=== PATIENT | female | born 1960 | race Caucasian/White ===

== ENCOUNTER 2016-09-15 16:33 | Inpatient (IN) ==
[2016-09-15 17:13] LABS: Basophils % 0.3 %; Eosinophils # 0.2 K/mcL (0.0-0.6); Eosinophils % 1.6 %; Hematocrit 42.5 % (35.3-44.9); Hemoglobin 13.4 g/dL (11.5-15.4); Immature Granulocytes % 0.4 % (0-4); Lymphocytes # 2.9 K/mcL (0.6-4.6); Lymphocytes % 26.5 %; Mean Corpuscular HGB Conc 31.5 g/dL (31.6-35.5); Mean Corpuscular Hemoglobin 27.3 pg (28.0-33.3); Mean Corpuscular Volume 86.7 fL (83.0-100.0); Mean Platelet Volume 11.7 fL (9.4-12.4); Neutrophils # 6.9 K/mcL (1.6-8.9); Platelet Count 423 K/mcL (140-400); Segmented Neutrophils % 62.2 %
[2016-09-15 17:16] LABS: INR 1.1; Prothrombin Time 12.1 Seconds (9.4-12.1)
[2016-09-15 17:18] LABS: Bilirubin,Urine Negative (Negative); Blood,Urine Negative (Negative); Clarity,Urine Cloudy (Clear); Color,Urine Yellow (Yellow); Glucose,Urine (UA) Normal (Normal); Ketones,Urine Negative (Negative); Leukocyte Esterase,Urine Negative (Negative); Nitrite,Urine Negative (Negative); Protein,Urine Negative (Neg-Trace); Specific Gravity,Urine 1.005 (1.010-1.025); Urobilinogen,Urine Normal (Normal)
[2016-09-15 17:25] LABS: VBG HCO3 28.1 mEq/L (21-27); VBG PH 7.34 pH Units (7.32-7.42)
[2016-09-15 17:28] LABS: Amphetamine Screen,Urine Negative ng/mL (Cutoff=1000); Barbiturate Screen,Urine Negative ng/mL (Cutoff=200); Benzodiazepines Screen,Urine Positive ng/mL (Cutoff=200); Cannabinoid Screen,Urine Positive ng/mL (Cutoff = 50); Cocaine Screen,Urine Negative ng/mL (Cutoff= 300); Opiate Screen,Urine Negative ng/mL (Cutoff=300); Phencyclidine Screen,Urine Negative ng/mL (Cutoff=25)
[2016-09-15 17:29] LABS: Squamous Epithelial Cell,Urine Many per lpf (None-Few)
[2016-09-15] MEDS ORDERED: 0.9 % Sodium Chloride 1,000 ML IVC ONE (17:30)
[2016-09-15 17:31] LABS: Bacteria,Urine Moderate per hpf (None-Few); RBC,Urine 0-3 per hpf (0-3)
[2016-09-15 17:31] LABS: Alanine Aminotransferase 7 Units/L (0-55); Albumin 2.9 g/dL (3.5-5.0); Albumin/Globulin Ratio 0.7 (1.1-2.2); Alkaline Phosphatase 162 Units/L (38-126); Aspartate Amino Transferase 16 Units/L (5-34); BUN/Creatinine Ratio 4 (6-26); Bilirubin,Total 0.3 mg/dL (0.2-1.2); Calcium 9.4 mg/dL (8.6-10.8); Carbon Dioxide 25 mEq/L (19-29); Chloride 105 mEq/L (98-109); Globulin 3.9 g/dL (2.4-3.5); Glucose 103 mg/dL (70-99); Osmolality,Calculated 289 (280-300); Potassium 3.1 mEq/L (3.5-4.5); Sodium 141 mEq/L (136-145); Total Protein 6.8 g/dL (6.0-8.3); eGFR For African Americans > 60 (> 60); eGFR For Non-African Americans > 60 (> 60)
[2016-09-15 17:34] LABS: Acetaminophen < 1.0 mcg/mL (10-30); Blood Urea Nitrogen 4 mg/dL (7-20); Ethanol < 10 mg/dL (0-10)
[2016-09-15 17:35] LABS: Salicylate < 5.0 mg/dL (15-30)
[2016-09-15 17:51] LABS: Thyroid Stimulating Hormone 1.623 mcIU/mL (0.350-4.840)
[2016-09-15] MEDS ORDERED: Aspirin 81 MG TAB.CHEW PO STA (18:00)
--- NOTE | 2016-09-15 18:44 | Emergency Department Note ---
Disposition Clinical Impression: CVA (cerebral vascular accident) Qualifiers: CVA mechanism: other Qualified Code(s): I63.8 - Other cerebral infarction Disposition: Admitted As Inpatient Condition: Undetermined General Adult HPI - General Chief complaint: ED Neuro Symptoms/Deficit Stated complaint: neuro symptoms x's 2 days Source: EMS Limitations: physical limitation Nursing Notes Reviewed: Yes Vital Signs Reviewed: Yes - History of Present Illness HPI Narrative: This is a 56-year-old female who presents with concern for confusion. She does not a history of psychiatric-related diseases and is questionably residing in a psychiatric facility. Apparently they noticed that she has been more confused over the past 2 days. She complained of some difficulty finding words as well as some dysarthria. She had no weakness. Ultimately they sent her to the emergency room for evaluation of her she became lost on her way here and was found actually at the outpatient lab. She was walking around and acting confused. The onset of her symptoms was 2 days ago. She has no history of past stroke. She has no chest pain. She has no nausea. She has no vomiting. She has no diarrhea. . Pain Scale: 0 - Related Data Home Medications Medication Instructions Recorded Confirmed Benztropine [Cogentin] 1 mg PO HS 02/17/15 09/15/16 Cholecalciferol (Vitamin D3) 1,000 mg PO DAILY 02/17/15 09/15/16 [Vitamin D] Diazepam [Valium] 5 mg PO BID 02/17/15 09/15/16 Omeprazole [Prilosec] 40 mg PO DAILY 02/17/15 09/15/16 Pravastatin Sodium [Pravachol] 40 mg PO HS 02/17/15 09/15/16 Pregabalin [Lyrica] 100 mg PO TID 02/17/15 09/15/16 Albuterol Sulfate [Proair Hfa] 2 puff IH QID PRN 07/20/16 09/15/16 Budesonide/Formoterol 160/4.5 2 puff IH BIDR 07/20/16 09/15/16 [Symbicort 160/4.5] Doxepin HCl 10 mg PO TID 07/20/16 09/15/16 diazePAM [Valium] 2 mg PO BID 07/20/16 09/15/16 lamoTRIgine [Lamotrigine] 200 mg PO QAM 07/20/16 09/15/16 Albuterol Neb [Proventil Neb] 2.5 mg IH TID PRN 09/15/16 09/15/16 Lurasidone HCl [Latuda] 120 mg PO DAILY 09/15/16 09/15/16 Oxycodone HCl 10 mg PO Q6H PRN 09/15/16 09/15/16 Trazodone HCl 200 mg PO HS 09/15/16 09/15/16 rOPINIRole [Requip] 1 mg PO HS 09/15/16 09/15/16 Allergies Allergy/AdvReac Type Severity Reaction Status Date / Time Erythromycin Base Allergy Swelling Verified 09/15/16 16:35 of Lip/Tongue/Throat hydroxyzine [From Vistaril] Allergy See Verified 09/15/16 16:35 Comments Penicillins Allergy Swelling Verified 09/15/16 16:35 of Lip/Tongue/Throat All systems ED: reviewed and negative except as stated. 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 history - Social History Smoking Status: Current every day smoker Smokeless Tobacco Status: No Alcohol use: Reports: none Drug use: Reports: marijuana Physical Exam - General Limitations: physical limitation General appearance: alert, in no apparent distress - Head Head exam: atraumatic - Eye Eye exam: Present: normal appearance - ENT ENT exam: normal exam - Neck Neck exam: Present: normal inspection - Chest Chest inspection: Present: normal inspection - Respiratory Respiratory exam: Present: normal lung sounds bilaterally - Cardiovascular Cardiovascular exam: Present: regular rate, normal rhythm - Abdominal Exam Abdominal exam: Present: soft, Non-Tender - Extremities Exam Extremities exam: Present: normal inspection - Expanded Lower Extremity Exam Neurovascular/Tendon exam: Present: normal capillary refill Gait: observed and normal - Back Exam Back exam: Present: normal inspection - Neurological Exam Neurological exam: Present: alert, normal gait, reflexes normal. Absent: oriented X3, motor sensory deficit - Psychiatric Psychiatric exam: Present: depressed, flat affect - Skin Skin exam: Present: warm, dry - Other Other exam information: Mild dysarthia, no focal weakness, No sensory abnormality. Course Vital Signs Temperature 98.0 F 09/15/16 16:35 Pulse Rate 94 09/15/16 16:35 Respiratory Rate 15 09/15/16 16:35 Blood Pressure 139/94 09/15/16 16:35 O2 Sat by Pulse Oximetry 94 09/15/16 16:35 Temperature 98.0 F 09/15/16 16:35 Pulse Rate 87 09/15/16 18:32 Respiratory Rate 16 09/15/16 18:32 Blood Pressure 125/84 09/15/16 18:32 O2 Sat by Pulse Oximetry 98 09/15/16 18:10 Oxygen Delivery Oxygen Delivery Nasal Cannula Medical Decision Making - MDM Narrative Medical decision making narrative: I suspect acute stroke. As such I did order a CTA of the head and neck. This does show that she had a subacute stroke which per the timing of her symptoms correlates accurately. I would implement strategies for permissive hypertension at this point. Bedside swallowing evaluation. 325 mg aspirin given. Monitor neuro status. NIH score of 1 at time of admission. Stroke alert not called as she is 2 days into her disease process. We will need to admit for stroke workup. She was ultimately found to have lactic acidosis. IV hydration was provided. Repeat lactate was obtained. I do not suspect infection at this time. She is afebrile. She has no leukocytosis. She does have urine drug screen positive for benzodiazepines as well as cannabinoids - Medical Records Medical records reviewed: Yes I reviewed the patient's medical records. - Lab Data Lab results reviewed: Yes I reviewed the patient's lab results. Result diagrams: 09/15/16 16:58 09/15/16 16:58 Lab Results 09/15/16 09/15/16 09/15/16 Range/Units 16:45 16:45 16:58 WBC 11.1 (4.3-11.1) K/mcL RBC 4.90 (3.82-4.97) M/mcL Hgb 13.4 (11.5-15.4) g/dL Hct 42.5 (35.3-44.9) % MCV 86.7 (83.0-100.0) fL MCH 27.3 L (28.0-33.3) pg MCHC 31.5 L (31.6-35.5) g/dL RDW 16.0 H (11.5-14.5) % Plt Count 423 H (140-400) K/mcL MPV 11.7 (9.4-12.4) fL Immature Gran % 0.4 (0-4) % Seg Neutrophils % 62.2 % Lymphocytes % 26.5 % Monocytes % 9.0 % Eosinophils % 1.6 % Basophils % 0.3 % Neutrophils # 6.9 (1.6-8.9) K/mcL Lymphocytes # 2.9 (0.6-4.6) K/mcL Monocytes # 1.0 (0.0-1.3) K/mcL Eosinophils # 0.2 (0.0-0.6) K/mcL Basophils # 0.0 (0.0-0.2) K/mcL PT (9.4-12.1) Seconds INR VBG pH (7.32-7.42) pH Units VBG pCO2 (41-51) mmHg VBG pO2 (25-40) mmHg VBG HCO3 (21-27) mEq/L Sodium (136-145) mEq/L Potassium (3.5-4.5) mEq/L Chloride (98-109) mEq/L Carbon Dioxide (19-29) mEq/L BUN (7-20) mg/dL Creatinine (0.57-1.11) mg/dL Est GFR ( Amer) (> 60) Est GFR (Non-Af Amer) (> 60) BUN/Creatinine Ratio (6-26) Glucose (70-99) mg/dL Calculated Osmolality (280-300) Lactic Acid (0.5-2.2) mmol/L Calcium (8.6-10.8) mg/dL Total Bilirubin (0.2-1.2) mg/dL AST (5-34) Units/L ALT (0-55) Units/L Alkaline Phosphatase (38-126) Units/L Ammonia (18-72) mcmol/L Troponin I (0-0.03) ng/mL B-Natriuretic Peptide (0-100) pg/mL Serum Total Protein (6.0-8.3) g/dL Albumin (3.5-5.0) g/dL Globulin (2.4-3.5) g/dL Albumin/Globulin Ratio (1.1-2.2) TSH (0.350-4.840) mcIU/mL Urine Color Yellow (Yellow) Urine Clarity Cloudy A (Clear) Urine pH 6.0 (5.0-8.0) pH Units Ur Specific [place] 1.005 L (1.010-1.025) Urine Protein Negative (Neg-Trace) mg/dL Urine Glucose (UA) Normal (Normal) mg/dL Urine Ketones Negative (Negative) mg/dL Urine Blood Negative (Negative) Urine Nitrite Negative (Negative) Urine Bilirubin Negative (Negative) Urine Urobilinogen Normal (Normal) mg/dL Ur Leukocyte Esterase Negative (Negative) Urine Microscopic RBC 0-3 (0-3) per hpf Urine Microscopic WBC 5-15 H (0-3) per hpf Ur Squamous Epith Cells Many H (None-Few) per lpf Urine Bacteria Moderate H (None-Few) per hpf Hyaline Casts Test Not Performed Ur Culture Indicated? YES A (NO) Salicylates (15-30) mg/dL Urine Opiates Screen Negative (Hhfgzf=040) ng/mL Acetaminophen (10-30) mcg/mL Ur Barbiturates Screen Negative (Rptwwy=627) ng/mL Ur Phencyclidine Scrn Negative (Cutoff=25) ng/mL Ur Amphetamines Screen Negative (Biblwi=7743) ng/mL U Benzodiazepines Scrn Positive H (Qcasrr=561) ng/mL Urine Cocaine Screen Negative (Cutoff= 300) ng/mL U Marijuana (THC) Screen Positive H (Cutoff = 50) ng/mL Ethyl Alcohol (0-10) mg/dL 09/15/16 09/15/16 09/15/16 Range/Units 16:58 16:58 16:58 WBC (4.3-11.1) K/mcL RBC (3.82-4.97) M/mcL Hgb (11.5-15.4) g/dL Hct (35.3-44.9) % MCV (83.0-100.0) fL MCH (28.0-33.3) pg MCHC (31.6-35.5) g/dL RDW (11.5-14.5) % Plt Count (140-400) K/mcL MPV (9.4-12.4) fL Immature Gran % (0-4) % Seg Neutrophils % % Lymphocytes % % Monocytes % % Eosinophils % % Basophils % % Neutrophils # (1.6-8.9) K/mcL Lymphocytes # (0.6-4.6) K/mcL Monocytes # (0.0-1.3) K/mcL Eosinophils # (0.0-0.6) K/mcL Basophils # (0.0-0.2) K/mcL PT 12.1 (9.4-12.1) Seconds INR 1.1 VBG pH (7.32-7.42) pH Units VBG pCO2 (41-51) mmHg VBG pO2 (25-40) mmHg VBG HCO3 (21-27) mEq/L Sodium 141 (136-145) mEq/L Potassium 3.1 L (3.5-4.5) mEq/L Chloride 105 (98-109) mEq/L Carbon Dioxide 25 (19-29) mEq/L BUN 4 L (7-20) mg/dL Creatinine 0.90 (0.57-1.11) mg/dL Est GFR ( Amer) > 60 (> 60) Est GFR (Non-Af Amer) > 60 (> 60) BUN/Creatinine Ratio 4 L (6-26) Glucose 103 H (70-99) mg/dL Calculated Osmolality 289 (280-300) Lactic Acid 2.6 H (0.5-2.2) mmol/L Calcium 9.4 (8.6-10.8) mg/dL Total Bilirubin 0.3 (0.2-1.2) mg/dL AST 16 (5-34) Units/L ALT 7 (0-55) Units/L Alkaline Phosphatase 162 H (38-126) Units/L Ammonia (18-72) mcmol/L Troponin I (0-0.03) ng/mL B-Natriuretic Peptide (0-100) pg/mL Serum Total Protein 6.8 (6.0-8.3) g/dL Albumin 2.9 L (3.5-5.0) g/dL Globulin 3.9 H (2.4-3.5) g/dL Albumin/Globulin Ratio 0.7 L (1.1-2.2) TSH 1.623 (0.350-4.840) mcIU/mL Urine Color (Yellow) Urine Clarity (Clear) Urine pH (5.0-8.0) pH Units Ur Specific [place] (1.010-1.025) Urine Protein (Neg-Trace) mg/dL Urine Glucose (UA) (Normal) mg/dL Urine Ketones (Negative) mg/dL Urine Blood (Negative) Urine Nitrite (Negative) Urine Bilirubin (Negative) Urine Urobilinogen (Normal) mg/dL Ur Leukocyte Esterase (Negative) Urine Microscopic RBC (0-3) per hpf Urine Microscopic WBC (0-3) per hpf Ur Squamous Epith Cells (None-Few) per lpf Urine Bacteria (None-Few) per hpf Hyaline Casts Ur Culture Indicated? (NO) Salicylates < 5.0 L (15-30) mg/dL Urine Opiates Screen (Ojivmr=764) ng/mL Acetaminophen < 1.0 L (10-30) mcg/mL Ur Barbiturates Screen (Vfexhw=500) ng/mL Ur Phencyclidine Scrn (Cutoff=25) ng/mL Ur Amphetamines Screen (Pihatu=6149) ng/mL U Benzodiazepines Scrn (Fklvvm=822) ng/mL Urine Cocaine Screen (Cutoff= 300) ng/mL U Marijuana (THC) Screen (Cutoff = 50) ng/mL Ethyl Alcohol < 10 (0-10) mg/dL 09/15/16 09/15/16 09/15/16 Range/Units 16:58 16:58 16:58 WBC (4.3-11.1) K/mcL RBC (3.82-4.97) M/mcL Hgb (11.5-15.4) g/dL Hct (35.3-44.9) % MCV (83.0-100.0) fL MCH (28.0-33.3) pg MCHC (31.6-35.5) g/dL RDW (11.5-14.5) % Plt Count (140-400) K/mcL MPV (9.4-12.4) fL Immature Gran % (0-4) % Seg Neutrophils % % Lymphocytes % % Monocytes % % Eosinophils % % Basophils % % Neutrophils # (1.6-8.9) K/mcL Lymphocytes # (0.6-4.6) K/mcL Monocytes # (0.0-1.3) K/mcL Eosinophils # (0.0-0.6) K/mcL Basophils # (0.0-0.2) K/mcL PT (9.4-12.1) Seconds INR VBG pH (7.32-7.42) pH Units VBG pCO2 (41-51) mmHg VBG pO2 (25-40) mmHg VBG HCO3 (21-27) mEq/L Sodium (136-145) mEq/L Potassium (3.5-4.5) mEq/L Chloride (98-109) mEq/L Carbon Dioxide (19-29) mEq/L BUN (7-20) mg/dL Creatinine (0.57-1.11) mg/dL Est GFR ( Amer) (> 60) Est GFR (Non-Af Amer) (> 60) BUN/Creatinine Ratio (6-26) Glucose (70-99) mg/dL Calculated Osmolality (280-300) Lactic Acid (0.5-2.2) mmol/L Calcium (8.6-10.8) mg/dL Total Bilirubin (0.2-1.2) mg/dL AST (5-34) Units/L ALT (0-55) Units/L Alkaline Phosphatase (38-126) Units/L Ammonia 20 (18-72) mcmol/L Troponin I 0.01 (0-0.03) ng/mL B-Natriuretic Peptide 11 (0-100) pg/mL Serum Total Protein (6.0-8.3) g/dL Albumin (3.5-5.0) g/dL Globulin (2.4-3.5) g/dL Albumin/Globulin Ratio (1.1-2.2) TSH (0.350-4.840) mcIU/mL Urine Color (Yellow) Urine Clarity (Clear) Urine pH (5.0-8.0) pH Units Ur Specific [place] (1.010-1.025) Urine Protein (Neg-Trace) mg/dL Urine Glucose (UA) (Normal) mg/dL Urine Ketones (Negative) mg/dL Urine Blood (Negative) Urine Nitrite (Negative) Urine Bilirubin (Negative) Urine Urobilinogen (Normal) mg/dL Ur Leukocyte Esterase (Negative) Urine Microscopic RBC (0-3) per hpf Urine Microscopic WBC (0-3) per hpf Ur Squamous Epith Cells (None-Few) per lpf Urine Bacteria (None-Few) per hpf Hyaline Casts Ur Culture Indicated? (NO) Salicylates (15-30) mg/dL Urine Opiates Screen (Psweeu=692) ng/mL Acetaminophen (10-30) mcg/mL Ur Barbiturates Screen (Xalwgt=198) ng/mL Ur Phencyclidine Scrn (Cutoff=25) ng/mL Ur Amphetamines Screen (Smqwqd=7981) ng/mL U Benzodiazepines Scrn (Ncdsfj=500) ng/mL Urine Cocaine Screen (Cutoff= 300) ng/mL U Marijuana (THC) Screen (Cutoff = 50) ng/mL Ethyl Alcohol (0-10) mg/dL 09/15/16 Range/Units 16:58 WBC (4.3-11.1) K/mcL RBC (3.82-4.97) M/mcL Hgb (11.5-15.4) g/dL Hct (35.3-44.9) % MCV (83.0-100.0) fL MCH (28.0-33.3) pg MCHC (31.6-35.5) g/dL RDW (11.5-14.5) % Plt Count (140-400) K/mcL MPV (9.4-12.4) fL Immature Gran % (0-4) % Seg Neutrophils % % Lymphocytes % % Monocytes % % Eosinophils % % Basophils % % Neutrophils # (1.6-8.9) K/mcL Lymphocytes # (0.6-4.6) K/mcL Monocytes # (0.0-1.3) K/mcL Eosinophils # (0.0-0.6) K/mcL Basophils # (0.0-0.2) K/mcL PT (9.4-12.1) Seconds INR VBG pH 7.34 (7.32-7.42) pH Units VBG pCO2 52 H (41-51) mmHg VBG pO2 21 L (25-40) mmHg VBG HCO3 28.1 H (21-27) mEq/L Sodium (136-145) mEq/L Potassium (3.5-4.5) mEq/L Chloride (98-109) mEq/L Carbon Dioxide (19-29) mEq/L BUN (7-20) mg/dL Creatinine (0.57-1.11) mg/dL Est GFR ( Amer) (> 60) Est GFR (Non-Af Amer) (> 60) BUN/Creatinine Ratio (6-26) Glucose (70-99) mg/dL Calculated Osmolality (280-300) Lactic Acid (0.5-2.2) mmol/L Calcium (8.6-10.8) mg/dL Total Bilirubin (0.2-1.2) mg/dL AST (5-34) Units/L ALT (0-55) Units/L Alkaline Phosphatase (38-126) Units/L Ammonia (18-72) mcmol/L Troponin I (0-0.03) ng/mL B-Natriuretic Peptide (0-100) pg/mL Serum Total Protein (6.0-8.3) g/dL Albumin (3.5-5.0) g/dL Globulin (2.4-3.5) g/dL Albumin/Globulin Ratio (1.1-2.2) TSH (0.350-4.840) mcIU/mL Urine Color (Yellow) Urine Clarity (Clear) Urine pH (5.0-8.0) pH Units Ur Specific [place] (1.010-1.025) Urine Protein (Neg-Trace) mg/dL Urine Glucose (UA) (Normal) mg/dL Urine Ketones (Negative) mg/dL Urine Blood (Negative) Urine Nitrite (Negative) Urine Bilirubin (Negative) Urine Urobilinogen (Normal) mg/dL Ur Leukocyte Esterase (Negative) Urine Microscopic RBC (0-3) per hpf Urine Microscopic WBC (0-3) per hpf Ur Squamous Epith Cells (None-Few) per lpf Urine Bacteria (None-Few) per hpf Hyaline Casts Ur Culture Indicated? (NO) Salicylates (15-30) mg/dL Urine Opiates Screen (Zogtfr=478) ng/mL Acetaminophen (10-30) mcg/mL Ur Barbiturates Screen (Bixajh=007) ng/mL Ur Phencyclidine Scrn (Cutoff=25) ng/mL Ur Amphetamines Screen (Ryniqc=1385) ng/mL U Benzodiazepines Scrn (Kbzugy=679) ng/mL Urine Cocaine Screen (Cutoff= 300) ng/mL U Marijuana (THC) Screen (Cutoff = 50) ng/mL Ethyl Alcohol (0-10) mg/dL Critical Care Time Total Critical Care Time: 31 Attestation: 31 minutes of critical care time was provided For This Patient Suffering from Acute Cerebrovascular Accident. Critical Care Time Was Excluding Billable Procedures. The Patient Remains in Critical Condition with High Potential for Life-Threatening Deterioration.
[2016-09-15] MEDS ORDERED: *HR* OxyCODONE Immed Rel 5 MG TABLET PO PRN ×2 (20:23→20:26)
[2016-09-15] MEDS ORDERED: Acetaminophen 325 MG TABLET PO PRN (20:23)
[2016-09-15] MEDS ORDERED: Naloxone 0.4 MG/ML INJ IVP PRN (20:23)
[2016-09-15] MEDS ORDERED: Albuterol 2.5 MG/3 ML NEBULIZER IH PRN (20:26)
--- NOTE | 2016-09-15 20:34 | Internal Med History&Physical ---
Date of Encounter: 09/15/16 Time of Encounter: 20:29 Assessment and Plan (1) CVA (cerebral vascular accident) Current visit: Yes Status: Acute Patient presented with slurred speech and confusion. Per the patient his symptoms started 3 days ago she is outside the window for TPA. CT of the head showed subacute infarct in the left posterior MCA territory. No evidence of hemorrhage. CTA of the neck showed no significant stenosis of bilateral carotids. EKG was unremarkable. Will obtain echo, check lipid panel and A1c in the morning. We will consult neurology, PT, OT, speech therapy. Patient had no difficulty swallowing or concerns for aspiration at bedside eval so we will allow the patient to eat. Patient been placed on aspirin and statin. Qualifiers: CVA mechanism: unspecified Qualified Code(s): I63.9 - Cerebral infarction, unspecified (2) Hyperlipidemia Current visit: Yes Status: Acute Continue statin. Check lipid panel in the morning. Qualifiers: Hyperlipidemia type: unspecified Qualified Code(s): E78.5 - Hyperlipidemia , unspecified (3) Bipolar disorder Current visit: Yes Status: Acute Patient appears psychiatrically stable this time. We will continue her home medications. Qualifiers: Active/Remission status: remission status unspecified Qualified Code(s): F31.9 - Bipolar disorder, unspecified (4) COPD (chronic obstructive pulmonary disease) Current visit: Yes Status: Acute No evidence of acute exacerbation. Continue Symbicort and when necessary albuterol. Qualifiers: COPD type: unspecified COPD Qualified Code(s): J44.9 - Chronic obstructive pulmonary disease, unspecified (5) GERD (gastroesophageal reflux disease) Current visit: Yes Status: Acute Continue PPI. Qualifiers: Esophagitis presence: esophagitis presence not specified Qualified Code(s) : K21.9 - Gastro-esophageal reflux disease without esophagitis (6) Anxiety Current visit: Yes Status: Acute Continue Valium. Patient does not appear acutely anxious at this time. (7) DVT prophylaxis Current visit: Yes Status: Acute EPCDs. We will hold off on pharmacologic DVT prophylaxis given acute CVA. Internal Medicine - H&P: HPI Chief complaint: Slurred Speech History of present illness: Ms. Spence is a 56 year old female with history of COPD and bipolar disorder presents with slurred speech and confusion. Patient states the symptoms started 3 days ago and have been gradually getting worse. She states she has never felt anything like this before. She has also had difficulty finding her words. Patient states she has never had anything like this before. Patient also reports bilateral lower extremity weakness but denies weakness or any symptoms on one side of her body. She denies fall, numbness, tingling. Patient does state that she has had a headache but that has been present for about 2 weeks. She denies any fever, chills, chest pain, shortness of breath, abdominal pain, nausea, vomiting, diarrhea, dysuria. Past Med Surg Social Fam HX - Past Medical History Medical history: COPD, GERD, hyperlipidemia, myocardial infarction, seizures, thyroid disease Psychiatric history: anxiety, bipolar, depression - Past Surgical History Surgical History: , cholecystectomy, hysterectomy, other - Social History Smoking Status: Current every day smoker Smokeless Tobacco Status: No Alcohol use: none Drug use: marijuana - Additional Family History Additional family history: Patient denies any pertinent family history. Internal Medicine - H&P: Meds Benztropine [Cogentin] 1 mg PO HS 02/17/15 [History] Cholecalciferol (Vitamin D3) [Vitamin D] 1,000 mg PO DAILY 02/17/15 [History] Diazepam [Valium] 5 mg PO BID 02/17/15 [History] Omeprazole [Prilosec] 40 mg PO DAILY 02/17/15 [History] Pravastatin Sodium [Pravachol] 40 mg PO HS 02/17/15 [History] Pregabalin [Lyrica] 100 mg PO TID 02/17/15 [History] Albuterol Sulfate [Proair Hfa] 2 puff IH QID PRN 07/20/16 [History] Budesonide/Formoterol 160/4.5 [Symbicort 160/4.5] 2 puff IH BIDR 07/20/16 [ History] Doxepin HCl 10 mg PO TID 07/20/16 [History] diazePAM [Valium] 2 mg PO BID 07/20/16 [History] lamoTRIgine [Lamotrigine] 200 mg PO QAM 07/20/16 [History] Albuterol Neb [Proventil Neb] 2.5 mg IH TID PRN 09/15/16 [History] Lurasidone HCl [Latuda] 120 mg PO DAILY 09/15/16 [History] Oxycodone HCl 10 mg PO Q6H PRN 09/15/16 [History] Trazodone HCl 200 mg PO HS 09/15/16 [History] rOPINIRole [Requip] 1 mg PO HS 09/15/16 [History] Allergies Erythromycin Base Allergy (Verified 09/15/16 16:35) Swelling of Lip/Tongue/Throat hydroxyzine [From Vistaril] Allergy (Verified 09/15/16 16:35) See Comments MUSCLE SPASMS "MESSED ME ALL UP" Penicillins Allergy (Verified 09/15/16 16:35) Swelling of Lip/Tongue/Throat All Systems PM: A 10-system review of systems was performed and is negative for pertinent findings except as documented above in the HPI. - Constitutional Constitutional: no chills, no fever(s) - EENT Eyes: no blurry vision, no change in vision Nose, mouth and throat: no bleeding gums, no sinus pain, no sinus pressure, no sore throat - Cardiovascular Cardiovascular ROS IM: no chest pain, no dyspnea, no edema, no lightheadedness, no palpitations, no syncope - Respiratory Respiratory: no cough, no dyspnea, no chest congestion, no excessive phlegm production, no change in phlegm color - Gastrointestinal Gastrointestinal: no abdominal pain, no diarrhea, no nausea, no vomiting - Genitourinary Genitourinary: no dysuria, no hematuria - Musculoskeletal Musculoskeletal ROS IM: no neck pain, no numbness, no tingling - Integumentary Integumentary IM: no new lesions - Neurological Neurological ROS: abnormal speech, confusion, disequilibrium, headache(s), no dizziness, no focal weakness, no numbness, no tingling - Psychiatric Psychiatric: anxiety, no behavioral changes, no panic attacks - Hematologic/Lymphatic Hematologic/Lymphatic: no easy bleeding, no easy bruising - Constitutional Vitals: Temp Pulse Resp BP Pulse Ox 98.3 F 98 17 130/56 95 09/15/16 19:16 09/15/16 19:16 09/15/16 19:16 09/15/16 19:16 09/15/16 19:16 General appearance: Present: A&O X 3, pleasant, no acute distress - Head Head exam: Present: atraumatic, normal inspection, normocephalic - Eye Eye exam: Present: EOMI, normal appearance, PERRL - ENT ENT exam: Present: mucous membranes moist, normal oropharynx - Neck Neck exam general surgery: Present: full ROM, supple. Absent: tenderness - Respiratory Respiratory exam: Present: CTAB. Absent: rales, rhonchi, wheezes - Cardiovascular Cardiovascular exam: Present: RRR. Absent: gallop, rubs, systolic murmur, tachycardia - GI/Abdominal GI/Abdominal exam: Present: normal bowel sounds, soft. Absent: distended, tenderness - Extremities Exam Extremities exam: Present: warm. Absent: pedal edema, tenderness - Neurological Exam Neurological exam: Present: alert, CN II-XII intact, oriented X3, reflexes normal, strengths equal and symetr throughout, speech deficit. Absent: motor sensory deficit, facial droop Additional comments: Lower extremities are weak bilaterally. - Psychiatric Psychiatric exam: Present: depressed, flat affect - Skin Skin exam: Present: dry, intact, warm Internal Med - H&P Results - Labs CBC & Chem 7: 09/15/16 16:58 09/15/16 16:58
[2016-09-15] MEDS ORDERED: Furosemide 20 MG/2 ML VIAL IVP ONE (21:05)
--- NOTE | 2016-09-15 21:11 | Event Note ---
Date of Encounter: 09/15/16 Time of Encounter: 21:09 Patient seen and examined with medical residents. Acute left CVA. She has some risk factors including age lifelong smoking and dyslipidemia. Will check electrocardiogram and continuous telemetry monitoring to look for atrial fibrillation. Echocardiogram will be checked. CT scan of the neck showed no evidence of "significant carotid disease. Stroke workup. NIH stroke scale Q4 hours. Patient is full code.
[2016-09-15] MEDS: Budesonide/Formoterol 160/4.5 MDI IH SCH (21:12)
[2016-09-15] MEDS: Pregabalin 50 MG CAPSULE PO SCH (22:13)
[2016-09-15] MEDS: rOPINIRole 1 MG TABLET PO SCH (22:13)
[2016-09-15] MEDS: diazePAM 5 MG TABLET PO SCH (22:13)
[2016-09-15] MEDS: traZODone 50 MG TABLET PO SCH (22:14)
[2016-09-15] MEDS: Nicotine 21 MG PATCH.TD24 TD SCH (22:14)
[2016-09-15] MEDS: (Doxepin Hcl [Doxepin Hcl] 10 MG) PO SCH (22:44)
[2016-09-16 06:00] LABS: Basophils % 0.3 %; Eosinophils # 0.2 K/mcL (0.0-0.6); Hematocrit 37.3 % (35.3-44.9); Hemoglobin 12.1 g/dL (11.5-15.4); Immature Granulocytes % 0.3 % (0-4); Lymphocytes # 2.6 K/mcL (0.6-4.6); Lymphocytes % 36.4 %; Mean Corpuscular HGB Conc 32.4 g/dL (31.6-35.5); Mean Corpuscular Hemoglobin 28.3 pg (28.0-33.3); Mean Corpuscular Volume 87.4 fL (83.0-100.0); Mean Platelet Volume 12.3 fL (9.4-12.4); Monocytes # 0.7 K/mcL (0.0-1.3); Monocytes % 10.1 %; Neutrophils # 3.6 K/mcL (1.6-8.9); Platelet Count 373 K/mcL (140-400); Red Blood Count 4.27 M/mcL (3.82-4.97); Red Cell Distribution Width 16.2 % (11.5-14.5); Segmented Neutrophils % 49.9 %
[2016-09-16 06:11] LABS: BUN/Creatinine Ratio 4 (6-26); Calcium 8.5 mg/dL (8.6-10.8); Carbon Dioxide 26 mEq/L (19-29); Chloride 110 mEq/L (98-109); Chol/HDL Ratio 2.6 (0-4.9); Cholesterol 103 mg/dL (< 200); Glucose 84 mg/dL (70-99); HDL Cholesterol 39 mg/dL (40-59); Hemoglobin A1C 5.1 %; LDL Cholesterol,Calculated 48 mg/dL (0-99); Osmolality,Calculated 296 (280-300); Potassium 3.5 mEq/L (3.5-4.5); Sodium 145 mEq/L (136-145); Triglycerides 81 mg/dL (< 150); eGFR For African Americans > 60 (> 60); eGFR For Non-African Americans > 60 (> 60)
[2016-09-16 06:13] LABS: Blood Urea Nitrogen 4 mg/dL (7-20)
[2016-09-16] MEDS: Budesonide/Formoterol 160/4.5 MDI IH SCH ×2 (07:46→21:57)
--- NOTE | 2016-09-16 08:17 | Neurology - Consult Note ---
<Toni Perez - Last Filed: 09/16/16 09:00> Date of Encounter: 09/16/16 Time of Encounter: 08:00 Assessment and Plan (1) CVA (cerebral vascular accident) Current Visit: Yes Status: Acute No previous history of stroke or atrial fibrillation. Currently on a monitor. CTA: infarct in posterior middle cerebral artery territory involving superior left parietal lobe. No major branch occlusion, significant stenosis, or cerebral aneurysm. CT Neck: mild narrowing at the origin of innominate artery. No significant stenosis of right tor left internal carotid arteries. No dissection present. Echocardiogram, PT, OT, speech therapy, lipids, and A1c ordered per hospitalist team. Will follow with results. Pending results the patient will be cleared for discharge from a neurology perspective after she has been seen by Dr. Don. She will need outpatient followup with neurology. Symptoms have improved since onset. Continue ASA 81mg and statin. Qualifiers: CVA mechanism: unspecified Qualified Code(s): I63.9 - Cerebral infarction, unspecified History of Present Illness Chief complaint: Slurred speech HPI: Ms. Spence is a 56 year old female with PMH significant for COPD, previous [place], HLD, thyroid disease, anxiety, bipolar disorder, and depression who presented to [facility] by the recommendation of her roommate for slow and slurred speech. She states that her symptoms started 3 days ago while she was at home in her apartment. She was having difficulty with word finding and was having some confusion and her speech had become slurred. She denies loss of bowel or bladder function. She denies focal weakness or numbness. She denies changes in vision and hearing. She denies chest pain. She states she does feel short of breath, but this is chronic for her. She continues to smoke at home. She states she feels as if her symptoms have resolved and this time and she is wanting to go home. She had a CTA of the head, which demonstrated an infarct in the posterior middle cerebral artery territory involving the superior left parietal lobe. there was no major branch occlusion, significant stenosis or cerebral aneurysm. She is able to state she is in a hospital in [place]. She knows her name, but she is not oriented to time. She was unaware what day of the week it was, and she thought the year was 2001. She did have one episode of confusion during ROS in which she stated she had problems with her bladder, but usually he doesn't have anything going on. When I asked her what she meant she stated she didn't know what she was talking about. Past Med Surg Social Fam HX - Past Medical History Medical history: COPD, GERD, hyperlipidemia, myocardial infarction, seizures, thyroid disease Psychiatric history: anxiety, bipolar, depression - Past Surgical History Surgical History: , cholecystectomy, hysterectomy, other - Social History Smoking Status: Current every day smoker Smokeless Tobacco Status: No Alcohol use: none Drug use: marijuana Medications and Allergies Benztropine [Cogentin] 1 mg PO HS 02/17/15 [History] Cholecalciferol (Vitamin D3) [Vitamin D] 1,000 mg PO DAILY 02/17/15 [History] Diazepam [Valium] 5 mg PO BID 02/17/15 [History] Omeprazole [Prilosec] 40 mg PO DAILY 02/17/15 [History] Pravastatin Sodium [Pravachol] 40 mg PO HS 02/17/15 [History] Pregabalin [Lyrica] 100 mg PO TID 02/17/15 [History] Albuterol Sulfate [Proair Hfa] 2 puff IH QID PRN 07/20/16 [History] Budesonide/Formoterol 160/4.5 [Symbicort 160/4.5] 2 puff IH BIDR 07/20/16 [ History] Doxepin HCl 10 mg PO TID 07/20/16 [History] diazePAM [Valium] 2 mg PO BID 07/20/16 [History] lamoTRIgine [Lamotrigine] 200 mg PO QAM 07/20/16 [History] Albuterol Neb [Proventil Neb] 2.5 mg IH TID PRN 09/15/16 [History] Lurasidone HCl [Latuda] 120 mg PO DAILY 09/15/16 [History] Oxycodone HCl 10 mg PO Q6H PRN 09/15/16 [History] Trazodone HCl 200 mg PO HS 09/15/16 [History] rOPINIRole [Requip] 1 mg PO HS 09/15/16 [History] Allergies Erythromycin Base Allergy (Verified 09/15/16 16:35) Swelling of Lip/Tongue/Throat hydroxyzine [From Vistaril] Allergy (Verified 09/15/16 16:35) See Comments MUSCLE SPASMS "MESSED ME ALL UP" Penicillins Allergy (Verified 09/15/16 16:35) Swelling of Lip/Tongue/Throat All Systems: A 10-system review of systems was performed and is negative for pertinent findings except as documented above in the HPI. Review of Systems: Negative except as stated in the HPI Physical Examination - Vital Signs Vital Signs: Initial Vital Signs Temp Pulse Resp BP Pulse Ox 98.0 F 94 15 139/94 94 09/15/16 16:35 09/15/16 16:35 09/15/16 16:35 09/15/16 16:35 09/15/16 16:35 - Constitutional General appearance: comfortable - Neurologic Sensorimotor examination: intact Detailed motor examination: grossly full strength in all extremities, full strength in all major muscle groups Motor examination - right side: 5/5: deltoids, biceps, triceps, wrist flexion, wrist extension, cable braider, hip flexors, tibialis Anterior, quadriceps, toe extension (EHL), plantarflexion Motor examination - left side: 5/5: deltoids, biceps, triceps, wrist flexion, wrist extension, hip flexors, cable braider, quadriceps, tibialis Anterior, toe extension (EHL), plantarflexion Detailed sensory examination: intact Reflexes: Biceps: 2+, Triceps: 2+, Brachioradialis: 2+, Patella: 2+, Achilles: 1 + Mental Status Examination: awake, alert, oriented to person, oriented to place, follows commands appropriately, answers questions appropriately, no agnosia, no aphasia, no aproxia, makes eye contact Cranial nerve examination: PERRL, EOMI, visual thompson intact, sensory to face intact, mastication intact, no facial asymmetry is present, no dysarthria, hearing is intact symmetrically, soft palate elevates bilaterally upon phonation , flexes SCM and trapezius muscles symmetrically with full power, tongue protrudes midline, no atrophy or facial fasiculations present Cerebellar examination: no dysmetria, no difficulty with rapid alternating movements Results - Laboratory Findings CBC and BMP: 09/16/16 04:59 09/16/16 04:59 Abnormal lab findings: Abnormal lab results RDW 16.2 % (11.5-14.5) H 09/16/16 04:59 VBG pCO2 52 mmHg (41-51) H 09/15/16 16:58 VBG pO2 21 mmHg (25-40) L 09/15/16 16:58 VBG HCO3 28.1 mEq/L (21-27) H 09/15/16 16:58 Chloride 110 mEq/L (98-109) H 09/16/16 04:59 BUN 4 mg/dL (7-20) L 09/16/16 04:59 BUN/Creatinine Ratio 4 (6-26) L 09/16/16 04:59 Lactic Acid 2.6 mmol/L (0.5-2.2) H 09/15/16 16:58 Calcium 8.5 mg/dL (8.6-10.8) L 09/16/16 04:59 Magnesium 1.3 mg/dL (1.6-2.6) L 09/16/16 04:59 Alkaline Phosphatase 162 Units/L (38-126) H 09/15/16 16:58 Albumin 2.9 g/dL (3.5-5.0) L 09/15/16 16:58 Globulin 3.9 g/dL (2.4-3.5) H 09/15/16 16:58 Albumin/Globulin Ratio 0.7 (1.1-2.2) L 09/15/16 16:58 HDL Cholesterol 39 mg/dL (40-59) L 09/16/16 04:59 Urine Clarity Cloudy (Clear) A 09/15/16 16:45 Ur Specific [place] 1.005 (1.010-1.025) L 09/15/16 16:45 Urine Microscopic WBC 5-15 per hpf (0-3) H 09/15/16 16:45 Ur Squamous Epith Cells Many per lpf (None-Few) H 09/15/16 16:45 Urine Bacteria Moderate per hpf (None-Few) H 09/15/16 16:45 Ur Culture Indicated? YES (NO) A 09/15/16 16:45 Salicylates < 5.0 mg/dL (15-30) L 09/15/16 16:58 Acetaminophen < 1.0 mcg/mL (10-30) L 09/15/16 16:58 U Benzodiazepines Scrn Positive ng/mL (Mzinjd=143) H 09/15/16 16:45 U Marijuana (THC) Screen Positive ng/mL (Cutoff = 50) H 09/15/16 16:45 Consult Discharge Plan - Plan Referrals: Ceasar Arce MD [Primary Care Provider] - <Yousif Mcdonnell - Last Filed: 09/16/16 09:05> Date of Encounter: 09/16/16 Assessment and Plan (1) CVA (cerebral vascular accident) Current Visit: Yes Status: Acute Qualifiers: CVA mechanism: embolism Precerebral and cerebral artery: middle cerebral artery Laterality of affected vessel: left Qualified Code(s): I63.412 - Cerebral infarction due to embolism of left middle cerebral artery History of Present Illness HPI: Ms. Spence is a 56 year old female All Systems: A 10-system review of systems was performed and is negative for pertinent findings except as documented above in the HPI. Physical Examination - Vital Signs Vital Signs: Initial Vital Signs Temp Pulse Resp BP Pulse Ox 98.0 F 94 15 139/94 94 09/15/16 16:35 09/15/16 16:35 09/15/16 16:35 09/15/16 16:35 09/15/16 16:35 Results - Laboratory Findings CBC and BMP: 09/16/16 04:59 09/16/16 04:59 Abnormal lab findings: Abnormal lab results RDW 16.2 % (11.5-14.5) H 09/16/16 04:59 VBG pCO2 52 mmHg (41-51) H 09/15/16 16:58 VBG pO2 21 mmHg (25-40) L 09/15/16 16:58 VBG HCO3 28.1 mEq/L (21-27) H 09/15/16 16:58 Chloride 110 mEq/L (98-109) H 09/16/16 04:59 BUN 4 mg/dL (7-20) L 09/16/16 04:59 BUN/Creatinine Ratio 4 (6-26) L 09/16/16 04:59 Lactic Acid 2.6 mmol/L (0.5-2.2) H 09/15/16 16:58 Calcium 8.5 mg/dL (8.6-10.8) L 09/16/16 04:59 Magnesium 1.3 mg/dL (1.6-2.6) L 09/16/16 04:59 Alkaline Phosphatase 162 Units/L (38-126) H 09/15/16 16:58 Albumin 2.9 g/dL (3.5-5.0) L 09/15/16 16:58 Globulin 3.9 g/dL (2.4-3.5) H 09/15/16 16:58 Albumin/Globulin Ratio 0.7 (1.1-2.2) L 09/15/16 16:58 HDL Cholesterol 39 mg/dL (40-59) L 09/16/16 04:59 Urine Clarity Cloudy (Clear) A 09/15/16 16:45 Ur Specific [place] 1.005 (1.010-1.025) L 09/15/16 16:45 Urine Microscopic WBC 5-15 per hpf (0-3) H 09/15/16 16:45 Ur Squamous Epith Cells Many per lpf (None-Few) H 09/15/16 16:45 Urine Bacteria Moderate per hpf (None-Few) H 09/15/16 16:45 Ur Culture Indicated? YES (NO) A 09/15/16 16:45 Salicylates < 5.0 mg/dL (15-30) L 09/15/16 16:58 Acetaminophen < 1.0 mcg/mL (10-30) L 09/15/16 16:58 U Benzodiazepines Scrn Positive ng/mL (Vrvgdf=040) H 09/15/16 16:45 U Marijuana (THC) Screen Positive ng/mL (Cutoff = 50) H 09/15/16 16:45
--- NOTE | 2016-09-16 09:17 | ECHO - Doppler Report ---
Echo with Saline Contrast Name: Candi Spence Date of Study: 09/15/2016 Date: 1960 Ht: 64.0 in Medical Record#: [id number] Age: 56 Wt: 170.0 lb Gender: Female BSA: 1.83 Order #: [id number] Location: [facility] Room #: [id number] Reading Physician: Zulma Ortega DO Pecan Mallow Dipper: Ravi Mcdonnell Ordering Physician: Hira Lee DO Primary Physician: Ceasar Arce MD Indications: Cerebrovascular Accident Impressions: LVEF 65%. Normal left ventricular size and systolic function. There is evidence of mild diastolic dysfunction of the left ventricle. Normal right ventricular size and function. No significant valvular dysfunction. No pulmonary hypertension. No PFO with saline contrast. Left Ventricular Wall Motion: Rest Echo Findings The mid inferior lateral and basal inferior lateral mckoy were not visualized. All other wall segments showed normal motion. Findings: Study Quality * Technically adequate exam. ECG Findings * Normal sinus rhythm. Aortic Valve * No aortic regurgitation. * Aortic valve not well visualized. * No aortic stenosis. Mitral Valve * No mitral regurgitation. * Normal mitral valve structure. * No mitral stenosis. Tricuspid Valve * Tricuspid valve not well visualized. * No tricuspid regurgitation. Pulmonic Valve * Pulmonic valve is not well visualized. * No pulmonic stenosis. * Trace pulmonic regurgitation. Pulmonary Artery * Pulmonary artery not well visualized. Right Ventricle * Normal right ventricular structure and function. Left Ventricle * Normal LV chamber size, wall thickness and function. * Mild left ventricular diastolic dysfunction. * LVEF 65%. Left Atrium * Normal left atrial size. Right Atrium * Normal right atrial size. Pericardium * There is no pericardial effusion present. Interatrial Septum * No evidence of PFO by color Doppler. * No evidence of PFO with agitated saline contrast. Aorta * Not well visualized. History Hypertension Hypercholesteremia History of Smoking Years 45 Packs 5 02/18/2014 a Previous Echo was performed. Contrast: Agitated saline 20 ml. Measurements: BP: 130/ 56 2D Normal Values RVIDd: 2.12 cm <2.7 cm IVSd: .82 cm 0.6 - 1.0 cm LVIDd: 5.00 cm 3.7 - 5.6 cm LVPWd: .79 cm 0.6 - 1.1 cm LVIDs: 4.05 cm 1.5 - 3.6 cm AO: 2.00 cm < 4.0 cm LA: 3.00 cm 2.0 - 4.0cm %FS: 19.00 cm >25 % LA volume: 59.7 Mitral Valve Peak E:.74 m/sec Peak A:1.14 m/sec E/A Ratio:0.7 Peak E' Lat Kings:9.25 cm/s Peak E' Med Kings:6.42 cm/s E/E' Lat Ratio:8.1 E/E' Med Ratio:11.6 Tricuspid Valve TV Regurg Peak Grad: 16.00mmHg TV Regurg Peak Kings: 2.01m/sec Updated by Zulma Ortega on 09/16/2016 9:12:07 AM electronically signed on 09/16/2016 9:12:51 AM with status of Final Wall Motion [place]: 1=Normal, 2=Hypokinesis, 3=Akinesis, 4=Dyskinesis, 5=Aneurysmal, 6=Hyperkinetic, X=Not Visualized (Blank)=Missing
[2016-09-16] MEDS ORDERED: 0.9 % Sodium Chloride 500 ML IVC ONE ×2 (10:29→11:07)
[2016-09-16] MEDS ORDERED: 0.9 % Sodium Chloride 1,000 ML IVC SCH (10:30)
[2016-09-16] MEDS ORDERED: Tetracaine/Benzocaine/Butamben 200MG/SPRAY (100SPY/BOT) MM ONE (11:07)
[2016-09-16] MEDS: *HR* Midazolam HCl 5 MG/5 ML VIAL IVP PRN ×3 (11:35→11:45)
[2016-09-16] MEDS: *HR* FentaNYL (PF) 100 MCG/2 ML VIAL IVP PRN ×2 (11:35→11:45)
[2016-09-16] MEDS: Nicotine 21 MG PATCH.TD24 TD SCH (13:58)
[2016-09-16] MEDS: Cholecalciferol (D-3) 1,000 UNIT TABLET PO SCH (13:59)
[2016-09-16] MEDS: Aspirin 81 MG TAB.CHEW PO SCH (13:59)
[2016-09-16] MEDS: lamoTRIgine 100 MG TABLET PO SCH (13:59)
[2016-09-16] MEDS: Pregabalin 50 MG CAPSULE PO SCH ×3 (13:59→20:20)
[2016-09-16] MEDS: diazePAM 5 MG TABLET PO SCH ×2 (13:59→20:21)
[2016-09-16] MEDS: *HR* Heparin 5,000 UNIT/ML VIAL SQ SCH ×2 (14:00→20:19)
[2016-09-16] MEDS: (Doxepin Hcl [Doxepin Hcl] 10 MG) PO SCH ×3 (14:00→20:21)
[2016-09-16] MEDS: Magnesium Oxide 400 MG TABLET PO SCH ×2 (14:06→20:21)
--- NOTE | 2016-09-16 14:56 | Discharge Summary ---
<Ryan Maddox - Last Filed: 09/16/16 17:57> Date of Encounter: 09/16/16 - Discharge Diagnosis (1) CVA (cerebral vascular accident) Status: Acute Qualifiers: CVA mechanism: embolism Precerebral and cerebral artery: middle cerebral artery Laterality of affected vessel: left Qualified Code(s): I63.412 - Cerebral infarction due to embolism of left middle cerebral artery (2) Hyperlipidemia Status: Chronic Qualifiers: Hyperlipidemia type: mixed hyperlipidemia Qualified Code(s): E78.2 - Mixed hyperlipidemia (3) COPD (chronic obstructive pulmonary disease) Status: Chronic Qualifiers: COPD type: unspecified COPD Qualified Code(s): J44.9 - Chronic obstructive pulmonary disease, unspecified (4) GERD (gastroesophageal reflux disease) Status: Chronic Qualifiers: Esophagitis presence: esophagitis presence not specified Qualified Code(s) : K21.9 - Gastro-esophageal reflux disease without esophagitis (5) Bipolar disorder Status: Chronic Qualifiers: Active/Remission status: remission status unspecified Qualified Code(s): F31.9 - Bipolar disorder, unspecified (6) Tobacco abuse Status: Chronic - Discharge Medications Prescriptions: Aspirin 81 mg PO DAILY #30 tab.chew Magnesium Oxide [Mag-Ox] 400 mg PO BID #60 tablet Home Medications: Benztropine [Cogentin] 1 mg PO HS 02/17/15 [History] Cholecalciferol (Vitamin D3) [Vitamin D] 1,000 mg PO DAILY 02/17/15 [History] Diazepam [Valium] 5 mg PO BID 02/17/15 [History] Omeprazole [PriLOSEC] 40 mg PO DAILY 02/17/15 [History] Pravastatin Sodium [Pravachol] 40 mg PO HS 02/17/15 [History] Pregabalin [Lyrica] 100 mg PO TID 02/17/15 [History] Albuterol Sulfate [Proair Hfa] 2 puff IH QID PRN 07/20/16 [History] Budesonide/Formoterol 160/4.5 [Symbicort 160/4.5] 2 puff IH BIDR 07/20/16 [ History] Doxepin HCl 10 mg PO TID 07/20/16 [History] diazePAM [Valium] 2 mg PO BID 07/20/16 [History] lamoTRIgine [Lamotrigine] 200 mg PO QAM 07/20/16 [History] Albuterol Neb [Proventil Neb] 2.5 mg IH TID PRN 09/15/16 [History] Lurasidone HCl [Latuda] 120 mg PO DAILY 09/15/16 [History] Oxycodone HCl 10 mg PO Q6H PRN 09/15/16 [History] Trazodone HCl 200 mg PO HS 09/15/16 [History] rOPINIRole [Requip] 1 mg PO HS 09/15/16 [History] Aspirin 81 mg PO DAILY #30 tab.chew 09/16/16 [Rx] Magnesium Oxide [Mag-Ox] 400 mg PO BID #60 tablet 09/16/16 [Rx] Allergies/Adverse Reactions: Allergies Erythromycin Base Allergy (Verified 09/15/16 16:35) Swelling of Lip/Tongue/Throat hydroxyzine [From Vistaril] Allergy (Verified 09/15/16 16:35) See Comments MUSCLE SPASMS "MESSED ME ALL UP" Penicillins Allergy (Verified 09/15/16 16:35) Swelling of Lip/Tongue/Throat Procedures/tests Complete & Pending: Procedures Performed prior 72 hours Category Date Time Status ECG 12 lead ECG [ECG] Routine Y 09/15/16 21:18 Completed Date of admission: 09/16/16 11:05 Primary care physician: Ceasar Arce MD - Patient Status Disposition: Home Health Service Condition: Good Functional capacity at discharge: independent ambulation Overall status at discharge: patient is progressing back to baseline - Discharge Instructions Instructions: Aspirin (By mouth), Magnesium Oxide (By mouth), Chronic Obstructive Pulmonary Disease (DC), Ischemic Stroke (DC), Ischemic Stroke (GEN) Follow Up With: Ceasar Arce MD [Primary Care Provider] - Daniel Tobias MD [Partnered Physician] - (patient is 56y/o female who presented to hospital for stroke. She had a hypercoaguable work up with results pending. ) Yousif Mcdonnell MD [Partnered Physician] - (hospital stroke follow up) Zulma Ortega DO [Partnered Physician] - (Patient had stroke. JOYCE negative for thrombus, valvular abnormalaties. Patient will need event recorder. ) Forms: ED Satisfaction Letter Additional Instructions: If you have recurrent slurred speech, facial droop, numbness on one side, weakness these are signs of stroke please come to ER immediately Take aspirin and pravastatin every day. Follow up with cardiology, hematology, and neurology appointments. Hospital course: Ms. Spence is a 56 year old female - Time Spent with Patient Total time spent providing and/or coordinating discharge services: 40min - Constitutional Vitals: Temp Pulse Resp BP Pulse Ox 98.2 F 84 16 82/58 93 09/16/16 16:00 09/16/16 16:00 09/16/16 16:00 09/16/16 16:00 09/16/16 16:00 - Stroke Contraindication Not Initiating IV-Tpa: Medical contraindication (Pt presented outside of treatment window.) Symptom Onset Unknown: Yes Has Patient Been Evaluated by Rehab for Stroke: Yes - Attending Attestation I examined this patient and my medical decision-making was reviewed with the Resident Physician on 09/16/16. I agree with the documented findings, disposition and treatment plan as described except to the extent set forth below. Ms. Spence is doing well at this time. She had MRI which shows L side CVA - no other acute. She is afebrile and vitals stable. Exam Alert. Comfortable Heart reg Lungs clear Plan D/C when can get ride Follow with PCP and neuro. <Yunior Vivas - Last Filed: 09/17/16 08:06> Date of Encounter: 09/16/16 Time of Encounter: 14:53 - Discharge Diagnosis (1) CVA (cerebral vascular accident) Priority: Primary Status: Acute Qualifiers: CVA mechanism: embolism Precerebral and cerebral artery: middle cerebral artery Laterality of affected vessel: left Qualified Code(s): I63.412 - Cerebral infarction due to embolism of left middle cerebral artery (2) Hyperlipidemia Priority: Secondary Status: Chronic Qualifiers: Hyperlipidemia type: mixed hyperlipidemia Qualified Code(s): E78.2 - Mixed hyperlipidemia (3) Bipolar disorder Priority: Secondary Status: Chronic Qualifiers: Active/Remission status: remission status unspecified Qualified Code(s): F31.9 - Bipolar disorder, unspecified (4) COPD (chronic obstructive pulmonary disease) Priority: Secondary Status: Chronic Qualifiers: COPD type: unspecified COPD Qualified Code(s): J44.9 - Chronic obstructive pulmonary disease, unspecified (5) GERD (gastroesophageal reflux disease) Priority: Secondary Status: Chronic Qualifiers: Esophagitis presence: esophagitis presence not specified Qualified Code(s) : K21.9 - Gastro-esophageal reflux disease without esophagitis (6) Anxiety Priority: Secondary Status: Acute (7) DVT prophylaxis Priority: Secondary Status: Acute (8) Magnesium deficiency Priority: Secondary Status: Acute Procedures/tests Complete & Pending: Procedures Performed prior 72 hours Category Date Time Status ECG 12 lead ECG [ECG] Routine Y 09/15/16 21:18 Completed Date of admission: 09/16/16 11:05 Primary care physician: Ceasar Arce MD Consults: Neurology Discharging clinician: Yunior Vivas Anticipated date of discharge: 09/16/16 - Patient Status Functional capacity at discharge: independent ambulation Overall status at discharge: patient is progressing back to baseline - Diet and Activity Activity: as per physical therapy Diet: low fat, low cholesterol, low salt diet Hospital course: Ms. Spence is a 56 year old female presented with chief complaint of slurred speech. 3 days ago patient had confusion, slurred speech, difficulty with finding words. She denied any loss of bowel or bladder function, weakness, numbness, vision changes, hearing changes. At the time of presentation patient says her symptoms were improving however she still had word finding difficulties. EKG shows sinus rhythm Patient was alert oriented to self, place , situation but not to time as morning. CT showed infarct in the posterior middle cerebral artery territory involving superior left parietal lobe. CTA head was negative for any major branch occlusion, stenosis or cerebral aneurysm. CT neck showed mild narrowing at the origin of innominate artery otherwise normal. X-ray showed mild pulmonary vascular congestion. TTE showed LVEF of 65% with mild diastolic dysfunction, no significant valvular dysfunction , no wall motion abnormalities, no PFO. Patient was started on aspirin and statin. Neurology was consulted. Recommended TTE as patient is young and stroke appeared to be embolic or thrombotic. JOYCE was negative for thrombus, valvular abnormalities, left ventricular dysfunction and showed stable Grade I and II atheroma. Patient was developed by speech therapy and passed swallow eval. Occupational therapy recommended discharge to home. Physical therapy recommended home health PT. Patient had hypercoagulable panel ordered and results are pending. MRI shows acute ischemic infarct in the posterior left middle cerebral artery territory without herniation or midline shift. There are no other acute ischemic infarcts seen. Patient has a good appetite, is able to ambulate independently, is progressing back to baseline. She is very for discharge. Patient is adamant she does not want to quit smoking. Patients magnesium was 1.3mg and she was started on mag ox 400mg BID which she will continue. Plan: Follow up neurology. Follow-up with hematology for hypercoaguable workup and cardiology for event monitor. Continue aspirn and statin. - Time Spent with Patient Total time spent providing and/or coordinating discharge services: - Constitutional Vitals: Temp Pulse Resp BP Pulse Ox 97.6 F 82 20 112/81 91 09/16/16 11:08 09/16/16 11:08 09/16/16 11:08 09/16/16 11:08 09/16/16 11:08 General appearance: Present: A&O X 3, pleasant, no acute distress - Head Head exam: Present: atraumatic, normocephalic - Eye Eye exam: Present: PERRL, conjuntiva pink, sclera anicteric Pupils: Present: PERRL - Neck Neck exam general surgery: Present: supple, trachea midline. Absent: lymphadenopathy - Respiratory Respiratory exam: Present: CTAB. Absent: accessory muscle use, rales, rhonchi, wheezes - Cardiovascular Cardiovascular exam: Present: RRR, +S1, +S2. Absent: diastolic murmur, gallop, rubs, systolic murmur - GI/Abdominal GI/Abdominal exam: Present: normal bowel sounds, soft, no peritoneal signs. Absent: distended, tenderness - Extremities Exam Extremities exam: Present: warm, radial pulses palpable and symetrical. Absent : calf tenderness, cyanotic, pedal edema - Neurological Exam Neurological exam: Present: alert, CN II-XII intact, oriented X3, reflexes normal, no focal deficits, strengths equal and symetr throughout. Absent: motor sensory deficit, pronater drift, facial droop, speech deficit - Psychiatric Psychiatric exam: Present: normal affect, normal mood - Skin Skin exam: Present: dry, intact
--- NOTE | 2016-09-16 15:23 | Physician Discharge Referral ---
<Yunior Vivas - Last Filed: 09/16/16 15:21> Home Health/Hosp Referral Info Transfer to: Home Health Attending Provider: Dr. Maddox Provider in Charge Post Discharge: PCP - Diagnosis (1) CVA (cerebral vascular accident) Priority: Primary Status: Acute (2) Hyperlipidemia Priority: Secondary Status: Acute (3) Bipolar disorder Priority: Secondary Status: Acute (4) COPD (chronic obstructive pulmonary disease) Priority: Secondary Status: Acute (5) GERD (gastroesophageal reflux disease) Priority: Secondary Status: Acute (6) Anxiety Priority: Secondary Status: Acute (7) DVT prophylaxis Priority: Secondary Status: Acute - Respiratory Orders Smoking Cessation: Smoking cessation has been advised. For more information, call the [place] Tobacco Quit Line at 7-070-YGOX-NOW. - Diet/Nutrition Diet/Nutrition Orders: Cardiac - Activity Activity Orders: Up ad donna - Services Needed Following services are medically necessary services: Home Health Aide (Patient has followup appointment with cardiology, hematology, and neurology.), Physical Therapy - Transfer Medications Prescriptions: Aspirin 81 mg PO DAILY #30 tab.chew Magnesium Oxide [Mag-Ox] 400 mg PO BID #60 tablet Home Medications: Benztropine [Cogentin] 1 mg PO HS 02/17/15 [History] Cholecalciferol (Vitamin D3) [Vitamin D] 1,000 mg PO DAILY 02/17/15 [History] Diazepam [Valium] 5 mg PO BID 02/17/15 [History] Omeprazole [PriLOSEC] 40 mg PO DAILY 02/17/15 [History] Pravastatin Sodium [Pravachol] 40 mg PO HS 02/17/15 [History] Pregabalin [Lyrica] 100 mg PO TID 02/17/15 [History] Albuterol Sulfate [Proair Hfa] 2 puff IH QID PRN 07/20/16 [History] Budesonide/Formoterol 160/4.5 [Symbicort 160/4.5] 2 puff IH BIDR 07/20/16 [ History] Doxepin HCl 10 mg PO TID 07/20/16 [History] diazePAM [Valium] 2 mg PO BID 07/20/16 [History] lamoTRIgine [Lamotrigine] 200 mg PO QAM 07/20/16 [History] Albuterol Neb [Proventil Neb] 2.5 mg IH TID PRN 09/15/16 [History] Lurasidone HCl [Latuda] 120 mg PO DAILY 09/15/16 [History] Oxycodone HCl 10 mg PO Q6H PRN 09/15/16 [History] Trazodone HCl 200 mg PO HS 09/15/16 [History] rOPINIRole [Requip] 1 mg PO HS 09/15/16 [History] Aspirin 81 mg PO DAILY #30 tab.chew 09/16/16 [Rx] Magnesium Oxide [Mag-Ox] 400 mg PO BID #60 tablet 09/16/16 [Rx] Allergies/Adverse Reactions: Allergies Erythromycin Base Allergy (Verified 09/15/16 16:35) Swelling of Lip/Tongue/Throat hydroxyzine [From Vistaril] Allergy (Verified 09/15/16 16:35) See Comments MUSCLE SPASMS "MESSED ME ALL UP" Penicillins Allergy (Verified 09/15/16 16:35) Swelling of Lip/Tongue/Throat Certification: Further, I certify that my clinical findings support that this patient is homebound (i.e. absences from home require considerable and taxing effort and are for medical reasons or muslim services or infrequently or short duration when for other reasons) because: Homebound Reason: Patient requires assistance of a person or device to safely leave home Attestation: My signature below is to certify that this patient is under my care and that I, or nurse practitioner, or a physician's obstetric assistant working with me, has a face-to -face encounter with this patient. <Ryan Maddox - Last Filed: 09/16/16 17:47> - Diagnosis (1) CVA (cerebral vascular accident) Status: Acute (2) Hyperlipidemia Status: Chronic (3) COPD (chronic obstructive pulmonary disease) Status: Chronic (4) GERD (gastroesophageal reflux disease) Status: Chronic (5) Bipolar disorder Status: Chronic (6) Tobacco abuse Status: Chronic - Respiratory Orders Smoking Cessation: Smoking cessation has been advised. For more information, call the [place] Tobacco Quit Line at 2-661-XDRX-NOW. Certification: Further, I certify that my clinical findings support that this patient is homebound (i.e. absences from home require considerable and taxing effort and are for medical reasons or muslim services or infrequently or short duration when for other reasons) because: Attestation: My signature below is to certify that this patient is under my care and that I, or nurse practitioner, or a physician's obstetric assistant working with me, has a face-to -face encounter with this patient.
--- NOTE | 2016-09-16 15:24 | ECHO - Doppler Report ---
Transesophageal Echocardiogram Name: Candi Spence Date of Study: 09/16/2016 Date: 1960 Ht: 64.0in Medical Record#: [id number] Age: 56 Wt: 168.0lb Gender: Female BSA: 1.82 Order #: [id number] Location: [facility] Room #: 2NE29 Reading Physician: Zulma Ortega DO Trouble Operator: Sae Rondon RDCS Ordering Physician: Yunior Vivas DO Primary Physician: Ceasar Arce MD Indications: Transient Ischemic Attack Impressions: No intracardiac evidence for thrombus. Grade I to II atheroma of the aorta. Medication Given: Time Medication Dose Units Route 11:35 Versed 2 mg IV 11:35 Fentanyl 25 mcg IV 11:40 Versed 2 mg IV 11:45 Versed 1 mg IV 11:45 Fentanyl 25 mcg IV Contrast Type Amount Agitated saline 10 Findings: Study Quality * Technically adequate exam. ECG Findings * Normal sinus rhythm Left Ventricle * Normal size and function. Right Ventricle * The right ventricle was normal in size and systolic function. Left Atrium * Within normal limits. * LA appendage is normal in appearance. * The LA appendage flow velocity is normal. Right Atrium * Within normal limits. Interatrial Septum * No evidence of patent foramen ovale. * No evidence of inter-atrial shunting noted with saline contrast. * The thickening of interatrial septum suggested lipomatous hypertrophy. Aortic Valve * Normal structure and function. * No evidence of an intracardiac vegetation. Mitral Valve * Normal structure and function * There is no mitral valve vegetation. * Trace/trivial mitral regurgitation. Tricuspid Valve * Normal structure and function. * No tricuspid regurgitation. Pulmonic Valve * Not well visualized. * No pulmonic regurgitation. Pulmonary Veins * Normal pulmonary veins. * Normal flow patterns. Pulmonary Artery * Not visualized. Aorta * The aortic root is not dilated. * There is nonmobile Grade I to II atheroma of the descending thoracic aorta. Procedure Summary: After explaining the risks, benefits, and alternatives of the procedure to the patient in detail and answering all questions to satisfaction, an informed consent was obtained in writing. The patient was NPO for the six hours prior to the procedure. The patient denied dysphagia, odynophagia, and loose teeth (dentures removed). The patient was monitored with periodic automated blood pressures and continuous pulse oximetry and telemetry. Continuous oxygen was administered by [place]. The patient was placed in the full upright position and the posterior oropharynx was anesthetized. IV sedation was administered. Sedation was administered. Then, a well-lubricated anteflexed multipoint intraesophageal echocardiographic probe was inserted into the midline posterior oropharynx. Gentle pressure was applied as the patient swallowed and the esophagus was intubated without difficulty. The scope was advanced to the mid esophagus without encountering resistance. Images were obtained from the mid and upper esophagus. Images from the gastric globe were not obtained. The intra-atrial septum was assessed by color-flow Doppler and agitated saline. The scope was then rotated approximately 180 degrees and withdrawn, visualizing the length of the aorta. The scope was then slowly withdrawn as the patient was continually suctioned. The patient tolerated the procedure well. Complications: None History: Hypertension Hypercholesteremia History of Smoking Years 45 Packs 1 Previous Echo09/15/2016 BP 112 / 81 Updated by Zulma Ortega on 09/16/2016 3:15:30 PM electronically signed on 09/16/2016 3:18:45 PM with status of [employer] [place]: 1=Normal, 2=Hypokinesis, 3=Akinesis, 4=Dyskinesis, 5=Aneurysmal, 6=Hyperkinetic, X=Not Visualized (Blank)=Missing
[2016-09-16 15:59] LABS: Prothrombin Time 11.2 Seconds (9.4-12.1)
[2016-09-16 16:01] LABS: Activated Partial Thrombo Time 32.2 Seconds (26.0-36.0)
--- NOTE | 2016-09-16 17:35 | Electrocardiograph Report ---
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
--- NOTE | 2016-09-16 17:42 | Electrocardiograph Report ---
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
[2016-09-16] MEDS: traZODone 50 MG TABLET PO SCH (20:20)
[2016-09-16] MEDS: rOPINIRole 1 MG TABLET PO SCH (20:21)
[2016-09-16 20:27] LABS: Plt Function ADP Closure TIME 58 Seconds (65-109); Plt Function Epi Closure Time 94 Seconds (87-175)
[2016-09-17] MEDS: *HR* Heparin 5,000 UNIT/ML VIAL SQ SCH (05:07)
[2016-09-17 07:32] VITALS: BP 126/86
--- NOTE | 2016-09-17 08:06 | Internal Med Progress Note ---
<Yunior Vivas - Last Filed: 09/17/16 13:50> Date of Encounter: 09/16/16 Time of Encounter: 13:50 - Assessment and plan (1) CVA (cerebral vascular accident) Status: Acute Qualifiers: CVA mechanism: embolism Precerebral and cerebral artery: middle cerebral artery Laterality of affected vessel: left Qualified Code(s): I63.412 - Cerebral infarction due to embolism of left middle cerebral artery (2) Hyperlipidemia Status: Chronic Qualifiers: Hyperlipidemia type: mixed hyperlipidemia Qualified Code(s): E78.2 - Mixed hyperlipidemia (3) Bipolar disorder Status: Chronic Qualifiers: Active/Remission status: remission status unspecified Qualified Code(s): F31.9 - Bipolar disorder, unspecified (4) COPD (chronic obstructive pulmonary disease) Status: Chronic Qualifiers: COPD type: unspecified COPD Qualified Code(s): J44.9 - Chronic obstructive pulmonary disease, unspecified (5) GERD (gastroesophageal reflux disease) Status: Chronic Qualifiers: Esophagitis presence: esophagitis presence not specified Qualified Code(s) : K21.9 - Gastro-esophageal reflux disease without esophagitis (6) Anxiety Status: Acute (7) DVT prophylaxis Status: Acute (8) Magnesium deficiency Status: Acute - Constitutional Vitals: Temp Pulse Resp BP Pulse Ox 98.2 F 78 16 126/86 98 09/17/16 07:28 09/17/16 07:28 09/17/16 07:28 09/17/16 07:28 09/17/16 07:28 General appearance: Present: A&O X 3, pleasant, no acute distress Internal Medicine: Result - Labs CBC & Chem 7: 09/16/16 04:59 09/16/16 04:59 - ABG Interpretation ABG results: PT/INR, D-dimer PT 11.2 Seconds (9.4-12.1) 09/16/16 15:28 D-Dimer 664 ng/mLFEU (0-500) H 09/16/16 15:28 - Stroke Contraindication Not Initiating IV-Tpa: Medical contraindication (Pt presented outside of treatment window.) Consult Discharge Plan - Plan Instructions: Aspirin (By mouth), Magnesium Oxide (By mouth), Chronic Obstructive Pulmonary Disease (DC), Ischemic Stroke (DC), Ischemic Stroke (GEN) Additional Instructions: If you have recurrent slurred speech, facial droop, numbness on one side, weakness these are signs of stroke please come to ER immediately Take aspirin and pravastatin every day. Follow up with cardiology, hematology, and neurology appointments. Referrals: Ceasar Arce MD [Primary Care Provider] - Daniel Tobias MD [Partnered Physician] - (patient is 56y/o female who presented to hospital for stroke. She had a hypercoaguable work up with results pending. ) Yousif Mcdonnell MD [Partnered Physician] - (hospital stroke follow up) Zulma Ortega DO [Partnered Physician] - (Patient had stroke. JOYCE negative for thrombus, valvular abnormalaties. Patient will need event recorder. ) Prescriptions: Aspirin 81 mg PO DAILY #30 tab.chew Magnesium Oxide [Mag-Ox] 400 mg PO BID #60 tablet <Ryan Maddox - Last Filed: 09/17/16 17:57> Date of Encounter: 09/17/16 - Assessment and plan (1) CVA (cerebral vascular accident) Status: Acute Qualifiers: CVA mechanism: embolism Precerebral and cerebral artery: middle cerebral artery Laterality of affected vessel: left Qualified Code(s): I63.412 - Cerebral infarction due to embolism of left middle cerebral artery (2) Hyperlipidemia Status: Chronic Qualifiers: Hyperlipidemia type: mixed hyperlipidemia Qualified Code(s): E78.2 - Mixed hyperlipidemia (3) COPD (chronic obstructive pulmonary disease) Status: Chronic Qualifiers: COPD type: unspecified COPD Qualified Code(s): J44.9 - Chronic obstructive pulmonary disease, unspecified (4) GERD (gastroesophageal reflux disease) Status: Chronic Qualifiers: Esophagitis presence: esophagitis presence not specified Qualified Code(s) : K21.9 - Gastro-esophageal reflux disease without esophagitis (5) Bipolar disorder Status: Chronic Qualifiers: Active/Remission status: remission status unspecified Qualified Code(s): F31.9 - Bipolar disorder, unspecified (6) Tobacco abuse Status: Chronic - Constitutional Vitals: Temp Pulse Resp BP Pulse Ox 98.2 F 78 18 126/86 98 09/17/16 08:00 09/17/16 08:00 09/17/16 08:14 09/17/16 08:00 09/17/16 09:25 Internal Medicine: Result - Labs CBC & Chem 7: 09/16/16 04:59 09/16/16 04:59 - ABG Interpretation ABG results: PT/INR, D-dimer PT 11.2 Seconds (9.4-12.1) 09/16/16 15:28 D-Dimer 664 ng/mLFEU (0-500) H 09/16/16 15:28 - Attending Attestation I examined this patient and my medical decision-making was reviewed with the Resident Physician on 09/17/16. I agree with the documented findings, disposition and treatment plan as described except to the extent set forth below. Ms. Spenec has been admitted for acute CVA and is moderate risk due to potential for worsening neurologic status. Ms. Spence was unable to get home last night. She feels about the same overall. No fever. Vitals stable Exam alert. Comfortable Heart reg No wheeze Plan D/C today Follow up with neuro and PCP.
[2016-09-17] MEDS: Budesonide/Formoterol 160/4.5 MDI IH SCH (08:14)
[2016-09-17] MEDS: Nicotine 21 MG PATCH.TD24 TD SCH (08:15)
[2016-09-17] MEDS: lamoTRIgine 100 MG TABLET PO SCH (08:15)
[2016-09-17] MEDS: Aspirin 81 MG TAB.CHEW PO SCH (08:15)
[2016-09-17] MEDS: Magnesium Oxide 400 MG TABLET PO SCH (08:16)
[2016-09-17] MEDS: diazePAM 5 MG TABLET PO SCH (08:16)
[2016-09-17] MEDS: Cholecalciferol (D-3) 1,000 UNIT TABLET PO SCH (08:16)
[2016-09-17] MEDS: Pregabalin 50 MG CAPSULE PO SCH (08:16)
[2016-09-18 18:23] LABS: APTT (LE Anticoag) 47 sec (32-48); Diluted Russell Viper Venom 38 sec (33-44); PT (LE-Anticoag) 13.1 sec (12.0-15.5)
[2016-09-19 07:54] LABS: Homocysteine 12 umol/L (<=10); Protein C, Functional 130 % (83-168); Protein S Antigen, Total 122 % (63-126); Protein S, Functional 78 % (57-131)
[2016-09-19 08:04] LABS: Factor V Leiden Normal (Normal); Prothrombin G20210A Mutation Normal (Normal)
[2016-09-20 10:50] LABS: Antithrombin III, Activity 63 % (76-128)
== END 2016-09-17 11:55 | disposition home health service (06) | DRG 45 ==
LOC: 2NENU 16:33 → EMEROO 16:33 → 2NENU 18:59
PROVIDERS: ADMIT Hospitalist; ATTEND Internal Medicine

== ENCOUNTER 2016-10-08 14:10 | Inpatient (IN) ==
[2016-10-08 15:03] LABS: Basophils % 0.1 %; Eosinophils # 0.2 K/mcL (0.0-0.6); Eosinophils % 1.5 %; Hematocrit 34.5 % (35.3-44.9); Hemoglobin 11.2 g/dL (11.5-15.4); Immature Granulocytes % 0.7 % (0-4); Lymphocytes # 2.7 K/mcL (0.6-4.6); Mean Corpuscular HGB Conc 32.5 g/dL (31.6-35.5); Mean Corpuscular Hemoglobin 27.8 pg (28.0-33.3); Mean Corpuscular Volume 85.6 fL (83.0-100.0); Mean Platelet Volume 10.6 fL (9.4-12.4); Monocytes # 1.1 K/mcL (0.0-1.3); Neutrophils # 11.9 K/mcL (1.6-8.9); Platelet Count 451 K/mcL (140-400); Red Blood Count 4.03 M/mcL (3.82-4.97); Red Cell Distribution Width 15.9 % (11.5-14.5); Segmented Neutrophils % 73.7 %
[2016-10-08 15:08] LABS: INR 1.1; Prothrombin Time 12.3 Seconds (9.4-12.1)
[2016-10-08 15:11] LABS: Activated Partial Thrombo Time 31.5 Seconds (26.0-36.0)
[2016-10-08 15:18] LABS: Alanine Aminotransferase 9 Units/L (0-55); Albumin 2.6 g/dL (3.5-5.0); Alkaline Phosphatase 119 Units/L (38-126); Aspartate Amino Transferase 15 Units/L (5-34); BUN/Creatinine Ratio 8 (6-26); Bilirubin,Direct 0.2 mg/dL (0.0-0.5); Bilirubin,Indirect 0.1 mg/dL (0.0-1.2); Bilirubin,Total 0.3 mg/dL (0.2-1.2); Blood Urea Nitrogen 7 mg/dL (7-20); Calcium 8.2 mg/dL (8.6-10.8); Carbon Dioxide 26 mEq/L (19-29); Chloride 110 mEq/L (98-109); Ethanol < 10 mg/dL (0-10); Globulin 2.6 g/dL (2.4-3.5); Glucose 93 mg/dL (70-99); Osmolality,Calculated 294 (280-300); Potassium 3.3 mEq/L (3.5-4.5); Sodium 143 mEq/L (136-145); Total Protein 5.2 g/dL (6.0-8.3); eGFR For African Americans > 60 (> 60); eGFR For Non-African Americans > 60 (> 60)
--- NOTE | 2016-10-08 15:52 | Emergency Department Note ---
Disposition Clinical Impression: Altered mental status Qualifiers: Altered mental status type: unspecified Qualified Code(s): R41.82 - Altered mental status, unspecified Pneumonia Qualifiers: Pneumonia type: due to unspecified organism Laterality: left Lung location: lower lobe of lung Qualified Code(s): J18.1 - Lobar pneumonia, unspecified organism Disposition: Admitted As Inpatient Condition: Fair Time of Disposition: 17:02 General Adult HPI - General Chief complaint: ED Altered Mental Status Stated complaint: Confusion Time Seen by Provider: 10/08/16 14:12 Source: patient, EMS Mode of arrival: EMS Limitations: no limitations Nursing Notes Reviewed: Yes Vital Signs Reviewed: Yes - History of Present Illness HPI Narrative: 56 year old female with PMHx of CVA, HLD, Bipolar disorder, COPD, GERD, anxiety. patient was recently in ED last night for accidental drug overdose. she had accidentally taken all her evening meds twice. she was monitored in the ED, and then discharged home with instructions to follow up with PCP. Patient was brought back to the ED today by squad. she was brought from home. Patient is an extremely poor historian and cannot give accurate history. She seems to be confused about what is being asked of her, and her story changes multiple times when asked the same question. Furthermore, there are no family members in the room to help with the patient's history. Patient states she has had multiple falls at home due to dizziness. She denies chest pain, denies nausea, vomiting. she reports about 4 episodes of diarrhea today. she denies fever and chills. she denies any back pain. Pain Scale: 0 - Related Data Home Medications Medication Instructions Recorded Confirmed Benztropine [Cogentin] 1 mg PO HS 02/17/15 10/08/16 Cholecalciferol (Vitamin D3) 1,000 mg PO DAILY 02/17/15 10/08/16 [Vitamin D] Diazepam [Valium] 7 mg PO BID 02/17/15 10/08/16 Omeprazole [PriLOSEC] 40 mg PO DAILY 02/17/15 10/08/16 Pravastatin Sodium [Pravachol] 40 mg PO HS 02/17/15 10/08/16 Pregabalin [Lyrica] 100 mg PO TID 02/17/15 10/08/16 Albuterol Sulfate [Proair Hfa] 2 puff IH QID PRN 03/22/17 06/10/17 Budesonide/Formoterol 160/4.5 2 puff IH BIDR 07/20/16 10/08/16 [Symbicort 160/4.5] Doxepin HCl 10 mg PO TID 07/20/16 10/08/16 lamoTRIgine [Lamotrigine] 200 mg PO QAM 07/20/16 10/08/16 Albuterol Neb [Proventil Neb] 2.5 mg IH TID PRN 09/15/16 10/08/16 Lurasidone HCl [Latuda] 120 mg PO DAILY 09/15/16 10/08/16 Oxycodone HCl 10 mg PO Q6H PRN 09/15/16 10/08/16 Trazodone HCl 200 mg PO HS 09/15/16 10/08/16 rOPINIRole [Requip] 1 mg PO DAILY 09/15/16 10/08/16 Allergies Allergy/AdvReac Type Severity Reaction Status Date / Time Erythromycin Base Allergy Swelling Verified 10/08/16 14:14 of Lip/Tongue/Throat hydroxyzine [From Vistaril] Allergy See Verified 10/08/16 14:14 Comments Penicillins Allergy Swelling Verified 10/08/16 14:14 of Lip/Tongue/Throat All systems ED: reviewed and negative except as stated. Past Medical History - Past Medical History Medical history: Reports: COPD, GERD, hyperlipidemia, myocardial infarction, seizures, thyroid disease Surgical history: Reports: , cholecystectomy, hysterectomy, other Psychiatric history: Reports: anxiety, bipolar, depression NIGHT SUPERVISOR history: Reports: no NIGHT SUPERVISOR history - Social History Smoking Status: Current every day smoker Smokeless Tobacco Status: No Alcohol use: Reports: none Drug use: Reports: marijuana Physical Exam - General Limitations: language barrier, altered mental status General appearance: in no apparent distress - Head Head exam: other (some bruising noted along right jawline. ) - Eye Eye exam: Present: normal appearance - Neck Neck exam: Present: normal inspection, trachea midline - Chest Chest inspection: Present: normal inspection - Respiratory Respiratory exam: Present: other (rales present bilaterally. ) - Cardiovascular Cardiovascular exam: Present: regular rate, +S1, +S2 - Abdominal Exam Abdominal exam: Present: soft, Non-Tender, normal bowel sounds - Extremities Exam Extremities exam: Present: other (multiple bruises and cuts all over body from falls. has significant bruising on both knees bilaterally. ) - Expanded Lower Extremity Exam Knee exam: Present: swelling, laceration, erythema - Back Exam Back exam: Present: normal inspection - Neurological Exam Neurological exam: Present: other (alert and oriented x2. ) - Psychiatric Psychiatric exam: Present: depressed Course Vital Signs Temperature 98.4 F 10/08/16 14:23 Pulse Rate 102 10/08/16 14:23 Respiratory Rate 22 10/08/16 14:23 Blood Pressure 122/97 10/08/16 14:23 O2 Sat by Pulse Oximetry 87 10/08/16 14:23 Temperature 98.4 F 10/08/16 14:23 Pulse Rate 91 10/08/16 17:30 Respiratory Rate 20 10/08/16 18:25 Blood Pressure 119/90 10/08/16 18:25 O2 Sat by Pulse Oximetry 99 10/08/16 17:30 Oxygen Delivery Oxygen Delivery Nasal Cannula Medical Decision Making - MDM Narrative Medical decision making narrative: labs showed Hg 11.2, baseline about 12, WBC 16.2, platelet count elevated, elevated neutrophil count of 11.9. coags unremarkable. CT head is pending. BMP showed potassium of 3.3 (replaced), troponin was elevated at 0.09. CXR showed left lower lobe consolidation, concern for pneumonia. patient received one dose of vancomycin, aztreonam, and levaquin. urinalysis showed many squamous epithelial cells with positive leukocyte esterase and few bacteria, urine culture pending. EKG showed no significant findings. UDS positive for benzodiazepines and marijuana. Patient is requiring 4L oxygen, and at baseline she wears 3L oxygen at home. Because of her altered mental status, lack of ability to give good history, elevated WBC, wheezing, patient will require admission for further workup. She was accepted for admission by Dr. Amin, hospitalist. - Medical Records Medical records reviewed: Yes I reviewed the patient's medical records. - Lab Data Lab results reviewed: Yes I reviewed the patient's lab results. Result diagrams: 10/08/16 14:56 10/08/16 14:56 Lab Results 10/08/16 10/08/16 10/08/16 Range/Units 14:15 14:56 14:56 WBC 16.1 H (4.3-11.1) K/mcL RBC 4.03 (3.82-4.97) M/mcL Hgb 11.2 L (11.5-15.4) g/dL Hct 34.5 L (35.3-44.9) % MCV 85.6 (83.0-100.0) fL MCH 27.8 L (28.0-33.3) pg MCHC 32.5 (31.6-35.5) g/dL RDW 15.9 H (11.5-14.5) % Plt Count 451 H (140-400) K/mcL MPV 10.6 (9.4-12.4) fL Immature Gran % 0.7 (0-4) % Seg Neutrophils % 73.7 % Lymphocytes % 17.0 % Monocytes % 7.0 % Eosinophils % 1.5 % Basophils % 0.1 % Neutrophils # 11.9 H (1.6-8.9) K/mcL Lymphocytes # 2.7 (0.6-4.6) K/mcL Monocytes # 1.1 (0.0-1.3) K/mcL Eosinophils # 0.2 (0.0-0.6) K/mcL Basophils # 0.0 (0.0-0.2) K/mcL PT 12.3 H (9.4-12.1) Seconds INR 1.1 APTT 31.5 (26.0-36.0) Seconds Sodium (136-145) mEq/L Potassium (3.5-4.5) mEq/L Chloride (98-109) mEq/L Carbon Dioxide (19-29) mEq/L BUN (7-20) mg/dL Creatinine (0.57-1.11) mg/dL Est GFR ( Amer) (> 60) Est GFR (Non-Af Amer) (> 60) BUN/Creatinine Ratio (6-26) Glucose (70-99) mg/dL POC Glucose 103 H (58-89) Calculated Osmolality (280-300) Calcium (8.6-10.8) mg/dL Total Bilirubin (0.2-1.2) mg/dL Direct Bilirubin (0.0-0.5) mg/dL Indirect Bilirubin (0.0-1.2) mg/dL AST (5-34) Units/L ALT (0-55) Units/L Alkaline Phosphatase (38-126) Units/L Troponin I (0-0.03) ng/mL Serum Total Protein (6.0-8.3) g/dL Albumin (3.5-5.0) g/dL Globulin (2.4-3.5) g/dL Albumin/Globulin Ratio (1.1-2.2) Urine Color (Yellow) Urine Clarity (Clear) Urine pH (5.0-8.0) pH Units Ur Specific [place] (1.010-1.025) Urine Protein (Neg-Trace) mg/dL Urine Glucose (UA) (Normal) mg/dL Urine Ketones (Negative) mg/dL Urine Blood (Negative) Urine Nitrite (Negative) Urine Bilirubin (Negative) Urine Urobilinogen (Normal) mg/dL Ur Leukocyte Esterase (Negative) Urine Microscopic RBC (0-3) per hpf Urine Microscopic WBC (0-3) per hpf Ur Squamous Epith Cells (None-Few) per lpf Urine Bacteria (None-Few) per hpf Hyaline Casts (None-Few) per lpf Ur Culture Indicated? (NO) Urine Opiates Screen (Mjonsi=863) ng/mL Ur Barbiturates Screen (Zfpssq=748) ng/mL Ur Phencyclidine Scrn (Cutoff=25) ng/mL Ur Amphetamines Screen (Fvczbx=0169) ng/mL U Benzodiazepines Scrn (Tutulp=600) ng/mL Urine Cocaine Screen (Cutoff= 300) ng/mL U Marijuana (THC) Screen (Cutoff = 50) ng/mL Ethyl Alcohol (0-10) mg/dL 10/08/16 10/08/16 10/08/16 Range/Units 14:56 14:56 15:30 WBC (4.3-11.1) K/mcL RBC (3.82-4.97) M/mcL Hgb (11.5-15.4) g/dL Hct (35.3-44.9) % MCV (83.0-100.0) fL MCH (28.0-33.3) pg MCHC (31.6-35.5) g/dL RDW (11.5-14.5) % Plt Count (140-400) K/mcL MPV (9.4-12.4) fL Immature Gran % (0-4) % Seg Neutrophils % % Lymphocytes % % Monocytes % % Eosinophils % % Basophils % % Neutrophils # (1.6-8.9) K/mcL Lymphocytes # (0.6-4.6) K/mcL Monocytes # (0.0-1.3) K/mcL Eosinophils # (0.0-0.6) K/mcL Basophils # (0.0-0.2) K/mcL PT (9.4-12.1) Seconds INR APTT (26.0-36.0) Seconds Sodium 143 (136-145) mEq/L Potassium 3.3 L (3.5-4.5) mEq/L Chloride 110 H (98-109) mEq/L Carbon Dioxide 26 (19-29) mEq/L BUN 7 (7-20) mg/dL Creatinine 0.84 (0.57-1.11) mg/dL Est GFR ( Amer) > 60 (> 60) Est GFR (Non-Af Amer) > 60 (> 60) BUN/Creatinine Ratio 8 (6-26) Glucose 93 (70-99) mg/dL POC Glucose (58-89) Calculated Osmolality 294 (280-300) Calcium 8.2 L (8.6-10.8) mg/dL Total Bilirubin 0.3 (0.2-1.2) mg/dL Direct Bilirubin 0.2 (0.0-0.5) mg/dL Indirect Bilirubin 0.1 (0.0-1.2) mg/dL AST 15 (5-34) Units/L ALT 9 (0-55) Units/L Alkaline Phosphatase 119 (38-126) Units/L Troponin I 0.09 H* (0-0.03) ng/mL Serum Total Protein 5.2 L (6.0-8.3) g/dL Albumin 2.6 L (3.5-5.0) g/dL Globulin 2.6 (2.4-3.5) g/dL Albumin/Globulin Ratio 1.0 L (1.1-2.2) Urine Color Yellow (Yellow) Urine Clarity Cloudy A (Clear) Urine pH 6.0 (5.0-8.0) pH Units Ur Specific [place] 1.009 L (1.010-1.025) Urine Protein Negative (Neg-Trace) mg/dL Urine Glucose (UA) Normal (Normal) mg/dL Urine Ketones Negative (Negative) mg/dL Urine Blood Negative (Negative) Urine Nitrite Negative (Negative) Urine Bilirubin Negative (Negative) Urine Urobilinogen Normal (Normal) mg/dL Ur Leukocyte Esterase Trace H (Negative) Urine Microscopic RBC 0-3 (0-3) per hpf Urine Microscopic WBC 3-5 H (0-3) per hpf Ur Squamous Epith Cells Many H (None-Few) per lpf Urine Bacteria Few (None-Few) per hpf Hyaline Casts None Seen (None-Few) per lpf Ur Culture Indicated? YES A (NO) Urine Opiates Screen (Zprszf=159) ng/mL Ur Barbiturates Screen (Epvmfc=622) ng/mL Ur Phencyclidine Scrn (Cutoff=25) ng/mL Ur Amphetamines Screen (Ktgrcj=7744) ng/mL U Benzodiazepines Scrn (Fckspk=230) ng/mL Urine Cocaine Screen (Cutoff= 300) ng/mL U Marijuana (THC) Screen (Cutoff = 50) ng/mL Ethyl Alcohol < 10 (0-10) mg/dL 10/08/16 Range/Units 16:12 WBC (4.3-11.1) K/mcL RBC (3.82-4.97) M/mcL Hgb (11.5-15.4) g/dL Hct (35.3-44.9) % MCV (83.0-100.0) fL MCH (28.0-33.3) pg MCHC (31.6-35.5) g/dL RDW (11.5-14.5) % Plt Count (140-400) K/mcL MPV (9.4-12.4) fL Immature Gran % (0-4) % Seg Neutrophils % % Lymphocytes % % Monocytes % % Eosinophils % % Basophils % % Neutrophils # (1.6-8.9) K/mcL Lymphocytes # (0.6-4.6) K/mcL Monocytes # (0.0-1.3) K/mcL Eosinophils # (0.0-0.6) K/mcL Basophils # (0.0-0.2) K/mcL PT (9.4-12.1) Seconds INR APTT (26.0-36.0) Seconds Sodium (136-145) mEq/L Potassium (3.5-4.5) mEq/L Chloride (98-109) mEq/L Carbon Dioxide (19-29) mEq/L BUN (7-20) mg/dL Creatinine (0.57-1.11) mg/dL Est GFR ( Amer) (> 60) Est GFR (Non-Af Amer) (> 60) BUN/Creatinine Ratio (6-26) Glucose (70-99) mg/dL POC Glucose (58-89) Calculated Osmolality (280-300) Calcium (8.6-10.8) mg/dL Total Bilirubin (0.2-1.2) mg/dL Direct Bilirubin (0.0-0.5) mg/dL Indirect Bilirubin (0.0-1.2) mg/dL AST (5-34) Units/L ALT (0-55) Units/L Alkaline Phosphatase (38-126) Units/L Troponin I (0-0.03) ng/mL Serum Total Protein (6.0-8.3) g/dL Albumin (3.5-5.0) g/dL Globulin (2.4-3.5) g/dL Albumin/Globulin Ratio (1.1-2.2) Urine Color (Yellow) Urine Clarity (Clear) Urine pH (5.0-8.0) pH Units Ur Specific [place] (1.010-1.025) Urine Protein (Neg-Trace) mg/dL Urine Glucose (UA) (Normal) mg/dL Urine Ketones (Negative) mg/dL Urine Blood (Negative) Urine Nitrite (Negative) Urine Bilirubin (Negative) Urine Urobilinogen (Normal) mg/dL Ur Leukocyte Esterase (Negative) Urine Microscopic RBC (0-3) per hpf Urine Microscopic WBC (0-3) per hpf Ur Squamous Epith Cells (None-Few) per lpf Urine Bacteria (None-Few) per hpf Hyaline Casts (None-Few) per lpf Ur Culture Indicated? (NO) Urine Opiates Screen Negative (Nfglnb=849) ng/mL Ur Barbiturates Screen Negative (Snugcs=512) ng/mL Ur Phencyclidine Scrn Negative (Cutoff=25) ng/mL Ur Amphetamines Screen Negative (Aqvptj=0779) ng/mL U Benzodiazepines Scrn Positive H (Yzmrem=083) ng/mL Urine Cocaine Screen Negative (Cutoff= 300) ng/mL U Marijuana (THC) Screen Positive H (Cutoff = 50) ng/mL Ethyl Alcohol (0-10) mg/dL - Radiology Data Radiology results reviewed: Yes I reviewed the patient's radiology results. - EKG Data EKG #1 EKG results narrative: sinus tachycardia rate 106, NJ interval 145 QRS duration 75 Qt/Qtc 322/384, P-R- T axis 1 8 50. normal axis. No acute ST changes noted. EKG shows normal: sinus rhythm Attestation Statement - Attestation Attestation: I, Bahman Kelly, examined this patient and my medical decision-making was reviewed with the WATER TENDER/PA/Advanced Practice Nurse/Resident Physician. I agree with the documented findings, disposition and treatment plan as described except to the extent set forth below. 56-year-old female brought in by EMS for altered mental status. Upon EMS arrival the patient was not wearing oxygen and was hypoxic. Patient was seen last night for an accidental overdose of her "nighttime medication" patient was observed for multiple hours, he was hemodynamically stable and was discharged. Today the patient is hypoxic, tachycardic and altered. Patient has a chest x- ray which shows a possible left basilar infiltrate concerning for pneumonia. Laboratory evaluation revealed elevated troponin, EKG showed sinus tachycardia with a rate of 106 without evidence of STEMI. Patient was admitted multiple times in the past few months and will be treated with healthcare associated pneumonia antibiotics and admitted to the hospital for further care and evaluation.
[2016-10-08] MEDS ORDERED: Potassium Chloride Elixir 20 MEQ/15 ML UDC PO ONE (16:05)
[2016-10-08] MEDS ORDERED: Vancomycin 1,000 MG in D5% in Water 250 ML IVPB ONE (16:13)
[2016-10-08] MEDS ORDERED: Levofloxacin 750 MG/150 ML 750 MG/150 ML BAG IVPB ONE (16:13)
[2016-10-08] MEDS ORDERED: Aztreonam 2,000 MG in D5% in Water (Mini-Bag+) 100 ML IVPB ONE (16:15)
[2016-10-08 16:18] LABS: Bilirubin,Urine Negative (Negative); Blood,Urine Negative (Negative); Clarity,Urine Cloudy (Clear); Color,Urine Yellow (Yellow); Glucose,Urine (UA) Normal (Normal); Ketones,Urine Negative (Negative); Leukocyte Esterase,Urine Trace (Negative); Nitrite,Urine Negative (Negative); Protein,Urine Negative (Neg-Trace); Specific Gravity,Urine 1.009 (1.010-1.025); Urobilinogen,Urine Normal (Normal)
[2016-10-08 16:19] LABS: Bacteria,Urine Few per hpf (None-Few); Hyaline Casts,Urine None Seen per lpf (None-Few); RBC,Urine 0-3 per hpf (0-3); Squamous Epithelial Cell,Urine Many per lpf (None-Few)
[2016-10-08] MEDS ORDERED: Aspirin Enteric Coated 81 MG Tablet PO ONE (16:24)
[2016-10-08 16:26] LABS: Amphetamine Screen,Urine Negative ng/mL (Cutoff=1000); Barbiturate Screen,Urine Negative ng/mL (Cutoff=200); Benzodiazepines Screen,Urine Positive ng/mL (Cutoff=200); Cannabinoid Screen,Urine Positive ng/mL (Cutoff = 50); Cocaine Screen,Urine Negative ng/mL (Cutoff= 300); Opiate Screen,Urine Negative ng/mL (Cutoff=300); Phencyclidine Screen,Urine Negative ng/mL (Cutoff=25)
[2016-10-08] MEDS ORDERED: Ondansetron 4 MG/2 ML VIAL IVP PRN (17:19)
[2016-10-08] MEDS ORDERED: Acetaminophen 325 MG TABLET PO PRN (17:19)
[2016-10-08] MEDS ORDERED: *HR* HYDROcodone/Acet 5/325 mg TABLET PO PRN (17:19)
[2016-10-08] MEDS ORDERED: Naloxone 0.4 MG/ML INJ IVP PRN (17:19)
--- NOTE | 2016-10-08 17:30 | Internal Med History&Physical ---
Date of Encounter: 10/08/16 Time of Encounter: 17:00 Assessment and Plan (1) Acute metabolic encephalopathy Current visit: Yes Status: Acute multifactorial due to medication overdose, marihuana use and infection. treat underlying etiology. (2) Pneumonia Current visit: Yes Status: Acute Likely aspiration from medication overdose and changes in mental status. CXR left basilar opacity. IV levofloxacin. Qualifiers: Pneumonia type: due to unspecified organism Laterality: left Lung location: lower lobe of lung Qualified Code(s): J18.1 - Lobar pneumonia, unspecified organism (3) COPD (chronic obstructive pulmonary disease) Current visit: Yes Status: Chronic nebs q4hr. symbicort. not in acute exacerbation. Qualifiers: COPD type: unspecified COPD Qualified Code(s): J44.9 - Chronic obstructive pulmonary disease, unspecified (4) Chronic respiratory failure Current visit: Yes Status: Chronic Oxygen at 3L NC at home. Qualifiers: Respiratory failure complication: hypoxia Qualified Code(s): J96.11 - Chronic respiratory failure with hypoxia (5) Polysubstance abuse Current visit: Yes Status: Chronic (6) CVA (cerebral vascular accident) Current visit: Yes Status: Chronic recent CVA in August 2016. continue aspirin. Qualifiers: CVA mechanism: embolism Precerebral and cerebral artery: middle cerebral artery Laterality of affected vessel: left Qualified Code(s): I63.412 - Cerebral infarction due to embolism of left middle cerebral artery (7) Bipolar disorder Current visit: No Status: Chronic resume home meds. Qualifiers: Active/Remission status: remission status unspecified Qualified Code(s): F31.9 - Bipolar disorder, unspecified (8) Tobacco abuse Current visit: No Status: Chronic Internal Medicine - H&P: HPI Chief complaint: changes in mental status this morning Admitted From: Home History of present illness: Ms. Spence is a 56 year old female with past medical history of COPD oxygen dependant at 3L NC, recent CVA in August, bipolar disorder and tobacco user who presented to our ED yesterday evening after being treated for medication overdose. Patient took twice her medications including valium, cogentin, lyrica and doxepin. Patient is a poor historian but she reports that she was very confused at home and kept falling so her roommate called EMS. In our ED, she was hypoxic SaO2 87% on 4L NC. She received vancomycin, levofloxacin, aztreonam and aspirin. Patient is positive for marihuana and BZD in urine drug screen, she states that she smoked marihuana with friends this weekend. positive chronic productive cough. She denies any chest pain, shortness of breath, hemoptysis, headache, fever. she has multiple bruises on her knees and elbows with breaks on her skin after falling multiple times at home. She is 96% at 3L NC. Past Med Surg Social Fam HX - Past Medical History Medical history: COPD, GERD, hyperlipidemia, myocardial infarction, seizures, thyroid disease Psychiatric history: anxiety, bipolar, depression - Past Surgical History Surgical History: , cholecystectomy, hysterectomy, other - Social History Smoking Status: Current every day smoker Smokeless Tobacco Status: No Alcohol use: none Drug use: marijuana - Family History Mother Hx Family Cardiac Disorders: Yes Internal Medicine - H&P: Meds Benztropine [Cogentin] 1 mg PO HS 02/17/15 [History] Cholecalciferol (Vitamin D3) [Vitamin D] 1,000 mg PO DAILY 02/17/15 [History] Diazepam [Valium] 7 mg PO BID 02/17/15 [History] Omeprazole [PriLOSEC] 40 mg PO DAILY 02/17/15 [History] Pravastatin Sodium [Pravachol] 40 mg PO HS 02/17/15 [History] Pregabalin [Lyrica] 100 mg PO TID 02/17/15 [History] Albuterol Sulfate [Proair Hfa] 2 puff IH QID PRN 07/20/16 [History] Budesonide/Formoterol 160/4.5 [Symbicort 160/4.5] 2 puff IH BIDR 07/20/16 [ History] Doxepin HCl 10 mg PO TID 07/20/16 [History] lamoTRIgine [Lamotrigine] 200 mg PO QAM 07/20/16 [History] Albuterol Neb [Proventil Neb] 2.5 mg IH TID PRN 09/15/16 [History] Lurasidone HCl [Latuda] 120 mg PO DAILY 09/15/16 [History] Oxycodone HCl 10 mg PO Q6H PRN 09/15/16 [History] Trazodone HCl 200 mg PO HS 09/15/16 [History] rOPINIRole [Requip] 1 mg PO DAILY 09/15/16 [History] Allergies Erythromycin Base Allergy (Verified 10/08/16 14:14) Swelling of Lip/Tongue/Throat hydroxyzine [From Vistaril] Allergy (Verified 10/08/16 14:14) See Comments MUSCLE SPASMS "MESSED ME ALL UP" Penicillins Allergy (Verified 10/08/16 14:14) Swelling of Lip/Tongue/Throat All Systems PM: A 10-system review of systems was performed and is negative for pertinent findings except as documented above in the HPI. - Constitutional Vitals: Temp Pulse Resp BP Pulse Ox 98.4 F 99 18 122/97 87 10/08/16 14:23 10/08/16 14:27 10/08/16 14:27 10/08/16 14:27 10/08/16 14:29 General appearance: Present: cooperative, A&O X 3, pleasant, no acute distress, answers questions appropriately - Neck Neck exam general surgery: Present: supple, trachea midline. Absent: lymphadenopathy - Respiratory Respiratory exam: Present: decreased breath sounds, rhonchi. Absent: wheezes - Cardiovascular Cardiovascular exam: Present: RRR - GI/Abdominal GI/Abdominal exam: Present: normal bowel sounds, soft. Absent: distended, tenderness - Extremities Exam Extremities exam: Absent: pedal edema - Neurological Exam Neurological exam: Present: CN II-XII intact, strengths equal and symetr throughout. Absent: pronater drift, facial droop, speech deficit Additional comments: patient is alert, oriented to person and place. she answers 2006 to the year and [employer] as the president. She does not give straight answers and laughs upon questioning her. - Skin Skin exam: Absent: rash Internal Med - H&P Results - Labs CBC & Chem 7: 10/08/16 14:56 10/08/16 14:56 Labs: Short CBC 10/08/16 Range/Units 14:56 WBC 16.1 H (4.3-11.1) K/mcL Hgb 11.2 L (11.5-15.4) g/dL Hct 34.5 L (35.3-44.9) % Plt Count 451 H (140-400) K/mcL Neutrophils # 11.9 H (1.6-8.9) K/mcL BMP 10/08/16 14:56 Sodium 143 Potassium 3.3 L Chloride 110 H Carbon Dioxide 26 BUN 7 Creatinine 0.84 Glucose 93 Calcium 8.2 L Cardiac Enzymes 10/08/16 Range/Units 14:56 Troponin I 0.09 H* (0-0.03) ng/mL Liver Function 10/08/16 Range/Units 14:56 Total Bilirubin 0.3 (0.2-1.2) mg/dL Direct Bilirubin 0.2 (0.0-0.5) mg/dL AST 15 (5-34) Units/L ALT 9 (0-55) Units/L Alkaline Phosphatase 119 (38-126) Units/L Albumin 2.6 L (3.5-5.0) g/dL Urine 10/08/16 Range/Units 15:30 Urine Color Yellow (Yellow) Urine Clarity Cloudy A (Clear) Urine pH 6.0 (5.0-8.0) pH Units Ur Specific [place] 1.009 L (1.010-1.025) Urine Protein Negative (Neg-Trace) mg/dL Urine Glucose (UA) Normal (Normal) mg/dL - Impressions ITS Impressions Chest X-Ray 10/08/16 14:16 IMPRESSION: Persistent left basilar opacity may reflect pneumonia. Radiographic follow-up in 4-6 weeks is suggested to ensure resolution. CT imaging would be suggested if failure to resolve. Mild right basilar atelectasis. D/ / 10/08/2016 15:17:14 Dimitry Dutton MD / Maria Alejandra Renteria Interpreting Provider: Dimitry Dutton MD
[2016-10-08] MEDS: Ringers Solution, Lactated 1,000 ML IVC SCH (18:36)
[2016-10-08] MEDS: Pantoprazole 40 MG VIAL IVP SCH (18:36)
[2016-10-08] MEDS: Ipratropium/Albuterol Neb 3 ML IH SCH ×2 (19:42→23:49)
[2016-10-08] MEDS: Budesonide/Formoterol 160/4.5 MDI IH SCH (19:43)
[2016-10-08] MEDS ORDERED: 0.9 % Sodium Chloride 500 ML ONE ×2 (20:40→22:08)
[2016-10-08] MEDS ORDERED: *HR* LORazepam 2 MG/ML VIAL IVP PRN (21:23)
[2016-10-08] MEDS ORDERED: Nitroglycerin 0.4 MG TAB.SUBL SL PRN (21:44)
[2016-10-08] MEDS ORDERED: *HR* Heparin 5,000 UNIT/ML VIAL IVP PRN ×2 (21:44)
[2016-10-08] MEDS ORDERED: *HR* Heparin 5,000 UNIT/ML VIAL IVP ONE (21:44)
[2016-10-08] MEDS ORDERED: Heparin 25,000 UNIT/500 ML D5W 25,000 UNIT/500 ML MLS IVC SCH (21:45)
[2016-10-08 21:59] LABS: Hematocrit 36.5 % (35.3-44.9); Hemoglobin 11.8 g/dL (11.5-15.4); Mean Corpuscular HGB Conc 32.3 g/dL (31.6-35.5); Mean Corpuscular Hemoglobin 27.8 pg (28.0-33.3); Mean Corpuscular Volume 85.9 fL (83.0-100.0); Mean Platelet Volume 10.6 fL (9.4-12.4); Platelet Count 464 K/mcL (140-400); Red Blood Count 4.25 M/mcL (3.82-4.97); Red Cell Distribution Width 15.9 % (11.5-14.5)
[2016-10-08 22:08] LABS: INR 1.1; Prothrombin Time 12.3 Seconds (9.4-12.1)
[2016-10-08 22:10] LABS: Activated Partial Thrombo Time 32.9 Seconds (26.0-36.0)
[2016-10-09 02:51] LABS: Basophils % 0.2 %; Eosinophils # 0.2 K/mcL (0.0-0.6); Hematocrit 35.5 % (35.3-44.9); Hemoglobin 11.2 g/dL (11.5-15.4); Immature Granulocytes % 0.4 % (0-4); Lymphocytes # 3.2 K/mcL (0.6-4.6); Lymphocytes % 29.1 %; Mean Corpuscular HGB Conc 31.5 g/dL (31.6-35.5); Mean Corpuscular Hemoglobin 27.1 pg (28.0-33.3); Mean Platelet Volume 10.7 fL (9.4-12.4); Monocytes # 0.9 K/mcL (0.0-1.3); Neutrophils # 6.6 K/mcL (1.6-8.9); Platelet Count 457 K/mcL (140-400); Red Blood Count 4.13 M/mcL (3.82-4.97); Segmented Neutrophils % 60.3 %
[2016-10-09 02:53] LABS: BUN/Creatinine Ratio 7 (6-26); Blood Urea Nitrogen 6 mg/dL (7-20); Calcium 8.7 mg/dL (8.6-10.8); Carbon Dioxide 28 mEq/L (19-29); Chloride 107 mEq/L (98-109); Glucose 85 mg/dL (70-99); Osmolality,Calculated 291 (280-300); Phosphorous 2.6 mg/dL (2.3-4.7); Sodium 142 mEq/L (136-145); eGFR For African Americans > 60 (> 60); eGFR For Non-African Americans > 60 (> 60)
[2016-10-09 02:54] LABS: Chol/HDL Ratio 3.2 (0-4.9)
[2016-10-09] MEDS: Ipratropium/Albuterol Neb 3 ML IH SCH ×5 (03:55→21:10)
[2016-10-09] MEDS: Budesonide/Formoterol 160/4.5 MDI IH SCH ×2 (08:03→21:10)
--- NOTE | 2016-10-09 08:08 | Cardiology Consult Note ---
Date of Encounter: 10/09/16 Time of Encounter: 07:30 Assessment and Plan (1) Elevated troponin Current Visit: Yes Status: Acute Elevated troponin in the setting of polysubstance overdose and PNA; non- diagnostic for ACS. Likely secondary to demand ischemia. No indication for cardiac rehab. Patient denies chest pain or discomfort. No ischemic ECG changes noted. Recent TTE demonstrated preserved LVEF, 65% in August 2016. Will stop IV heparin gtt. Start asa 81 mg daily and low dose betablocker. Change home pravachol to atorvastatin. No further inpatient testing from Cardiology standpoint. Follow-up in the outpatient setting as scheduled. Discussion w patient/family: The assessment and plan as outlined above was discussed with the patient and/or family members who expressed understanding and agreement. All questions were answered. Thank you for involving us in the care of your patient. Please call with any questions. The patient will be discussed and reviewed with Dr. Peterson; changes to be made accordingly. History of Present Illness Consult date: 10/09/16 Requesting physician: Ron Bucio Consult reason: Elevated troponin Chief complaint: AMS, OD History of present illness: Ms. Spence is a 56 year old female with PMHx of CVA (August 2016), HLD, Bipolar disorder, COPD, GERD, anxiety who presented to [facility] via squad due to altered mental status and fall due to reported accidental overdose. Of note, patient was also in the ED for similar symptoms the previous night. HPI difficult to obtain as patient is confused upon exam. She denies chest pain or discomfort. No change in baseline dyspnea as patient has COPD and on home o2. Cardiology consulted for elevated troponin. Upon exam she has abrasions to her left arm and large bruise at right jaw. Prior CV testing: JOYCE 09/16/16: negative for intracardiac evidence of thrombus TTE 09/15/16: LVEF 65%, mild LVDD, no significant valvular dysfunction, normal wall motion Past Med Surg Social Fam HX - Past Medical History Attestation: Yes The following information was validated with the patient. Source: patient, old records reviewed Medical history: COPD, GERD, hyperlipidemia, myocardial infarction, seizures, thyroid disease Psychiatric history: anxiety, bipolar, depression - Past Surgical History Surgical History: , cholecystectomy, hysterectomy, other - Social History Smoking Status: Current every day smoker Smokeless Tobacco Status: No Alcohol use: none Drug use: marijuana - Family History Mother History Unknown: Yes Hx Family Cardiac Disorders: Yes Medications and Allergies Benztropine [Cogentin] 1 mg PO HS 02/17/15 [History] Cholecalciferol (Vitamin D3) [Vitamin D] 1,000 mg PO DAILY 02/17/15 [History] Diazepam [Valium] 7 mg PO BID 02/17/15 [History] Omeprazole [PriLOSEC] 40 mg PO DAILY 02/17/15 [History] Pravastatin Sodium [Pravachol] 40 mg PO HS 02/17/15 [History] Pregabalin [Lyrica] 100 mg PO TID 02/17/15 [History] Albuterol Sulfate [Proair Hfa] 2 puff IH QID PRN 07/20/16 [History] Budesonide/Formoterol 160/4.5 [Symbicort 160/4.5] 2 puff IH BIDR 07/20/16 [ History] Doxepin HCl 10 mg PO TID 07/20/16 [History] lamoTRIgine [Lamotrigine] 200 mg PO QAM 07/20/16 [History] Albuterol Neb [Proventil Neb] 2.5 mg IH TID PRN 09/15/16 [History] Lurasidone HCl [Latuda] 120 mg PO DAILY 09/15/16 [History] Oxycodone HCl 10 mg PO Q6H PRN 09/15/16 [History] Trazodone HCl 200 mg PO HS 09/15/16 [History] rOPINIRole [Requip] 1 mg PO DAILY 09/15/16 [History] Allergies Erythromycin Base Allergy (Verified 10/08/16 14:14) Swelling of Lip/Tongue/Throat hydroxyzine [From Vistaril] Allergy (Verified 10/08/16 14:14) See Comments MUSCLE SPASMS "MESSED ME ALL UP" Penicillins Allergy (Verified 10/08/16 14:14) Swelling of Lip/Tongue/Throat All Systems Review: A 10-system review of systems was performed and is negative for pertinent findings except as documented above in the HPI. - Cardiovascular Cardiovascular: as per HPI Physical Examination Vital Signs, Last 4 Hours Temp Pulse Resp BP Pulse Ox 10/09/16 04:11 98.0 F 81 18 95/60 100 General: Conversant, Other (confused) HEENT: Other (large bruise at right jaw) Cardiac: Reg Rate and Rhythm, Normal S1 and S2 Lungs: Other (Coarse breath sounds throughout) Neuro: No focal deficits noted, Other (alert to self, location) Abdomen: Soft Skin: No rashes noted on visualized skin Musculoskeletal: No Chest Wall Tenderness Extremities: No Edema, Normal Pulses Results 10/09/16 02:34 10/09/16 02:34 Lab Results 10/08/16 10/08/16 10/08/16 21:01 21:01 21:53 WBC 12.3 H Hgb 11.8 Hct 36.5 Plt Count 464 H INR APTT Sodium Potassium Chloride Carbon Dioxide BUN Creatinine Glucose Calcium Magnesium 2.0 Troponin I 0.28 H* 10/08/16 10/09/16 10/09/16 21:53 02:34 02:34 WBC 10.9 Hgb 11.2 L Hct 35.5 Plt Count 457 H INR 1.1 APTT 32.9 Sodium 142 Potassium 4.0 Chloride 107 Carbon Dioxide 28 BUN 6 L Creatinine 0.85 Glucose 85 Calcium 8.7 Magnesium Troponin I 10/09/16 10/09/16 02:34 04:34 WBC Hgb Hct Plt Count INR APTT 90.8 H D Sodium Potassium Chloride Carbon Dioxide BUN Creatinine Glucose Calcium Magnesium Troponin I 0.18 H* - Imaging and Cardiology Echo: report reviewed Other Results: 12 hour tele: avg HR=91 SR. No significant event noted. Artifact present. - EKG Interpretation EKG results cardiology: personally reviewed Consult Discharge Plan - Plan Referrals: Ceasar Arce MD [Primary Care Provider] - (Web requested 10-08-16) Zulma Ortega DO [Partnered Physician] - 10/18/16 1:20 pm
[2016-10-09] MEDS: Lactobacillus 1 EACH CAP.SPRINK PO SCH ×2 (08:12→22:14)
[2016-10-09] MEDS: Pantoprazole 40 MG VIAL IVP SCH (08:13)
[2016-10-09] MEDS: Clindamycin 600 MG/50 ML 600 MG/50 ML IV.SOLN IVPB SCH ×3 (08:13→23:22)
[2016-10-09] MEDS ORDERED: diazePAM 2 MG TABLET PO SCH (09:00)
[2016-10-09] MEDS ORDERED: lamoTRIgine 25 MG TABLET PO SCH (09:00)
[2016-10-09] MEDS: Aspirin Enteric Coated 81 MG Tablet PO SCH (09:32)
[2016-10-09] MEDS: Ringers Solution, Lactated 1,000 ML IVC SCH ×2 (09:35→22:15)
--- NOTE | 2016-10-09 11:49 | Internal Med Progress Note ---
Date of Encounter: 10/09/16 Time of Encounter: 08:20 - Assessment and plan (1) Pneumonia Current Visit: Yes Status: Acute Assessment and plan: On IV antibiotics. WBC count is improving. Continue O2 supplementation. Moderate risk for complications. Qualifiers: Pneumonia type: aspiration pneumonia Aspiration pneumonia type: due to gastric secretions Laterality: left Lung location: lower lobe of lung Qualified Code(s): J69.0 - Pneumonitis due to inhalation of food and vomit (2) Acute metabolic encephalopathy Current Visit: Yes Status: Acute Assessment and plan: Improved. Patient is more awake and alert today. Oriented. Likely from use of multiple psychotropic medications and pneumonia. (3) Bipolar disorder Current Visit: No Status: Chronic Assessment and plan: Continue Lamictal and Cogentin Qualifiers: Active/Remission status: remission status unspecified Qualified Code(s): F31.9 - Bipolar disorder, unspecified (4) COPD (chronic obstructive pulmonary disease) Current Visit: Yes Status: Chronic Assessment and plan: On bronchodilators as needed Qualifiers: COPD type: unspecified COPD Qualified Code(s): J44.9 - Chronic obstructive pulmonary disease, unspecified (5) CVA (cerebral vascular accident) Current Visit: No Status: Chronic Assessment and plan: Recent CVA. Continue aspirin and statin. Will consult physical therapy for evaluation as patient is having recurrent falls at home. Qualifiers: CVA mechanism: embolism Precerebral and cerebral artery: middle cerebral artery Laterality of affected vessel: left Qualified Code(s): I63.412 - Cerebral infarction due to embolism of left middle cerebral artery (6) Polysubstance abuse Current Visit: Yes Status: Chronic Assessment and plan: Will monitor for withdrawal symptoms. (7) Tobacco abuse Current Visit: No Status: Chronic (8) Recurrent falls Current Visit: Yes Status: Acute Assessment and plan: Will consult physical therapy for evaluation due to recurrent falls. Also check orthostatic blood pressure. (9) Elevated troponin Current Visit: Yes Status: Acute Assessment and plan: Troponins elevated. Likely from demand ischemia. Cardiology consult appreciated. Will stop IV heparin as patient does not appear to be having acute non-ST elevation TN. Patient also had a recent 2-D echocardiogram which showed EF 65%. - Subjective Interval history: Patient is awake and alert. Feels better today. Has a bruise on her right maxillary and mandibular region from recent fall. Denies any dizziness or lightheadedness at this time. No hallucinations. Does have tremors. No chest pain. - Constitutional Vitals: Temp Pulse Resp BP Pulse Ox 98 F 105 16 117/81 92 10/09/16 08:35 10/09/16 08:35 10/09/16 11:36 10/09/16 08:35 10/09/16 11:36 General appearance: Present: cooperative, A&O X 3, pleasant, no acute distress, answers questions appropriately - Head Additional comments: ecchymosis noted on the mandibular and maxillary region - Neck Neck exam general surgery: Present: supple, trachea midline. Absent: lymphadenopathy - Respiratory Respiratory exam: Present: prolonged expiratory phase, rhonchi. Absent: accessory muscle use, rales, wheezes - Cardiovascular Cardiovascular exam: Present: RRR, +S1, +S2. Absent: diastolic murmur, gallop, rubs, systolic murmur - GI/Abdominal GI/Abdominal exam: Present: normal bowel sounds, soft, no peritoneal signs. Absent: distended, tenderness - Extremities Exam Extremities exam: Present: warm, radial pulses palpable and symetrical. Absent : calf tenderness, cyanotic, pedal edema - Neurological Exam Neurological exam: Present: oriented X3, no focal deficits. Absent: facial droop, speech deficit Internal Medicine: Result - Labs CBC & Chem 7: 10/09/16 02:34 10/09/16 02:34 Labs: Short CBC 10/08/16 10/09/16 Range/Units 21:53 02:34 WBC 12.3 H 10.9 (4.3-11.1) K/mcL Hgb 11.8 11.2 L (11.5-15.4) g/dL Hct 36.5 35.5 (35.3-44.9) % Plt Count 464 H 457 H (140-400) K/mcL Neutrophils # 6.6 (1.6-8.9) K/mcL BMP 10/09/16 02:34 Sodium 142 Potassium 4.0 Chloride 107 Carbon Dioxide 28 BUN 6 L Creatinine 0.85 Glucose 85 Calcium 8.7 Cardiac Enzymes 10/08/16 10/09/16 10/09/16 Range/Units 21:01 02:34 08:25 Troponin I 0.28 H* 0.18 H* 0.15 H* (0-0.03) ng/mL - ABG Interpretation ABG results: PT/INR, D-dimer PT 12.3 Seconds (9.4-12.1) H 10/08/16 21:53 Consult Discharge Plan - Plan Referrals: Ceasar Arce MD [Primary Care Provider] - (Web requested 10-08-16) Zulma Ortega DO [Partnered Physician] - 10/18/16 1:20 pm - Attending Attestation This document has been at least partially created by [employer] recognition technology by Dr. Bearden. Errors in grammar, wording or other phrases may exist. If errors are found after the documentation is signed, they will be addressed individually in the addendum section of this document when appropriate.
[2016-10-09] MEDS: *HR* OxyCODONE/APAP 10/325 TABLET PO PRN ×2 (15:54→22:13)
[2016-10-09] MEDS ORDERED: Levofloxacin 500 MG/100 ML 500 MG/100 ML BAG IVPB SCH (18:00)
[2016-10-10] MEDS: Ipratropium/Albuterol Neb 3 ML IH SCH ×3 (00:32→08:00)
[2016-10-10 03:55] LABS: Basophils % 0.2 %; Eosinophils # 0.2 K/mcL (0.0-0.6); Immature Granulocytes % 0.3 % (0-4); Lymphocytes # 2.8 K/mcL (0.6-4.6); Lymphocytes % 26.5 %; Mean Corpuscular HGB Conc 31.4 g/dL (31.6-35.5); Mean Corpuscular Hemoglobin 27.2 pg (28.0-33.3); Mean Corpuscular Volume 86.4 fL (83.0-100.0); Mean Platelet Volume 11.7 fL (9.4-12.4); Monocytes # 0.8 K/mcL (0.0-1.3); Monocytes % 7.9 %; Neutrophils # 6.7 K/mcL (1.6-8.9); Platelet Count 445 K/mcL (140-400); Red Blood Count 4.05 M/mcL (3.82-4.97); Red Cell Distribution Width 16.1 % (11.5-14.5); Segmented Neutrophils % 63.1 %
[2016-10-10 03:56] LABS: BUN/Creatinine Ratio 10 (6-26); Blood Urea Nitrogen 10 mg/dL (7-20); Calcium 8.7 mg/dL (8.6-10.8); Carbon Dioxide 26 mEq/L (19-29); Chloride 104 mEq/L (98-109); Glucose 94 mg/dL (70-99); Osmolality,Calculated 285 (280-300); Sodium 138 mEq/L (136-145); eGFR For African Americans > 60 (> 60); eGFR For Non-African Americans 56 (> 60)
[2016-10-10] MEDS ORDERED: *HR* OxyCODONE/APAP 10/325 TABLET PO PRN (07:50)
[2016-10-10] MEDS ORDERED: Ipratropium/Albuterol Neb 3 ML IH PRN (08:06)
[2016-10-10] MEDS ORDERED: diazePAM 2 MG TABLET PO PRN (08:07)
[2016-10-10] MEDS ORDERED: diazePAM 5 MG TABLET PO PRN (08:08)
[2016-10-10] MEDS: Aspirin Enteric Coated 81 MG Tablet PO SCH (08:42)
[2016-10-10] MEDS: Lactobacillus 1 EACH CAP.SPRINK PO SCH (08:42)
[2016-10-10] MEDS: Clindamycin 600 MG/50 ML 600 MG/50 ML IV.SOLN IVPB SCH ×2 (08:43→16:04)
[2016-10-10] MEDS ORDERED: diazePAM 2 MG TABLET PO SCH (09:00)
[2016-10-10] MEDS ORDERED: lamoTRIgine 100 MG TABLET PO SCH (09:00)
[2016-10-10] MEDS ORDERED: diazePAM 5 MG TABLET PO SCH (09:00)
--- NOTE | 2016-10-10 09:42 | Electrocardiograph Report ---
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
[2016-10-10 11:42] VITALS: BP 110/72
[2016-10-10] MEDS: Budesonide/Formoterol 160/4.5 MDI IH SCH (11:45)
[2016-10-10] MEDS: Ringers Solution, Lactated 1,000 ML IVC SCH (13:54)
--- NOTE | 2016-10-10 14:22 | Discharge Summary ---
Date of Encounter: 10/10/16 Time of Encounter: 14:10 - Discharge Diagnosis (1) Acute metabolic encephalopathy Priority: Primary Status: Resolved (2) Pneumonia Priority: Secondary Status: Acute Qualifiers: Pneumonia type: aspiration pneumonia Aspiration pneumonia type: due to gastric secretions Laterality: left Lung location: lower lobe of lung Qualified Code(s): J69.0 - Pneumonitis due to inhalation of food and vomit (3) Bipolar disorder Priority: Secondary Status: Chronic Qualifiers: Active/Remission status: remission status unspecified Qualified Code(s): F31.9 - Bipolar disorder, unspecified (4) COPD (chronic obstructive pulmonary disease) Priority: Secondary Status: Chronic Qualifiers: COPD type: unspecified COPD Qualified Code(s): J44.9 - Chronic obstructive pulmonary disease, unspecified (5) CVA (cerebral vascular accident) Priority: Secondary Status: Chronic Qualifiers: CVA mechanism: embolism Precerebral and cerebral artery: middle cerebral artery Laterality of affected vessel: left Qualified Code(s): I63.412 - Cerebral infarction due to embolism of left middle cerebral artery (6) Polysubstance abuse Priority: Secondary Status: Chronic (7) Tobacco abuse Priority: Secondary Status: Chronic (8) Recurrent falls Priority: Secondary Status: Acute (9) Elevated troponin Priority: Secondary Status: Acute - Discharge Medications Prescriptions: Aspirin Enteric Coated [Aspirin EC] 81 mg PO DAILY #30 tablet. Clindamycin HCl 300 mg PO QID #20 capsule Lactobacillus [Culturelle] 1 each PO DAILY #20 cap.sprink levoFLOXacin [Levofloxacin] 500 mg PO DAILY #7 tablet Metoprolol [Lopressor] 12.5 mg PO BID #30 tablet Home Medications: Benztropine [Cogentin] 1 mg PO HS 02/17/15 [History] Cholecalciferol (Vitamin D3) [Vitamin D] 1,000 mg PO DAILY 02/17/15 [History] Diazepam [Valium] 7 mg PO BID 02/17/15 [History] Omeprazole [PriLOSEC] 40 mg PO DAILY 02/17/15 [History] Pravastatin Sodium [Pravachol] 40 mg PO HS 02/17/15 [History] Pregabalin [Lyrica] 100 mg PO TID 02/17/15 [History] Albuterol Sulfate [Proair Hfa] 2 puff IH QID PRN 07/20/16 [History] Budesonide/Formoterol 160/4.5 [Symbicort 160/4.5] 2 puff IH BIDR 07/20/16 [ History] Doxepin HCl 10 mg PO TID 07/20/16 [History] lamoTRIgine [Lamotrigine] 200 mg PO QAM 07/20/16 [History] Albuterol Neb [Proventil Neb] 2.5 mg IH TID PRN 09/15/16 [History] Lurasidone HCl [Latuda] 120 mg PO DAILY 09/15/16 [History] Oxycodone HCl 10 mg PO Q6H PRN 09/15/16 [History] Trazodone HCl 200 mg PO HS 09/15/16 [History] rOPINIRole [Requip] 1 mg PO DAILY 09/15/16 [History] Aspirin Enteric Coated [Aspirin EC] 81 mg PO DAILY #30 tablet. 10/10/16 [Rx] Clindamycin HCl 300 mg PO QID #20 capsule 10/10/16 [Rx] Lactobacillus [Culturelle] 1 each PO DAILY #20 cap.sprink 10/10/16 [Rx] Metoprolol [Lopressor] 12.5 mg PO BID #30 tablet 10/10/16 [Rx] levoFLOXacin [Levofloxacin] 500 mg PO DAILY #7 tablet 10/10/16 [Rx] Allergies/Adverse Reactions: Allergies Erythromycin Base Allergy (Verified 10/08/16 14:14) Swelling of Lip/Tongue/Throat hydroxyzine [From Vistaril] Allergy (Verified 10/08/16 14:14) See Comments MUSCLE SPASMS "MESSED ME ALL UP" Penicillins Allergy (Verified 10/08/16 14:14) Swelling of Lip/Tongue/Throat Date of admission: 10/09/16 11:56 Primary care physician: Ceasar Arce MD Consults: 10/10/16 07:17 Consult to Molding Process Technician [CONS] Routine Reason for SW Consult: information for polysubstance abuse Discharging clinician: Arianne Bearden Anticipated date of discharge: 10/10/16 - Patient Status Disposition: Home Health Service Condition: Fair Functional capacity at discharge: uses cane/walker Overall status at discharge: patient is progressing back to baseline - Discharge Instructions Instructions: Mood Disorders (DC), Chronic Obstructive Pulmonary Disease (DC), Anxiety (DC), Pneumonia (DC) Follow Up With: Ceasar Arce MD [Primary Care Provider] - (Web requested 10-08-16) Zulma Ortega DO [Partnered Physician] - 10/18/16 1:20 pm Forms: ED Satisfaction Letter - Diet and Activity Activity: as per physical therapy Diet: low fat, low cholesterol, low salt diet Hospital course: Ms. Spence is a 56 year old female patient with history of prior stroke, polysubstance abuse, chronic respiratory failure, COPD who presented to the ER with complaints of hypoxia and confusion at home. She apparently had come to the ER just the day prior after an accidental overdose with her medications which include psychotropic medications. This time she was saturating at 87% on 4 L nasal cannula. She has also had multiple bruises all over her skin and including her face from multiple falls at home. On evaluation in the ER with a chest x-ray, she was found to have a left lower lobe infiltrate. She was also having leukocytosis and she was started on antibiotics for possible aspiration pneumonia. Her mental status returned to baseline by yesterday morning but she is continued to feel a bit weak. She was evaluated by physical therapy and recommended placement to skilled rehabilitation. However patient wishes to go home. Home health will be arranged for the patient. Her leukocytosis has resolved. Patient is now back on 2L nasal cannula and is stable for discharge home on oral antibiotics. On initial presentation, she also had a slight elevation in her troponins. Cardiology was consulted. They believe the elevation is due to hypoxia and demand ischemia. They did not recommend any further work up at this time. Patient did not have any chest pain and a recent echo done here showed EF of 65% . - Time Spent with Patient Total time spent providing and/or coordinating discharge services: Greater than 30 minutes (40 min) - Constitutional Vitals: Temp Pulse Resp BP Pulse Ox 98.5 F 80 14 110/72 92 10/10/16 11:41 10/10/16 11:41 10/10/16 11:45 10/10/16 11:41 10/10/16 11:45 General appearance: Present: cooperative, A&O X 3, pleasant, no acute distress, answers questions appropriately - Respiratory Respiratory exam: Present: prolonged expiratory phase, rhonchi. Absent: accessory muscle use, rales, wheezes - Cardiovascular Cardiovascular exam: Present: RRR, +S1, +S2. Absent: diastolic murmur, gallop, rubs, systolic murmur - Extremities Exam Extremities exam: Present: warm, radial pulses palpable and symetrical. Absent : calf tenderness, cyanotic, pedal edema - Neurological Exam Neurological exam: Present: alert, oriented X3, no focal deficits. Absent: facial droop, speech deficit - Attending Attestation This document has been at least partially created by [employer] recognition technology by Dr. Bearden. Errors in grammar, wording or other phrases may exist. If errors are found after the documentation is signed, they will be addressed individually in the addendum section of this document when appropriate.
--- NOTE | 2016-10-10 14:40 | Physician Discharge Referral ---
Home Health/Hosp Referral Info Transfer to: Home Health Provider in Charge Post Discharge: PCP - Diagnosis (1) Acute metabolic encephalopathy Priority: Primary Status: Resolved (2) Pneumonia Priority: Secondary Status: Acute (3) Bipolar disorder Priority: Secondary Status: Chronic (4) COPD (chronic obstructive pulmonary disease) Priority: Secondary Status: Chronic (5) CVA (cerebral vascular accident) Priority: Secondary Status: Chronic (6) Polysubstance abuse Priority: Secondary Status: Chronic (7) Tobacco abuse Priority: Secondary Status: Chronic (8) Recurrent falls Priority: Secondary Status: Acute (9) Elevated troponin Priority: Secondary Status: Acute - Respiratory Orders Smoking Cessation: Smoking cessation has been advised. For more information, call the [place] Tobacco Quit Line at 6-538-XPGP-NOW. - Diet/Nutrition Diet/Nutrition Orders: Cardiac - Activity Activity Orders: Walker - Services Needed Following services are medically necessary services: Nursing, Physical Therapy, Occupational Therapy - Transfer Medications Prescriptions: Aspirin Enteric Coated [Aspirin EC] 81 mg PO DAILY #30 tablet. Clindamycin HCl 300 mg PO QID #20 capsule Lactobacillus [Culturelle] 1 each PO DAILY #20 cap.sprink levoFLOXacin [Levofloxacin] 500 mg PO DAILY #7 tablet Metoprolol [Lopressor] 12.5 mg PO BID #30 tablet Home Medications: Benztropine [Cogentin] 1 mg PO HS 02/17/15 [History] Cholecalciferol (Vitamin D3) [Vitamin D] 1,000 mg PO DAILY 02/17/15 [History] Diazepam [Valium] 7 mg PO BID 02/17/15 [History] Omeprazole [PriLOSEC] 40 mg PO DAILY 02/17/15 [History] Pravastatin Sodium [Pravachol] 40 mg PO HS 02/17/15 [History] Pregabalin [Lyrica] 100 mg PO TID 02/17/15 [History] Albuterol Sulfate [Proair Hfa] 2 puff IH QID PRN 07/20/16 [History] Budesonide/Formoterol 160/4.5 [Symbicort 160/4.5] 2 puff IH BIDR 07/20/16 [ History] Doxepin HCl 10 mg PO TID 07/20/16 [History] lamoTRIgine [Lamotrigine] 200 mg PO QAM 07/20/16 [History] Albuterol Neb [Proventil Neb] 2.5 mg IH TID PRN 09/15/16 [History] Lurasidone HCl [Latuda] 120 mg PO DAILY 09/15/16 [History] Oxycodone HCl 10 mg PO Q6H PRN 09/15/16 [History] Trazodone HCl 200 mg PO HS 09/15/16 [History] rOPINIRole [Requip] 1 mg PO DAILY 09/15/16 [History] Aspirin Enteric Coated [Aspirin EC] 81 mg PO DAILY #30 tablet. 10/10/16 [Rx] Clindamycin HCl 300 mg PO QID #20 capsule 10/10/16 [Rx] Lactobacillus [Culturelle] 1 each PO DAILY #20 cap.sprink 10/10/16 [Rx] Metoprolol [Lopressor] 12.5 mg PO BID #30 tablet 10/10/16 [Rx] levoFLOXacin [Levofloxacin] 500 mg PO DAILY #7 tablet 10/10/16 [Rx] Allergies/Adverse Reactions: Allergies Erythromycin Base Allergy (Verified 10/08/16 14:14) Swelling of Lip/Tongue/Throat hydroxyzine [From Vistaril] Allergy (Verified 10/08/16 14:14) See Comments MUSCLE SPASMS "MESSED ME ALL UP" Penicillins Allergy (Verified 10/08/16 14:14) Swelling of Lip/Tongue/Throat Certification: Further, I certify that my clinical findings support that this patient is homebound (i.e. absences from home require considerable and taxing effort and are for medical reasons or druze services or infrequently or short duration when for other reasons) because: Homebound Reason: Patient requires assistance of a person or device to safely leave home Attestation: My signature below is to certify that this patient is under my care and that I, or nurse practitioner, or a physician's hospital clinic assistant working with me, has a face-to -face encounter with this patient.
== END 2016-10-10 18:30 | disposition home health service (06) | DRG 812 ==
LOC: 2ANU 14:10 → EMEROO 14:10 → 2ANU 18:13
PROVIDERS: ADMIT Internal Medicine; ATTEND Internal Medicine

== ENCOUNTER 2016-12-12 22:24 | Observation (INO) ==
--- NOTE | 2016-12-12 22:40 | Emergency Department Note ---
Disposition Clinical Impression: COPD with acute exacerbation, Hypoxia Disposition: Admitted As Inpatient Condition: Good Referrals: NONE,PCP [Non-Partnered Physician] - Forms: ED Satisfaction Letter Time of Disposition: 01:35 Altered Mental Status HPI - General Chief Complaint: ED Altered Mental Status Stated Complaint: AMS Time Seen by Provider: 12/12/16 22:27 Source: patient, EMS Mode of arrival: EMS Limitations: altered mental status Nursing Notes Reviewed: Yes Vital Signs Reviewed: Yes - History of Present Illness HPI Narrative: 56 year old female who wears 3LNC at home at all times, states that she feels increasingly more altered. PAtinet states that she nichole sbeen feeling more short of breath recently but it has resolved. She states that her left foot and leg are in pain. She denies all other symptoms at this time but however she is not the most reliable historian. Patient states that her left leg seems more swollen than usual and denies any history of HI/CHF/stroke. She states that she has had intermitment confusion and it is worsening. No family at bedside and EMS could not provide any other extra information. - Related Data Home Medications Medication Instructions Recorded Confirmed Benztropine [Cogentin] 1 mg PO HS 02/17/15 10/08/16 Cholecalciferol (Vitamin D3) 1,000 mg PO DAILY 02/17/15 10/08/16 [Vitamin D] Diazepam [Valium] 7 mg PO BID 02/17/15 10/08/16 Omeprazole [PriLOSEC] 40 mg PO DAILY 02/17/15 10/08/16 Pravastatin Sodium [Pravachol] 40 mg PO HS 02/17/15 10/08/16 Pregabalin [Lyrica] 100 mg PO TID 02/17/15 10/08/16 Albuterol Sulfate [Proair Hfa] 2 puff IH QID PRN 07/20/16 10/08/16 Budesonide/Formoterol 160/4.5 2 puff IH BIDR 07/20/16 10/08/16 [Symbicort 160/4.5] Doxepin HCl 10 mg PO TID 07/20/16 10/08/16 lamoTRIgine [Lamotrigine] 200 mg PO QAM 07/20/16 10/08/16 Albuterol Neb [Proventil Neb] 2.5 mg IH TID PRN 09/15/16 10/08/16 Lurasidone HCl [Latuda] 120 mg PO DAILY 09/15/16 10/08/16 Oxycodone HCl 10 mg PO Q6H PRN 09/15/16 10/08/16 Trazodone HCl 200 mg PO HS 09/15/16 10/08/16 rOPINIRole [Requip] 1 mg PO DAILY 09/15/16 10/08/16 Previous Rx's Medication Instructions Recorded Aspirin Enteric Coated [Aspirin EC] 81 mg PO DAILY #30 tablet. 10/10/16 Clindamycin HCl 300 mg PO QID #20 capsule 10/10/16 Lactobacillus [Culturelle] 1 each PO DAILY #20 cap.sprink 10/10/16 Metoprolol [Lopressor] 12.5 mg PO BID #30 tablet 10/10/16 levoFLOXacin [Levofloxacin] 500 mg PO DAILY #7 tablet 10/10/16 Allergies Allergy/AdvReac Type Severity Reaction Status Date / Time Erythromycin Base Allergy Swelling Verified 10/08/16 14:14 of Lip/Tongue/Throat hydroxyzine [From Vistaril] Allergy See Verified 10/08/16 14:14 Comments Penicillins Allergy Swelling Verified 10/08/16 14:14 of Lip/Tongue/Throat Review of Systems: As Per HPI Limitations: ROS unobtainable due to patients medical condition Constitutional: Denies: fever, chills, weakness, weight change Eyes: Denies: eye pain, eye discharge, vision change ENT ED: Denies: ear pain, throat pain, dental pain, hearing loss, epistaxis, congestion, dysphagia Cardiovascular: Denies: chest pain, palpitations, dyspnea on exertion, edema, syncope Respiratory: Reports: dyspnea Gastrointestinal: Denies: abdominal pain, nausea, vomiting, diarrhea, constipation, hematemesis, melena, hematochezia Genitourinary: Denies: dysuria, frequency, hematuria, discharge Musculoskeletal: Reports: other (left leg and foot pain) Integumentary: Denies: rash, abrasion, lesions Neurological: Reports: confusion Psychiatric: Denies: anxiety, depression, suicidal thoughts, homicidal thoughts , auditory hallucinations, visual hallucinations Endocrine: Denies: fatigue Hematological/Lymphatic: Denies: easy bleeding, easy bruising Allergic/Immunologic: Denies: facial swelling, urticaria Past Medical History - Past Medical History Medical history: Reports: COPD, GERD, hyperlipidemia, myocardial infarction, seizures, thyroid disease Surgical history: Reports: , cholecystectomy, hysterectomy, other Psychiatric history: Reports: anxiety, bipolar, depression 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: Reports: no 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 - Social History Smoking Status: Current every day smoker Smokeless Tobacco Status: No Alcohol use: Reports: none Drug use: Reports: marijuana Physical Exam - General Limitations: altered mental status General appearance: alert, in no apparent distress - Head Head exam: atraumatic, normocephalic, normal inspection - Eye Eye exam: Present: normal appearance, PERRL, EOMI - Expanded Eye Exam Pupils: Left: reactive - ENT ENT exam: normal exam, normal oropharynx, mucous membranes moist - Expanded ENT Exam External ear exam: Present: normal external inspection Mouth exam: Present: normal external inspection Teeth exam: Present: normal inspection Throat exam: Present: normal inspection - Neck Neck exam: Present: normal inspection, full ROM, trachea midline - Chest Chest inspection: Present: normal inspection, symmetric chest wall rise - Respiratory Respiratory exam: Present: normal lung sounds bilaterally - Cardiovascular Cardiovascular exam: Present: regular rate, normal rhythm, normal heart sounds - Abdominal Exam Abdominal exam: Present: soft, Non-Tender. Absent: tenderness, distention, guarding, rebound, rigidity - Extremities Exam Extremities exam: Present: normal inspection, full ROM. Absent: tenderness, pedal edema - Expanded Upper Extremity Exam Shoulder exam: Present: normal inspection, full ROM Arm exam: Present: normal inspection, full ROM Elbow exam: Present: normal inspection, full ROM Forearm/Wrist exam: Present: normal inspection, full ROM Hand exam: Present: normal inspection, full ROM Vascular exam: Normal: capillary refill, radial pulse - Expanded Lower Extremity Exam Hip/Pelvis exam: Present: normal inspection, full ROM Upper leg exam: Present: normal inspection, full ROM Knee exam: Present: normal inspection, full ROM Lower leg exam: Present: normal inspection, full ROM, swelling (left and right lower extremity swelling; warm no signs of infection), Homans' sign Ankle exam: Present: normal inspection, full ROM Foot/toe exam: Present: normal inspection, full ROM Neurovascular/Tendon exam: Absent: motor deficit, sensory deficit, tendon deficit - Back Exam Back exam: Present: normal inspection, full ROM. Absent: tenderness - Neurological Exam Neurological exam: Present: alert, oriented X3 - Expanded Neurological Exam Patient oriented to: Present: person, place, time Coma Scale Eye Opening: Spontaneous Coma Scale Motor Response: Obeys Commands Coma Scale Verbal Response: Oriented Coma Scale Total: 15 - Psychiatric Psychiatric exam: Present: normal affect, normal mood - Skin Skin exam: Present: warm, dry, intact, normal color Course Course Narrative: chinmay has an elevated D-dimer. WE will do a LLE DVT US and CTA chest to rule out PE. IVF Chinmay was hypoxic on arrival with low 02 tht was 87% and now is plced on 4LNC and she is now 90-91% - Reevaluation(s) Reevaluation #1: DVT US is negative and CTA chest is negative or PE. WE will give her breathing treatemnts. Time: 00:28 - Consultations Consultation #1: discusssed case with Dr. Jauregui and he has accepted chinmay for admission. He is requesting and ABG Time: 01:34 Vital Signs Temperature 98.8 F 12/12/16 22:27 Pulse Rate 94 12/12/16 22:27 Respiratory Rate 20 12/12/16 22:27 Blood Pressure 123/62 12/12/16 22:27 O2 Sat by Pulse Oximetry 90 12/12/16 22:27 Temperature 98.8 F 12/12/16 22:27 Pulse Rate 94 12/12/16 22:27 Respiratory Rate 16 12/13/16 00:47 Blood Pressure 123/62 12/12/16 22:27 O2 Sat by Pulse Oximetry 96 12/13/16 00:47 Oxygen Delivery Oxygen Delivery Room Air Altered Mental Status - Lab Data Result diagrams: 12/12/16 22:42 12/12/16 22:42 Lab Results 12/12/16 12/12/16 12/12/16 Range/Units 22:30 22:42 22:42 WBC 10.6 (4.3-11.1) K/mcL RBC 4.18 (3.82-4.97) M/mcL Hgb 11.7 (11.5-15.4) g/dL Hct 37.1 (35.3-44.9) % MCV 88.8 (83.0-100.0) fL MCH 28.0 (28.0-33.3) pg MCHC 31.5 L (31.6-35.5) g/dL RDW 16.3 H (11.5-14.5) % Plt Count 406 H (140-400) K/mcL MPV 11.1 (9.4-12.4) fL Immature Gran % 0.3 (0-4) % Seg Neutrophils % 62.2 % Lymphocytes % 27.6 % Monocytes % 8.3 % Eosinophils % 1.4 % Basophils % 0.2 % Neutrophils # 6.6 (1.6-8.9) K/mcL Lymphocytes # 2.9 (0.6-4.6) K/mcL Monocytes # 0.9 (0.0-1.3) K/mcL Eosinophils # 0.2 (0.0-0.6) K/mcL Basophils # 0.0 (0.0-0.2) K/mcL PT 12.0 (9.4-12.1) Seconds INR 1.1 APTT 32.8 (26.0-36.0) Seconds D-Dimer (0-500) ng/mLFEU Sodium (136-145) mEq/L Potassium (3.5-4.5) mEq/L Chloride (98-109) mEq/L Carbon Dioxide (19-29) mEq/L BUN (7-20) mg/dL Creatinine (0.57-1.11) mg/dL Est GFR ( Amer) (> 60) Est GFR (Non-Af Amer) (> 60) BUN/Creatinine Ratio (6-26) Glucose (70-99) mg/dL POC Glucose 104 H (58-89) Calculated Osmolality (280-300) Lactic Acid (0.5-2.2) mmol/L Calcium (8.6-10.8) mg/dL Total Bilirubin (0.2-1.2) mg/dL Direct Bilirubin (0.0-0.5) mg/dL Indirect Bilirubin (0.0-1.2) mg/dL AST (5-34) Units/L ALT (0-55) Units/L Alkaline Phosphatase (38-126) Units/L Troponin I (0-0.03) ng/mL B-Natriuretic Peptide (0-100) pg/mL Serum Total Protein (6.0-8.3) g/dL Albumin (3.5-5.0) g/dL Globulin (2.4-3.5) g/dL Albumin/Globulin Ratio (1.1-2.2) Urine Color (Yellow) Urine Clarity (Clear) Urine pH (5.0-8.0) pH Units Ur Specific [place] (1.010-1.025) Urine Protein (Neg-Trace) mg/dL Urine Glucose (UA) (Normal) mg/dL Urine Ketones (Negative) mg/dL Urine Blood (Negative) Urine Nitrite (Negative) Urine Bilirubin (Negative) Urine Urobilinogen (Normal) mg/dL Ur Leukocyte Esterase (Negative) Ur Culture Indicated? (NO) Urine Opiates Screen (Ksvntm=520) ng/mL Ur Barbiturates Screen (Omkwre=053) ng/mL Ur Phencyclidine Scrn (Cutoff=25) ng/mL Ur Amphetamines Screen (Jgfsha=4383) ng/mL U Benzodiazepines Scrn (Jugdie=429) ng/mL Urine Cocaine Screen (Cutoff= 300) ng/mL U Marijuana (THC) Screen (Cutoff = 50) ng/mL Ethyl Alcohol (0-10) mg/dL 12/12/16 12/12/16 12/12/16 Range/Units 22:42 22:42 22:42 WBC (4.3-11.1) K/mcL RBC (3.82-4.97) M/mcL Hgb (11.5-15.4) g/dL Hct (35.3-44.9) % MCV (83.0-100.0) fL MCH (28.0-33.3) pg MCHC (31.6-35.5) g/dL RDW (11.5-14.5) % Plt Count (140-400) K/mcL MPV (9.4-12.4) fL Immature Gran % (0-4) % Seg Neutrophils % % Lymphocytes % % Monocytes % % Eosinophils % % Basophils % % Neutrophils # (1.6-8.9) K/mcL Lymphocytes # (0.6-4.6) K/mcL Monocytes # (0.0-1.3) K/mcL Eosinophils # (0.0-0.6) K/mcL Basophils # (0.0-0.2) K/mcL PT (9.4-12.1) Seconds INR APTT (26.0-36.0) Seconds D-Dimer 826 H (0-500) ng/mLFEU Sodium 137 (136-145) mEq/L Potassium 3.5 (3.5-4.5) mEq/L Chloride 102 (98-109) mEq/L Carbon Dioxide 26 (19-29) mEq/L BUN 4 L (7-20) mg/dL Creatinine 0.87 (0.57-1.11) mg/dL Est GFR ( Amer) > 60 (> 60) Est GFR (Non-Af Amer) > 60 (> 60) BUN/Creatinine Ratio 5 L (6-26) Glucose 95 (70-99) mg/dL POC Glucose (58-89) Calculated Osmolality 281 (280-300) Lactic Acid (0.5-2.2) mmol/L Calcium 9.1 (8.6-10.8) mg/dL Total Bilirubin < 0.3 (0.2-1.2) mg/dL Direct Bilirubin 0.1 (0.0-0.5) mg/dL Indirect Bilirubin 0.2 (0.0-1.2) mg/dL AST 13 (5-34) Units/L ALT 9 (0-55) Units/L Alkaline Phosphatase 152 H (38-126) Units/L Troponin I 0.00 (0-0.03) ng/mL B-Natriuretic Peptide (0-100) pg/mL Serum Total Protein 6.0 (6.0-8.3) g/dL Albumin 2.8 L (3.5-5.0) g/dL Globulin 3.2 (2.4-3.5) g/dL Albumin/Globulin Ratio 0.9 L (1.1-2.2) Urine Color (Yellow) Urine Clarity (Clear) Urine pH (5.0-8.0) pH Units Ur Specific [place] (1.010-1.025) Urine Protein (Neg-Trace) mg/dL Urine Glucose (UA) (Normal) mg/dL Urine Ketones (Negative) mg/dL Urine Blood (Negative) Urine Nitrite (Negative) Urine Bilirubin (Negative) Urine Urobilinogen (Normal) mg/dL Ur Leukocyte Esterase (Negative) Ur Culture Indicated? (NO) Urine Opiates Screen (Mzrkkf=357) ng/mL Ur Barbiturates Screen (Uqehzp=664) ng/mL Ur Phencyclidine Scrn (Cutoff=25) ng/mL Ur Amphetamines Screen (Hmhbgj=8221) ng/mL U Benzodiazepines Scrn (Rsktng=243) ng/mL Urine Cocaine Screen (Cutoff= 300) ng/mL U Marijuana (THC) Screen (Cutoff = 50) ng/mL Ethyl Alcohol < 10 (0-10) mg/dL 12/12/16 12/12/16 12/13/16 Range/Units 22:42 22:42 Unknown WBC (4.3-11.1) K/mcL RBC (3.82-4.97) M/mcL Hgb (11.5-15.4) g/dL Hct (35.3-44.9) % MCV (83.0-100.0) fL MCH (28.0-33.3) pg MCHC (31.6-35.5) g/dL RDW (11.5-14.5) % Plt Count (140-400) K/mcL MPV (9.4-12.4) fL Immature Gran % (0-4) % Seg Neutrophils % % Lymphocytes % % Monocytes % % Eosinophils % % Basophils % % Neutrophils # (1.6-8.9) K/mcL Lymphocytes # (0.6-4.6) K/mcL Monocytes # (0.0-1.3) K/mcL Eosinophils # (0.0-0.6) K/mcL Basophils # (0.0-0.2) K/mcL PT (9.4-12.1) Seconds INR APTT (26.0-36.0) Seconds D-Dimer (0-500) ng/mLFEU Sodium (136-145) mEq/L Potassium (3.5-4.5) mEq/L Chloride (98-109) mEq/L Carbon Dioxide (19-29) mEq/L BUN (7-20) mg/dL Creatinine (0.57-1.11) mg/dL Est GFR ( Amer) (> 60) Est GFR (Non-Af Amer) (> 60) BUN/Creatinine Ratio (6-26) Glucose (70-99) mg/dL POC Glucose (58-89) Calculated Osmolality (280-300) Lactic Acid 2.4 H (0.5-2.2) mmol/L Calcium (8.6-10.8) mg/dL Total Bilirubin (0.2-1.2) mg/dL Direct Bilirubin (0.0-0.5) mg/dL Indirect Bilirubin (0.0-1.2) mg/dL AST (5-34) Units/L ALT (0-55) Units/L Alkaline Phosphatase (38-126) Units/L Troponin I (0-0.03) ng/mL B-Natriuretic Peptide < 10 (0-100) pg/mL Serum Total Protein (6.0-8.3) g/dL Albumin (3.5-5.0) g/dL Globulin (2.4-3.5) g/dL Albumin/Globulin Ratio (1.1-2.2) Urine Color Yellow (Yellow) Urine Clarity Clear (Clear) Urine pH 6.0 (5.0-8.0) pH Units Ur Specific [place] 1.015 (1.010-1.025) Urine Protein Negative (Neg-Trace) mg/dL Urine Glucose (UA) Normal (Normal) mg/dL Urine Ketones Negative (Negative) mg/dL Urine Blood Negative (Negative) Urine Nitrite Negative (Negative) Urine Bilirubin Negative (Negative) Urine Urobilinogen Normal (Normal) mg/dL Ur Leukocyte Esterase Negative (Negative) Ur Culture Indicated? NO (NO) Urine Opiates Screen (Blcdje=127) ng/mL Ur Barbiturates Screen (Wslnja=702) ng/mL Ur Phencyclidine Scrn (Cutoff=25) ng/mL Ur Amphetamines Screen (Sgmrfg=4221) ng/mL U Benzodiazepines Scrn (Tbduax=149) ng/mL Urine Cocaine Screen (Cutoff= 300) ng/mL U Marijuana (THC) Screen (Cutoff = 50) ng/mL Ethyl Alcohol (0-10) mg/dL 12/13/16 Range/Units Unknown WBC (4.3-11.1) K/mcL RBC (3.82-4.97) M/mcL Hgb (11.5-15.4) g/dL Hct (35.3-44.9) % MCV (83.0-100.0) fL MCH (28.0-33.3) pg MCHC (31.6-35.5) g/dL RDW (11.5-14.5) % Plt Count (140-400) K/mcL MPV (9.4-12.4) fL Immature Gran % (0-4) % Seg Neutrophils % % Lymphocytes % % Monocytes % % Eosinophils % % Basophils % % Neutrophils # (1.6-8.9) K/mcL Lymphocytes # (0.6-4.6) K/mcL Monocytes # (0.0-1.3) K/mcL Eosinophils # (0.0-0.6) K/mcL Basophils # (0.0-0.2) K/mcL PT (9.4-12.1) Seconds INR APTT (26.0-36.0) Seconds D-Dimer (0-500) ng/mLFEU Sodium (136-145) mEq/L Potassium (3.5-4.5) mEq/L Chloride (98-109) mEq/L Carbon Dioxide (19-29) mEq/L BUN (7-20) mg/dL Creatinine (0.57-1.11) mg/dL Est GFR ( Amer) (> 60) Est GFR (Non-Af Amer) (> 60) BUN/Creatinine Ratio (6-26) Glucose (70-99) mg/dL POC Glucose (58-89) Calculated Osmolality (280-300) Lactic Acid (0.5-2.2) mmol/L Calcium (8.6-10.8) mg/dL Total Bilirubin (0.2-1.2) mg/dL Direct Bilirubin (0.0-0.5) mg/dL Indirect Bilirubin (0.0-1.2) mg/dL AST (5-34) Units/L ALT (0-55) Units/L Alkaline Phosphatase (38-126) Units/L Troponin I (0-0.03) ng/mL B-Natriuretic Peptide (0-100) pg/mL Serum Total Protein (6.0-8.3) g/dL Albumin (3.5-5.0) g/dL Globulin (2.4-3.5) g/dL Albumin/Globulin Ratio (1.1-2.2) Urine Color (Yellow) Urine Clarity (Clear) Urine pH (5.0-8.0) pH Units Ur Specific [place] (1.010-1.025) Urine Protein (Neg-Trace) mg/dL Urine Glucose (UA) (Normal) mg/dL Urine Ketones (Negative) mg/dL Urine Blood (Negative) Urine Nitrite (Negative) Urine Bilirubin (Negative) Urine Urobilinogen (Normal) mg/dL Ur Leukocyte Esterase (Negative) Ur Culture Indicated? (NO) Urine Opiates Screen Positive H (Ebqkla=166) ng/mL Ur Barbiturates Screen Negative (Vjfbhd=035) ng/mL Ur Phencyclidine Scrn Negative (Cutoff=25) ng/mL Ur Amphetamines Screen Negative (Lgqnup=8300) ng/mL U Benzodiazepines Scrn Positive H (Hvloij=451) ng/mL Urine Cocaine Screen Negative (Cutoff= 300) ng/mL U Marijuana (THC) Screen Positive H (Cutoff = 50) ng/mL Ethyl Alcohol (0-10) mg/dL - EKG Data EKG attestation: Yes I reviewed and interpreted this EKG. EKG results narrative: NSR with rate of 97. NO STEMI. normal intevals. no old ekg 2227 TPA Checklist - LKW: 3-4.5 hrs Add. Warnings/Precautions Patient/family understanding: The patient/family members have been counseled and understood the risk, benefit , and alternatives of treatment.
[2016-12-12 22:52] LABS: Basophils % 0.2 %; Eosinophils # 0.2 K/mcL (0.0-0.6); Eosinophils % 1.4 %; Hematocrit 37.1 % (35.3-44.9); Hemoglobin 11.7 g/dL (11.5-15.4); Immature Granulocytes % 0.3 % (0-4); Lymphocytes # 2.9 K/mcL (0.6-4.6); Lymphocytes % 27.6 %; Mean Corpuscular HGB Conc 31.5 g/dL (31.6-35.5); Mean Corpuscular Volume 88.8 fL (83.0-100.0); Mean Platelet Volume 11.1 fL (9.4-12.4); Monocytes # 0.9 K/mcL (0.0-1.3); Monocytes % 8.3 %; Neutrophils # 6.6 K/mcL (1.6-8.9); Platelet Count 406 K/mcL (140-400); Red Blood Count 4.18 M/mcL (3.82-4.97); Red Cell Distribution Width 16.3 % (11.5-14.5); Segmented Neutrophils % 62.2 %
[2016-12-12 22:59] LABS: INR 1.1
[2016-12-12 23:02] LABS: Activated Partial Thrombo Time 32.8 Seconds (26.0-36.0)
[2016-12-12 23:06] LABS: Alanine Aminotransferase 9 Units/L (0-55); Albumin 2.8 g/dL (3.5-5.0); Albumin/Globulin Ratio 0.9 (1.1-2.2); Alkaline Phosphatase 152 Units/L (38-126); Aspartate Amino Transferase 13 Units/L (5-34); BUN/Creatinine Ratio 5 (6-26); Bilirubin,Direct 0.1 mg/dL (0.0-0.5); Bilirubin,Indirect 0.2 mg/dL (0.0-1.2); Calcium 9.1 mg/dL (8.6-10.8); Carbon Dioxide 26 mEq/L (19-29); Chloride 102 mEq/L (98-109); Globulin 3.2 g/dL (2.4-3.5); Glucose 95 mg/dL (70-99); Osmolality,Calculated 281 (280-300); Potassium 3.5 mEq/L (3.5-4.5); Sodium 137 mEq/L (136-145); eGFR For African Americans > 60 (> 60); eGFR For Non-African Americans > 60 (> 60)
[2016-12-12 23:09] LABS: Bilirubin,Total < 0.3 mg/dL (0.2-1.2); Blood Urea Nitrogen 4 mg/dL (7-20); Ethanol < 10 mg/dL (0-10)
[2016-12-12] MEDS ORDERED: 0.9 % Sodium Chloride 1,000 ML IVC ONE (23:11)
[2016-12-13 00:17] LABS: Bilirubin,Urine Negative (Negative); Blood,Urine Negative (Negative); Clarity,Urine Clear (Clear); Color,Urine Yellow (Yellow); Glucose,Urine (UA) Normal (Normal); Ketones,Urine Negative (Negative); Leukocyte Esterase,Urine Negative (Negative); Nitrite,Urine Negative (Negative); Protein,Urine Negative (Neg-Trace); Specific Gravity,Urine 1.015 (1.010-1.025); Urobilinogen,Urine Normal (Normal)
[2016-12-13 00:24] LABS: Amphetamine Screen,Urine Negative ng/mL (Cutoff=1000); Barbiturate Screen,Urine Negative ng/mL (Cutoff=200); Benzodiazepines Screen,Urine Positive ng/mL (Cutoff=200); Cannabinoid Screen,Urine Positive ng/mL (Cutoff = 50); Cocaine Screen,Urine Negative ng/mL (Cutoff= 300); Opiate Screen,Urine Positive ng/mL (Cutoff=300); Phencyclidine Screen,Urine Negative ng/mL (Cutoff=25)
[2016-12-13] MEDS ORDERED: Levofloxacin 750 MG/150 ML 750 MG/150 ML BAG IVPB ONE (00:25)
[2016-12-13] MEDS ORDERED: methylPREDNISolone 125 MG in 0.9 % Sodium Chloride 100 ML IVPB ONE (00:28)
[2016-12-13] MEDS ORDERED: Ipratropium/Albuterol Neb 3 ML IH ONE (00:28)
[2016-12-13] MEDS ORDERED: 0.9 % Sodium Chloride 1,000 ML IVC ONE (00:40)
[2016-12-13] MEDS ORDERED: methylPREDNISolone 125 MG/2 ML VIAL IVP ONE (00:43)
[2016-12-13] MEDS ORDERED: Naloxone 0.4 MG/ML INJ IVP PRN (02:54)
[2016-12-13] MEDS ORDERED: Acetaminophen 325 MG TABLET PO PRN (02:54)
[2016-12-13] MEDS ORDERED: Ipratropium/Albuterol Neb 3 ML IH PRN (03:14)
--- NOTE | 2016-12-13 03:41 | Internal Med History&Physical ---
Date of Encounter: 12/13/16 Time of Encounter: 02:00 Assessment and Plan (1) Parkinson disease Current visit: Yes Status: Acute Patient is following neurology as outpatient. (2) Syncope Current visit: Yes Status: Acute patient has syncope. Etiology is undetermined. - Patient is on multiple neuro psycho medication. Her urine toxic screen is positive for multiple drugs. Possibly caused by multi pharmacy. - Her BP is at the lower side. Will check orthostatic vitals. - Place patient on continuous cardiac monitoring to rule out arrhythmia. - Patient had recent echo and CTA of neck in August, results reviewed, unremarkable. Qualifiers: Syncope type: vasovagal syncope Qualified Code(s): R55 - Syncope and collapse (3) DVT prophylaxis Current visit: No Status: Acute Heparin subcutaneously (4) Tobacco abuse Current visit: No Status: Chronic Smoking cessation education. Place patient on nicotine patch (5) COPD with acute exacerbation Current visit: Yes Status: Acute Patient has wheezes bilaterally, right > left. She has history of COPD. She is a current smoker. - Consider mild COPD exacerbation. - Continue antibiotics, steroids, and bronchodilator. - Closely monitor patient. (6) History of CVA (cerebrovascular accident) Current visit: Yes Status: Acute Continue aspirin and statin. Internal Medicine - H&P: HPI Chief complaint: Syncope Admitted From: Home Plans for Post Hospital Care: Home History of present illness: Ms. Spence is a 56 year old female with history of COPD, Parkinson disease, chronic pain, history of CVA present to ER for syncope and dizziness. Patient said she has dizziness for 3 days, near syncope, and did lost consciousness for several seconds yesterday. She denies body injury. She denies symptoms of vertigo. Patient denies palpitation, nausea, or chest pain. She has shortness of breath with a dry cough for about 3 weeks. Patient has no fever. She has one episode of diarrhea, which is watery. Patient denies urination symptoms. Patient was found wheezing in the emergency room, she was treated with antibiotics, steroids, and bronchodilator in emergency room. She was admitted for further management. I have discussed CODE STATUS with patient. She is full code. Past Med Surg Social Fam HX - Past Medical History Medical history: COPD, GERD, hyperlipidemia, myocardial infarction, seizures, thyroid disease Psychiatric history: anxiety, bipolar, depression - Past Surgical History Surgical History: , cholecystectomy, hysterectomy, other - Social History Smoking Status: Current every day smoker Smokeless Tobacco Status: No Alcohol use: none Drug use: marijuana - Family History Mother Hx Family Cardiac Disorders: Yes Internal Medicine - H&P: Meds Benztropine [Cogentin] 1 mg PO HS 02/17/15 [History] Cholecalciferol (Vitamin D3) [Vitamin D] 1,000 mg PO DAILY 02/17/15 [History] Diazepam [Valium] 7 mg PO BID 02/17/15 [History] Omeprazole [PriLOSEC] 40 mg PO DAILY 02/17/15 [History] Pravastatin Sodium [Pravachol] 40 mg PO HS 02/17/15 [History] Pregabalin [Lyrica] 100 mg PO TID 02/17/15 [History] Albuterol Sulfate [Proair Hfa] 2 puff IH QID PRN 07/20/16 [History] Budesonide/Formoterol 160/4.5 [Symbicort 160/4.5] 2 puff IH BIDR 07/20/16 [ History] Doxepin HCl 10 mg PO TID 07/20/16 [History] lamoTRIgine [Lamotrigine] 200 mg PO QAM 07/20/16 [History] Albuterol Neb [Proventil Neb] 2.5 mg IH TID PRN 09/15/16 [History] Lurasidone HCl [Latuda] 120 mg PO DAILY 09/15/16 [History] Oxycodone HCl 10 mg PO Q6H PRN 09/15/16 [History] Trazodone HCl 200 mg PO HS 09/15/16 [History] rOPINIRole [Requip] 1 mg PO DAILY 09/15/16 [History] Aspirin Enteric Coated [Aspirin EC] 81 mg PO DAILY #30 tablet. 10/10/16 [Rx] Clindamycin HCl 300 mg PO QID #20 capsule 10/10/16 [Rx] Metoprolol [Lopressor] 12.5 mg PO BID #30 tablet 10/10/16 [Rx] Allergies Erythromycin Base Allergy (Verified 10/08/16 14:14) Swelling of Lip/Tongue/Throat hydroxyzine [From Vistaril] Allergy (Verified 10/08/16 14:14) See Comments MUSCLE SPASMS "MESSED ME ALL UP" Penicillins Allergy (Verified 10/08/16 14:14) Swelling of Lip/Tongue/Throat All Systems PM: A 10-system review of systems was performed and is negative for pertinent findings except as documented above in the HPI. - Constitutional Vitals: Temp Pulse Resp BP Pulse Ox 98.8 F 79 20 104/82 89 12/12/16 22:27 12/13/16 01:00 12/13/16 02:28 12/13/16 02:28 12/13/16 01:00 General appearance: Present: A&O X 3, no acute distress, answers questions appropriately - Head Head exam: Present: atraumatic, normocephalic - Eye Eye exam: Present: PERRL, conjuntiva pink, sclera anicteric Pupils: Present: PERRL - Neck Neck exam general surgery: Present: supple, trachea midline. Absent: lymphadenopathy - Respiratory Respiratory exam: Present: CTAB, wheezes (Diffused wheezes bilaterally.). Absent: accessory muscle use, rales, rhonchi - Cardiovascular Cardiovascular exam: Present: RRR, +S1, +S2. Absent: diastolic murmur, gallop, rubs, systolic murmur - GI/Abdominal GI/Abdominal exam: Present: normal bowel sounds, soft, no peritoneal signs. Absent: distended, tenderness - Extremities Exam Extremities exam: Present: warm, radial pulses palpable and symmetrical. Absent : calf tenderness, cyanotic, pedal edema - Neurological Exam Neurological exam: Present: CN II-XII intact, oriented X3, no focal deficits. Absent: pronater drift, facial droop, speech deficit Additional comments: Patient has resting tremor - Skin Skin exam: Present: dry, intact Internal Med - H&P Results - Labs CBC & Chem 7: 12/12/16 22:42 12/12/16 22:42 Labs: Urine 12/13/16 Range/Units Unknown Urine Color Yellow (Yellow) Urine Clarity Clear (Clear) Urine pH 6.0 (5.0-8.0) pH Units Ur Specific [place] 1.015 (1.010-1.025) Urine Protein Negative (Neg-Trace) mg/dL Urine Glucose (UA) Normal (Normal) mg/dL - EKG Data -: EKG Interpreted by Myself EKG shows normal: sinus rhythm Rate: normal
[2016-12-13 04:07] LABS: ABG Base Excess 1.3 mEq/L (-2.0 to 3.0); ABG HCO3 28.3 mEQ/L (21-27); ABG Oxygen Saturation 87 % (95-98); ABG PCO2 55 mmHg (35-45); ABG PH 7.32 pH Units (7.32-7.45); ABG PO2 58 mmHg (85-104); Blood Gas FiO2 40 %; Blood Gas Liter Flow 5 L/MIN
[2016-12-13] MEDS: Ipratropium/Albuterol Neb 3 ML IH SCH ×6 (04:07→22:59)
[2016-12-13] MEDS: *HR* Heparin 5,000 UNIT/ML VIAL SQ SCH ×2 (06:12→17:40)
[2016-12-13 06:54] LABS: Basophils % 0.3 %; Hematocrit 36.6 % (35.3-44.9); Hemoglobin 11.6 g/dL (11.5-15.4); Immature Granulocytes % 0.4 % (0-4); Lymphocytes # 0.5 K/mcL (0.6-4.6); Lymphocytes % 6.3 %; Mean Corpuscular HGB Conc 31.7 g/dL (31.6-35.5); Mean Corpuscular Hemoglobin 28.5 pg (28.0-33.3); Mean Corpuscular Volume 89.9 fL (83.0-100.0); Mean Platelet Volume 11.5 fL (9.4-12.4); Monocytes # 0.1 K/mcL (0.0-1.3); Monocytes % 0.6 %; Neutrophils # 7.2 K/mcL (1.6-8.9); Platelet Count 385 K/mcL (140-400); Red Blood Count 4.07 M/mcL (3.82-4.97); Red Cell Distribution Width 16.4 % (11.5-14.5); Segmented Neutrophils % 92.4 %
[2016-12-13 07:09] LABS: BUN/Creatinine Ratio 3 (6-26); Calcium 8.7 mg/dL (8.6-10.8); Carbon Dioxide 27 mEq/L (19-29); Chloride 107 mEq/L (98-109); Glucose 153 mg/dL (70-99); Magnesium 1.8 mg/dL (1.6-2.6); Osmolality,Calculated 294 (280-300); Potassium 3.6 mEq/L (3.5-4.5); Sodium 142 mEq/L (136-145); eGFR For African Americans > 60 (> 60); eGFR For Non-African Americans > 60 (> 60)
[2016-12-13 07:24] LABS: Blood Urea Nitrogen 3 mg/dL (7-20)
[2016-12-13] MEDS: Budesonide/Formoterol 160/4.5 MDI IH SCH ×2 (07:44→20:25)
[2016-12-13] MEDS ORDERED: diazePAM 5 MG TABLET PO SCH (09:00)
[2016-12-13] MEDS: diazePAM 5 MG TABLET PO SCH ×2 (09:32→21:37)
[2016-12-13] MEDS: predniSONE 20 MG TABLET PO SCH (09:36)
[2016-12-13] MEDS: Pregabalin 50 MG CAPSULE PO SCH ×3 (09:37→20:12)
[2016-12-13] MEDS: lamoTRIgine 100 MG TABLET PO SCH (09:37)
[2016-12-13] MEDS: rOPINIRole 1 MG TABLET PO SCH (09:37)
[2016-12-13] MEDS: Nicotine 21 MG PATCH.TD24 TD SCH (09:37)
[2016-12-13] MEDS: Cholecalciferol (D-3) 1,000 UNIT TABLET PO SCH (09:37)
[2016-12-13] MEDS: Aspirin Enteric Coated 81 MG Tablet PO SCH (09:37)
[2016-12-13] MEDS: DOXEPIN 10 MG PO SCH ×3 (09:37→20:18)
[2016-12-13] MEDS: diazePAM 2 MG TABLET PO SCH ×2 (09:46→21:37)
--- NOTE | 2016-12-13 11:47 | Internal Med Progress Note ---
Date of Encounter: 12/13/16 Time of Encounter: 09:50 - Assessment and plan (1) Syncope Current Visit: Yes Status: Acute Assessment and plan: Pt reports that she had a syncopal episode 2 nights ago which promped her admission. Pt states that she has no recollection of the event, but states that her daughter told her that she fell down the stairs and was twitching. Pt had JOYCE in September, which showed normal LV size and function, normal systolic function, no evidence of PFO, normal valvular function. Pt had CTA or neck that showed no significant stenosis of either the right of left ICA. syncope could be due to polypharmacy. Drug screen was positive for opiates, benzodiazepines, and THC. She is prescribed Oxycontin and Valium for home. Continue telemetry and monitoring pt condition, labs ,and vitals. Qualifiers: Syncope type: vasovagal syncope Qualified Code(s): R55 - Syncope and collapse (2) Hyperlipidemia Current Visit: No Status: Chronic Assessment and plan: Chronic. Continue Pravachol. Qualifiers: Hyperlipidemia type: mixed hyperlipidemia Qualified Code(s): E78.2 - Mixed hyperlipidemia (3) Bipolar disorder Current Visit: No Status: Chronic Assessment and plan: Chronic. Continue home medications. Qualifiers: Active/Remission status: remission status unspecified Qualified Code(s): F31.9 - Bipolar disorder, unspecified (4) COPD (chronic obstructive pulmonary disease) Current Visit: No Status: Chronic Assessment and plan: Mild exacerbation. Pt denies recent change in inhaler use or increased SOB. Pt has faint expiratory wheezing in bilateral posterior bases. Continue Levaquin and Prednisone. Continue nebulizer treatments prn Monitor labs and vitals, including pulse ox Titrate 02 to maintain sats > 92%. Pt staets that she wears 2L 02 via nc at night only. Qualifiers: COPD type: unspecified COPD Qualified Code(s): J44.9 - Chronic obstructive pulmonary disease, unspecified (5) GERD (gastroesophageal reflux disease) Current Visit: Yes Status: Chronic Assessment and plan: Chronic. Continue home medications. Qualifiers: Esophagitis presence: esophagitis presence not specified Qualified Code(s) : K21.9 - Gastro-esophageal reflux disease without esophagitis (6) Tobacco abuse Current Visit: No Status: Chronic Assessment and plan: Pt states that she would like to have nicotine patches for home. Pt also states , " if I can bring my percocets home with me, that will help me stop, too." (7) Parkinson disease Current Visit: Yes Status: Acute Assessment and plan: Per history. Pt sees Dr. Mcdonnell. (8) History of CVA (cerebrovascular accident) Current Visit: Yes Status: Acute Assessment and plan: History. Continue ASA and statin . (9) DVT prophylaxis Current Visit: No Status: Acute Assessment and plan: Heparin SQ - Time Spent With Patient less than 15 minutes - Subjective Interval history: Pt was seen and assessed at 0950 this a.m. She is alert and oriented, speech is clear. She states that she feels better. She denies dizziness, but does report cough that is " a little worse" than normal. She denies chest pain, palpitations , nausea, vomiting, or diarrhea. No abd pain or headache. Pt agrees that she should stay another day for monitoring of her COPD mild exacerbation. - Constitutional Vitals: Temp Pulse Resp BP Pulse Ox 97.9 F 100 16 100/64 90 12/13/16 11:43 12/13/16 11:43 12/13/16 11:43 12/13/16 11:43 12/13/16 11:43 General appearance: Present: cooperative, A&O X 3, pleasant, no acute distress, answers questions appropriately - Head Head exam: Present: normal inspection - Eye Eye exam: Present: normal appearance, conjuntiva pink - ENT ENT exam: Present: mucous membranes moist, normal exam, normal external ear exam - Neck Neck exam general surgery: Present: normal inspection. Absent: lymphadenopathy , tenderness - Respiratory Respiratory exam: Present: decreased breath sounds, wheezes. Absent: chest wall tenderness, CTAB, rales, respiratory distress, rhonchi, stridor, tachypnea Additional comments: Faint end expiratory wheezing in bilateral posterior bases. - Cardiovascular Cardiovascular exam: Present: RRR, +S1, +S2. Absent: clicks, diastolic murmur, gallop, systolic murmur - GI/Abdominal GI/Abdominal exam: Present: distended, normal bowel sounds, soft. Absent: hernia, hepatomegaly, tenderness - Extremities Exam Extremities exam: Present: warm, radial pulses palpable and symmetrical. Absent : calf tenderness, joint swelling, pedal edema, tenderness - Neurological Exam Neurological exam: Present: alert, oriented X3, no focal deficits, strengths equal and symetr throughout. Absent: altered, facial droop, speech deficit - Skin Skin exam: Present: dry, intact, normal color, warm. Absent: rash Internal Medicine: Result - Labs CBC & Chem 7: 12/13/16 05:53 12/13/16 05:53 Labs: Short CBC 12/13/16 Range/Units 05:53 WBC 7.8 (4.3-11.1) K/mcL Hgb 11.6 (11.5-15.4) g/dL Hct 36.6 (35.3-44.9) % Plt Count 385 (140-400) K/mcL Neutrophils # 7.2 (1.6-8.9) K/mcL BMP 12/13/16 05:53 Sodium 142 Potassium 3.6 Chloride 107 Carbon Dioxide 27 BUN 3 L Creatinine 0.90 Glucose 153 H Calcium 8.7 Urine 12/13/16 Range/Units Unknown Urine Color Yellow (Yellow) Urine Clarity Clear (Clear) Urine pH 6.0 (5.0-8.0) pH Units Ur Specific [place] 1.015 (1.010-1.025) Urine Protein Negative (Neg-Trace) mg/dL Urine Glucose (UA) Normal (Normal) mg/dL - ABG Interpretation ABG results: ABG ABG pH 7.32 pH Units (7.32-7.45) 12/13/16 04:00 ABG pCO2 55 mmHg (35-45) H 12/13/16 04:00 ABG pO2 58 mmHg (85-104) L 12/13/16 04:00 ABG O2 Saturation 87 % (95-98) L 12/13/16 04:00 PT/INR, D-dimer PT 12.0 Seconds (9.4-12.1) 12/12/16 22:42 D-Dimer 826 ng/mLFEU (0-500) H 12/12/16 22:42 Consult Discharge Plan - Plan Referrals: Ceasar Arce MD [Primary Care Provider] -
--- NOTE | 2016-12-13 15:07 | Venous Imaging Report ---
LE Venous Duplex Patient Name:Candi Spence Order Number:[id number] Procedure Date:12/13/2016 Date:1960Age:56 yrs Gender:Female Location:[facility] ED Room #: ED1 Network Support:Gladis Colindres RDCS Referring MD:Kandy Kelly DO polls or surveys interviewer:None Reading MD:Mario Alberto Mora MD Primary Indications:r/o DVT, pain Secondary Indications: Impressions: Normal left lower extremity deep and superficial venous exam. Normal contralateral common femoral vein. Recommendations: Test completed on 12/13/2016 at 12:25:00 am. Critical findings reported to Dr. Kandy Kelly-ED in person at 12:25:00 am on 12/13/2016 by Gladis Colindres RDCS. Findings Prior Study: No prior study available for comparison. Lower Extremity Venous Duplex Side Vein Compress Spontaneous Flow Augment Diameter (cm) Depth (cm) Left Distal Iliac Normal Yes Phasic Yes Left Common Femoral Normal Yes Phasic Yes Left Superficial Femoral Normal Yes Phasic Yes Left Popliteal Normal Yes Phasic Yes Left Posterior Tibial Normal Yes Phasic Yes Left Peroneal Normal Yes Phasic Yes Left Saphenofemoral [place]unction Normal Yes Phasic Yes Left Great Saphenous Normal Yes Phasic Yes Left Lesser Saphenous Normal Yes Phasic Yes Right Common Femoral Normal Yes Phasic Yes Updated by Mario Alberto Mora MD on 12/13/2016 2:59:34 PM electronically signed on 12/13/2016 3:01:10 PM with status of Final
[2016-12-13] MEDS ORDERED: 0.9 % Sodium Chloride 500 ML IVC ONE (17:13)
[2016-12-13] MEDS: 0.9 % Sodium Chloride 1,000 ML IVC SCH (17:40)
[2016-12-13] MEDS ORDERED: traZODone 50 MG TABLET PO SCH (21:00)
[2016-12-14] MEDS: Ipratropium/Albuterol Neb 3 ML IH SCH ×4 (04:14→15:15)
[2016-12-14] MEDS: 0.9 % Sodium Chloride 1,000 ML IVC SCH ×2 (04:47→15:59)
[2016-12-14] MEDS: *HR* Heparin 5,000 UNIT/ML VIAL SQ SCH (05:30)
[2016-12-14] MEDS: Budesonide/Formoterol 160/4.5 MDI IH SCH (07:43)
--- NOTE | 2016-12-14 08:09 | Electrocardiograph Report ---
[place] [id number] Test Date: 2016-12-12 Pat Name: July Department: 104 Room: 3B41 Gender: F [employer] Supervisor: MARTHA : 1960 Requested By: Kandy Kelly Order Number: [id number] Reading MD: Seferino Downs MD Measurements Intervals [place] Rate: 97 P: 29 AR: 151 QRS: 28 QRSD: 86 T: 39 QT: 338 QTc: 393 Interpretive Statements SINUS RHYTHM Electronically Signed On 12-14-2016 8:07:05 EDT by Seferino Downs MD
[2016-12-14] MEDS: Nicotine 21 MG PATCH.TD24 TD SCH (08:46)
[2016-12-14] MEDS: Pregabalin 50 MG CAPSULE PO SCH ×2 (08:46→15:59)
[2016-12-14] MEDS: Cholecalciferol (D-3) 1,000 UNIT TABLET PO SCH (08:47)
[2016-12-14] MEDS: predniSONE 20 MG TABLET PO SCH (08:47)
[2016-12-14] MEDS: rOPINIRole 1 MG TABLET PO SCH (08:48)
[2016-12-14] MEDS: lamoTRIgine 100 MG TABLET PO SCH (08:48)
[2016-12-14] MEDS: diazePAM 5 MG TABLET PO SCH (08:48)
[2016-12-14] MEDS: Aspirin Enteric Coated 81 MG Tablet PO SCH (08:48)
[2016-12-14] MEDS: DOXEPIN 10 MG PO SCH ×2 (08:48→16:00)
[2016-12-14] MEDS: diazePAM 2 MG TABLET PO SCH (08:50)
[2016-12-14] MEDS ORDERED: Levofloxacin 750 MG/150 ML 750 MG/150 ML BAG IVPB SCH (09:00)
[2016-12-14 15:12] LABS: Basophils % 0.1 %; Hematocrit 35.6 % (35.3-44.9); Hemoglobin 11.3 g/dL (11.5-15.4); Immature Granulocytes % 0.7 % (0-4); Lymphocytes # 0.8 K/mcL (0.6-4.6); Lymphocytes % 5.2 %; Mean Corpuscular HGB Conc 31.7 g/dL (31.6-35.5); Mean Corpuscular Volume 88.3 fL (83.0-100.0); Monocytes # 0.3 K/mcL (0.0-1.3); Monocytes % 1.9 %; Platelet Count 362 K/mcL (140-400); Red Blood Count 4.03 M/mcL (3.82-4.97); Red Cell Distribution Width 16.8 % (11.5-14.5); Segmented Neutrophils % 92.1 %
[2016-12-14 15:13] LABS: Neutrophils # 13.3 K/mcL (1.6-8.9)
[2016-12-14 15:25] LABS: BUN/Creatinine Ratio 6 (6-26); Calcium 9.2 mg/dL (8.6-10.8); Carbon Dioxide 26 mEq/L (19-29); Chloride 110 mEq/L (98-109); Glucose 120 mg/dL (70-99); Osmolality,Calculated 292 (280-300); Potassium 4.1 mEq/L (3.5-4.5); Sodium 142 mEq/L (136-145); eGFR For African Americans > 60 (> 60); eGFR For Non-African Americans > 60 (> 60)
[2016-12-14 15:26] LABS: Blood Urea Nitrogen 5 mg/dL (7-20)
[2016-12-14 15:48] VITALS: BP 136/50
--- NOTE | 2016-12-14 15:57 | Discharge Summary ---
Date of Encounter: 12/14/16 Time of Encounter: 15:25 - Discharge Diagnosis (1) Syncope Priority: Primary Status: Acute Comments: Pt denies any more syncopal episodes, dizziness, lightheadedness, n/v. Imaging and testing have been negative. Most likely reaction to polypharmacy, pt takes opiates, benzodiazepines, and had THC on her drug screen. She ambulated with community living instructor and did well, no dizziness or lightheadedness, gait was steady. Qualifiers: Syncope type: vasovagal syncope Qualified Code(s): R55 - Syncope and collapse (2) Hyperlipidemia Priority: Secondary Status: Chronic Comments: Chronic. Continue Pravachol. Qualifiers: Hyperlipidemia type: mixed hyperlipidemia Qualified Code(s): E78.2 - Mixed hyperlipidemia (3) Bipolar disorder Priority: Secondary Status: Chronic Comments: Chronic. Continue home medications. Qualifiers: Active/Remission status: remission status unspecified Qualified Code(s): F31.9 - Bipolar disorder, unspecified (4) COPD (chronic obstructive pulmonary disease) Priority: Secondary Status: Chronic Comments: Pt with mild exacerbation, Pt has faint wheezing in bilateral bases. Pt tolerates ambulating in hallway well, sats stay above 89%. Continue prednisone and Levaquin for home. Pt has 3L 02 at home that she wears at night, but can use prn. Continue home medications. Qualifiers: COPD type: unspecified COPD Qualified Code(s): J44.9 - Chronic obstructive pulmonary disease, unspecified (5) GERD (gastroesophageal reflux disease) Priority: Secondary Status: Chronic Comments: Chronic. Continue home medications. Qualifiers: Esophagitis presence: esophagitis presence not specified Qualified Code(s) : K21.9 - Gastro-esophageal reflux disease without esophagitis (6) Tobacco abuse Priority: Secondary Status: Chronic Comments: Nicotine patches for home. (7) Parkinson disease Priority: Secondary Status: Chronic Comments: Chronic. Per history. Follow with Dr. Mcdonnell as scheduled . (8) History of CVA (cerebrovascular accident) Priority: Secondary Status: Chronic (9) DVT prophylaxis Priority: Secondary Status: Acute Comments: Heparin SQ. Pt up to chair prn. - Discharge Medications Prescriptions: Levofloxacin [Levaquin] 500 mg PO DAILY #7 tablet predniSONE [PredniSONE] 10 mg PO DAILY #27 tablet Home Medications: Benztropine [Cogentin] 2 mg PO HS 02/17/15 [History] Cholecalciferol (Vitamin D3) [Vitamin D] 1,000 mg PO DAILY 02/17/15 [History] Diazepam [Valium] 7 mg PO BID 02/17/15 [History] Omeprazole [PriLOSEC] 40 mg PO DAILY 02/17/15 [History] Pravastatin Sodium [Pravachol] 40 mg PO HS 02/17/15 [History] Pregabalin [Lyrica] 100 mg PO TID 02/17/15 [History] Albuterol Sulfate [Proair Hfa] 2 puff IH QID PRN 07/20/16 [History] Budesonide/Formoterol 160/4.5 [Symbicort 160/4.5] 2 puff IH BIDR 07/20/16 [ History] Doxepin HCl 10 mg PO TID 07/20/16 [History] lamoTRIgine [Lamotrigine] 200 mg PO QAM 07/20/16 [History] Albuterol Neb [Proventil Neb] 2.5 mg IH TID PRN 09/15/16 [History] Lurasidone HCl [Latuda] 120 mg PO DAILY 09/15/16 [History] Oxycodone HCl 10 mg PO Q6H PRN 09/15/16 [History] Trazodone HCl 200 mg PO HS 09/15/16 [History] rOPINIRole [Requip] 1 mg PO DAILY 09/15/16 [History] Aspirin Enteric Coated [Aspirin EC] 81 mg PO DAILY #30 tablet. 10/10/16 [Rx] Metoprolol [Lopressor] 12.5 mg PO BID #30 tablet 10/10/16 [Rx] Magnesium Oxide [Mgo] 400 mg PO BID 12/13/16 [History] Mometasone/Formoterol [Dulera 100 Mcg/5 Mcg Inhaler] 2 puff IH BID 12/13/16 [ History] Levofloxacin [Levaquin] 500 mg PO DAILY #7 tablet 12/14/16 [Rx] predniSONE [PredniSONE] 10 mg PO DAILY #27 tablet 12/14/16 [Rx] Allergies/Adverse Reactions: Allergies Erythromycin Base Allergy (Verified 10/08/16 14:14) Swelling of Lip/Tongue/Throat hydroxyzine [From Vistaril] Allergy (Verified 10/08/16 14:14) See Comments MUSCLE SPASMS "MESSED ME ALL UP" Penicillins Allergy (Verified 10/08/16 14:14) Swelling of Lip/Tongue/Throat Date of admission: 12/13/16 01:49 Primary care physician: Ceasar Arce MD Consults: 12/14/16 12:10 Consult to Picking Machine Operator [CONS] Routine Reason for SW Consult: [facility], needs home oxygen Discharging clinician: Kat Champion Anticipated date of discharge: 12/14/16 - Patient Status Disposition: Home, Self-Care Functional capacity at discharge: uses cane/walker Overall status at discharge: patient is progressing back to baseline - Discharge Instructions Follow Up With: Ceasar Arce MD [Primary Care Provider] - Additional Instructions: Start your steroid and antibiotics tomorrow. I have called them into [facility]. Wear your 02 at night. Stay indoors during the heat of the day. Follow up with your PCP in the next 7-10 days for a recheck. Continue your other home medications as you normally would. Return to the ER for any other problems or concerns or if your symptoms return or worsen. - Diet and Activity Activity: ambulate only with your walker, wear oxygen at night Diet: advance to your usual diet Hospital course: Ms. Spence is a 56 year old female with past medical history of CVA, hyperlipidemia, bipolar disorder, COPD, GERD, anxiety, tobacco abuse, pneumonia , chronic respiratory failure with hypoxia and O2 use, recurrent falls,, and Parkinson's disease. She presented to the emergency department on December 12 with complaints of altered mental status and increasing shortness of breath. She states that she had had intermittent confusion and it was becoming worse. There is no family with her in the emergency department to provide extra information or verify patient's history. She was admitted for syncopal episode. Patient reports her daughter told her she fell down and was jerking and twitching for about a minute. She denies any bodily injury and denies any symptoms of vertigo. Patient states that it happened a little once and she denies palpitations, nausea, chest pain, dizziness at the time of the event. She reports shortness of breath and dry cough for about 3 weeks and denies fevers at home. She denies urinary symptoms she was also admitted for acute exacerbation of COPD with wheezing and increased oxygen demand. She was treated with antibiotics, steroids, bronchodilators. Patient has had no more syncopal episodes. This is most likely due to polypharmacy. Her drug screen was positive for THC, opiates, and benzodiazepines. Patient remained on audio visual collections coordinator without any difficulties. Patient I discussed smoking cessation and she is going to go home with a prescription for nicotine patches. Patient ambulated easily in the hallway, community living instructor who walked her said that she did very well on her sats stayed above 89%. Her lungs are diminished with faint wheezing posteriorly. Patient states that she feels significantly better than she did on arrival. She will be sent home with Levaquin and prednisone taper. She denies need for refills on nebulizer treatments or inhalers. D-dimer was elevated at 826, chest CT was negative for presence of PE, no pulmonary infiltrate, ground glass density for which infectious, inflammatory process could not be excluded. Venous duplex was negative for DVT in left lower extremity. Patient with elevated lactic acid abdomen pelvis CT showed no evidence of acute intra-abdominal inflammatory process or fluid collection. Lactic acid level is decreasing. Patient states that she feels better and is ready to go home. She states that she has returned to baseline and denies chest pain, abdominal pain, headache. White count is mildly elevated, most likely due to steroids, she is not tachycardic or hypotensive. Urine is negative and blood cultures were negative 2. Labs and vital signs are stable and within normal limits. Patient is ready for discharge. She will go home with home health, she also has family who is helpful and nearby. - Time Spent with Patient Total time spent providing and/or coordinating discharge services: Less than 30 minutes - Constitutional Vitals: Temp Pulse Resp BP Pulse Ox 97.6 F 77 15 136/50 95 12/14/16 15:44 12/14/16 15:44 12/14/16 15:44 12/14/16 15:44 12/14/16 15:44 General appearance: Present: cooperative, A&O X 3, pleasant, no acute distress, answers questions appropriately - Head Head exam: Present: normal inspection - Eye Eye exam: Present: normal appearance, conjuntiva pink - ENT ENT exam: Present: mucous membranes moist, normal exam, normal external ear exam - Respiratory Respiratory exam: Present: decreased breath sounds, wheezes. Absent: chest wall tenderness, CTAB, rales, respiratory distress, rhonchi, stridor - Cardiovascular Cardiovascular exam: Present: RRR, +S1, +S2. Absent: clicks, diastolic murmur, gallop, systolic murmur - GI/Abdominal GI/Abdominal exam: Present: normal bowel sounds, soft. Absent: distended, hernia, tenderness - Extremities Exam Extremities exam: Present: warm, radial pulses palpable and symmetrical. Absent : pedal edema, tenderness - Neurological Exam Neurological exam: Present: alert, oriented X3, no focal deficits. Absent: altered, facial droop, speech deficit - Skin Skin exam: Present: dry, intact, normal color, warm. Absent: rash, urticaria
--- NOTE | 2016-12-14 16:20 | Physician Discharge Referral ---
Home Health/Hosp Referral Info Transfer to: Home Health Provider in Charge Post Discharge: PCP - Diagnosis (1) Syncope Priority: Primary Status: Acute (2) Hyperlipidemia Priority: Secondary Status: Chronic (3) Bipolar disorder Priority: Secondary Status: Chronic (4) COPD (chronic obstructive pulmonary disease) Priority: Secondary Status: Chronic (5) GERD (gastroesophageal reflux disease) Priority: Secondary Status: Chronic (6) Tobacco abuse Priority: Secondary Status: Chronic (7) Parkinson disease Priority: Secondary Status: Chronic (8) History of CVA (cerebrovascular accident) Priority: Secondary Status: Chronic (9) DVT prophylaxis Priority: Secondary Status: Acute - Respiratory Orders Oxygen / L per min (3 liters at night) Smoking Cessation: Smoking cessation has been advised. For more information, call the [employer] Tobacco Quit Line at 2-659-FGIT-NOW. - Diet/Nutrition Diet/Nutrition Orders: Regular - Activity Activity Orders: Up ad donna - Services Needed Following services are medically necessary services: Nursing, Home Health Aide - Transfer Medications Prescriptions: Levofloxacin [Levaquin] 500 mg PO DAILY #7 tablet predniSONE [PredniSONE] 10 mg PO DAILY #27 tablet Home Medications: Benztropine [Cogentin] 2 mg PO HS 02/17/15 [History] Cholecalciferol (Vitamin D3) [Vitamin D] 1,000 mg PO DAILY 02/17/15 [History] Diazepam [Valium] 7 mg PO BID 02/17/15 [History] Omeprazole [PriLOSEC] 40 mg PO DAILY 02/17/15 [History] Pravastatin Sodium [Pravachol] 40 mg PO HS 02/17/15 [History] Pregabalin [Lyrica] 100 mg PO TID 02/17/15 [History] Albuterol Sulfate [Proair Hfa] 2 puff IH QID PRN 07/20/16 [History] Budesonide/Formoterol 160/4.5 [Symbicort 160/4.5] 2 puff IH BIDR 07/20/16 [ History] Doxepin HCl 10 mg PO TID 07/20/16 [History] lamoTRIgine [Lamotrigine] 200 mg PO QAM 07/20/16 [History] Albuterol Neb [Proventil Neb] 2.5 mg IH TID PRN 09/15/16 [History] Lurasidone HCl [Latuda] 120 mg PO DAILY 09/15/16 [History] Oxycodone HCl 10 mg PO Q6H PRN 09/15/16 [History] Trazodone HCl 200 mg PO HS 09/15/16 [History] rOPINIRole [Requip] 1 mg PO DAILY 09/15/16 [History] Aspirin Enteric Coated [Aspirin EC] 81 mg PO DAILY #30 tablet. 10/10/16 [Rx] Metoprolol [Lopressor] 12.5 mg PO BID #30 tablet 10/10/16 [Rx] Magnesium Oxide [Mgo] 400 mg PO BID 12/13/16 [History] Mometasone/Formoterol [Dulera 100 Mcg/5 Mcg Inhaler] 2 puff IH BID 12/13/16 [ History] Levofloxacin [Levaquin] 500 mg PO DAILY #7 tablet 12/14/16 [Rx] predniSONE [PredniSONE] 10 mg PO DAILY #27 tablet 12/14/16 [Rx] Allergies/Adverse Reactions: Allergies Erythromycin Base Allergy (Verified 10/08/16 14:14) Swelling of Lip/Tongue/Throat hydroxyzine [From Vistaril] Allergy (Verified 10/08/16 14:14) See Comments MUSCLE SPASMS "MESSED ME ALL UP" Penicillins Allergy (Verified 10/08/16 14:14) Swelling of Lip/Tongue/Throat Certification: Further, I certify that my clinical findings support that this patient is homebound (i.e. absences from home require considerable and taxing effort and are for medical reasons or druze services or infrequently or short duration when for other reasons) because: Homebound Reason: Patient requires assistance of a person or device to safely leave home, Leaving home requires considerable and taxing effort due to condition Attestation: My signature below is to certify that this patient is under my care and that I, or nurse practitioner, or a physician's promotions assistant working with me, has a face-to -face encounter with this patient.
--- NOTE | 2016-12-15 15:21 | Electrocardiograph Report ---
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
== END 2016-12-14 16:58 | disposition home or self-care (01) ==
LOC: 3BNU 22:24 → EMEROO 22:24 → 3BNU 12-13 02:45
PROVIDERS: ADMIT Internal Medicine; ATTEND Nurse Practitioner Family

== ENCOUNTER 2017-01-13 23:40 | Inpatient (IN) ==
--- NOTE | 2017-01-13 23:59 | Emergency Department Note ---
Disposition Clinical Impression: Lactic acidosis, Encephalopathy acute, Hypoxemia Leukocytosis Qualifiers: Leukocytosis type: unspecified Qualified Code(s): D72.829 - Elevated white blood cell count, unspecified Disposition: Admitted As Inpatient Condition: Critical Time of Disposition: 01:11 Altered Mental Status HPI - General Chief Complaint: ED Weakness Stated Complaint: WEAKNESS Time Seen by Provider: 01/13/17 23:59 Source: patient, EMS Limitations: no limitations Nursing Notes Reviewed: Yes Vital Signs Reviewed: Yes - History of Present Illness HPI Narrative: 56-year-old female hx of [place], COPD, CVA, CAD, status presents with altered mental status from home, her family she has been groggy and disoriented, her friend called EMS because they were having trouble waking her up. Patient does take anxiety medications and narcotics, she temperature of 100 in route and had intermittent fevers lower abdominal pain. She denies dysuria productive cough or hemoptysis. Does not know why she was brought and most of the history is obtained from her however she is a very limited historian denies chest pain abdominal pain headache. MD complaint: altered mental status, confusion Onset (ago): Just [employer] Pain Severity: moderate Pain Scale: 3 Context: COPD Associated symptoms: Reports: fever, nausea/vomiting, weakness. Denies: chest pain, cough, rash, shortness of breath, syncope - Related Data Home Medications Medication Instructions Recorded Confirmed Benztropine [Cogentin] 2 mg PO HS 02/17/15 01/14/17 Cholecalciferol (Vitamin D3) 1,000 mg PO DAILY 02/17/15 01/14/17 [Vitamin D] Diazepam [Valium] 7 mg PO BID 02/17/15 01/14/17 Omeprazole [PriLOSEC] 40 mg PO DAILY 02/17/15 01/14/17 Pravastatin Sodium [Pravachol] 40 mg PO HS 02/17/15 01/14/17 Pregabalin [Lyrica] 100 mg PO TID 02/17/15 01/14/17 Albuterol Sulfate [Proair Hfa] 2 puff IH QID PRN 07/20/16 01/14/17 Budesonide/Formoterol 160/4.5 2 puff IH BIDR 07/20/16 01/14/17 [Symbicort 160/4.5] Doxepin HCl 10 mg PO TID 07/20/16 01/14/17 lamoTRIgine [Lamotrigine] 200 mg PO QAM 07/20/16 01/14/17 Albuterol Neb [Proventil Neb] 2.5 mg IH TID PRN 09/15/16 01/14/17 Lurasidone HCl [Latuda] 120 mg PO DAILY 09/15/16 01/14/17 Oxycodone HCl 10 mg PO Q6H PRN 09/15/16 01/14/17 Trazodone HCl 200 mg PO HS 09/15/16 01/14/17 rOPINIRole [Requip] 1 mg PO DAILY 09/15/16 01/14/17 Magnesium Oxide [Mgo] 400 mg PO BID 12/13/16 01/14/17 Mometasone/Formoterol [Dulera 100 2 puff IH BID 12/13/16 01/14/17 Mcg/5 Mcg Inhaler] Previous Rx's Medication Instructions Recorded Aspirin Enteric Coated [Aspirin EC] 81 mg PO DAILY #30 tablet. 10/10/16 Metoprolol [Lopressor] 12.5 mg PO BID #30 tablet 10/10/16 predniSONE [PredniSONE] 10 mg PO DAILY #27 tablet 12/14/16 Allergies Allergy/AdvReac Type Severity Reaction Status Date / Time Erythromycin Base Allergy Swelling Verified 01/13/17 23:43 of Lip/Tongue/Throat hydroxyzine [From Vistaril] Allergy See Verified 01/13/17 23:43 Comments Penicillins Allergy Swelling Verified 01/13/17 23:43 of Lip/Tongue/Throat Review of Systems: As Per HPI Limitations: ROS unobtainable due to patients medical condition (limited due to AMS) Constitutional: Reports: as per HPI, fever, weakness. Denies: chills ENT ED: Denies: ear pain Cardiovascular: Denies: chest pain Respiratory: Denies: cough Gastrointestinal: Reports: as per HPI, abdominal pain Genitourinary: Denies: urgency, dysuria Musculoskeletal: Denies: back pain Integumentary: Denies: rash Neurological: Denies: headache Past Medical History - Past Medical History Attestation: Yes The following information was validated with the patient. Source: patient Medical history: Reports: COPD, CVA, GERD, hyperlipidemia, myocardial infarction , seizures, thyroid disease Surgical history: Reports: , cholecystectomy, hysterectomy, other Psychiatric history: Reports: anxiety, bipolar, depression AIR TRANSPORTATION PROVIDER history: Reports: no AIR TRANSPORTATION PROVIDER history - Social History Smoking Status: Current every day smoker Smokeless Tobacco Status: No Alcohol use: Reports: none Drug use: Reports: marijuana Physical Exam Constitutional: febrile, tachycardic, hypoxic patient appears altered and very weak Eyes: PERRLA, sclera anicteric ENT & Mouth: MM dry Neck: normal inspection, neck is supple Resp: CTA bilaterally, no resp distress CV: Tachycardia, no m/g/r GI: normal inspection, soft, no guarding or rigidity Neuro: GCS 14 for E4V4M6, A&O3, CNII-XII grossly intact, GARG no focal neurologic deficits Skin: on limited exam, skin intact with no rashes or lesions - General Limitations: no limitations General appearance: alert, in no apparent distress Course Course Narrative: 56-year-old female with altered mental state, denies cough concern for possible abdominal or urinary source, she meets criteria for Sirs with heart rate 114 and temp 100.4 we will get CBC BMP troponin EKG basic labs with 2 L fluid bolus which should be her 30 mL/kg and her weight of 63 kg, and we will start broad- spectrum antibiotics after blood cultures and lactate, concern for sepsis versus severe sepsis she will likely be an admission to the ICU or ICU stepdown - Reevaluation(s) Reevaluation #1: Recognize evidence of septic shock, Lactate 3.4, patient blood pressure 87 systolic, 00:30 blood cultures lactates and 2 L of fluid bolus were given, broad -spectrum antibiotics were ordered within the first hour of shock recognition they were initiated, patient has altered mental state, awaiting CT scan and abdominal CT after she is stable, with the first 1 L of fluid in her systolic blood pressure improved to 112 we will continue to monitor her blood pressure closely, initiated block broad-spectrum antibiotics given penicillin allergyVanc aztreonam and Levaquin, Flagyl to cover GI sources. Time: 00:42 Reevaluation #2: Patient's PaO2 came back at 50, no cough or congestion but her sats 88% we will place her on a ventimask. Needs CT scan will add CTA. Time: 01:11 Reevaluation #3: Admitted to Dr Washington added CPK, concerned for NMS, this was ~1000, not elevated compared to previous, pateitn with fluid responsiveness, repeat ABG was ordered. No obvious source possible Pneumonia wuth atelectasis on left lower lobe. Severe Sepsis/Septic Shock Re-Evaluation: I reassessed the patient's volume status and tissue perfusion, performing a full cardiopulmonary exam, skin examination, peripheral pulses evaluation, I assessed their vital signs and capillary refill, and based on my findings found that the patient was volume responsive to their 30mL/kg crystalloid bolus. Time: 03:55 Vital Signs Temperature 100.4 F H 01/13/17 23:44 Pulse Rate 112 01/13/17 23:44 Respiratory Rate 16 01/13/17 23:44 Blood Pressure 102/77 01/13/17 23:44 O2 Sat by Pulse Oximetry 86 01/13/17 23:44 Temperature 98.6 F 01/14/17 04:46 Pulse Rate 110 01/14/17 04:46 Respiratory Rate 16 01/14/17 04:46 Blood Pressure 118/96 01/14/17 04:46 O2 Sat by Pulse Oximetry 94 01/14/17 04:46 Oxygen Delivery Oxygen Delivery O2 Concentrator Altered Mental Status - [facility] Narrative Medical decision making narrative: 56-year-old female with altered mental status, patient was brought in by EMS, generalized weakness no focal deficits or NIH is 0, she is confused her GCS is 14, concern for sepsis given lactic acidosis and leukocytosis however no obvious source of infection, patient was treated with broad-spectrum empiric antibiotics, she did not technically meet criteria for septic shock given that she had a systolic less than 90 she was fluid responsive, she has 2 large-bore IVs she was given 3 L of fluid is no evidence of renal failure, Winkler was placed she is on oxygen Ventimask, repeat ABG showed improvement in oxygenation , she was admitted to the hospitalist service for multiple issues will go to [address] [place] [address] Dr. Washington accepting - Differential Diagnosis Likely: altered mental status, delirium, hypoglycemia, sepsis - Medical Records Medical records reviewed: Yes I reviewed the patient's medical records. - Lab Data Lab results reviewed: Yes I reviewed the patient's lab results. Result diagrams: 01/13/17 23:50 01/13/17 23:50 Lab Results 09/15/17 09/15/17 09/15/17 Range/Units 23:50 23:50 23:50 WBC 14.0 H (4.3-11.1) K/mcL RBC 4.42 (3.82-4.97) M/mcL Hgb 12.7 (11.5-15.4) g/dL Hct 39.1 (35.3-44.9) % MCV 88.5 (83.0-100.0) fL MCH 28.7 (28.0-33.3) pg MCHC 32.5 (31.6-35.5) g/dL RDW 15.8 H (11.5-14.5) % Plt Count 314 (140-400) K/mcL MPV 11.8 (9.4-12.4) fL Immature Gran % 0.4 (0-4) % Seg Neutrophils % 74.8 % Lymphocytes % 15.9 % Monocytes % 8.0 % Eosinophils % 0.7 % Basophils % 0.2 % Neutrophils # 10.5 H (1.6-8.9) K/mcL Lymphocytes # 2.2 (0.6-4.6) K/mcL Monocytes # 1.1 (0.0-1.3) K/mcL Eosinophils # 0.1 (0.0-0.6) K/mcL Basophils # 0.0 (0.0-0.2) K/mcL PT 13.3 H (9.4-12.1) Seconds INR 1.2 APTT 33.1 (26.0-36.0) Seconds ABG pH (7.32-7.45) pH Units ABG pCO2 (35-45) mmHg ABG pO2 (85-104) mmHg ABG HCO3 (21-27) mEq/L ABG Total CO2 (20-26) mEq/L ABG O2 Saturation (95-98) % ABG Base Excess (-2.0 to 3.0) mEq/L Liter Flow L/MIN Blood Gas Modality Inspired O2 % Sodium 135 L (136-145) mEq/L Potassium 3.1 L (3.5-4.5) mEq/L Chloride 98 (98-109) mEq/L Carbon Dioxide 30 H (19-29) mEq/L BUN 9 (7-20) mg/dL Creatinine 0.86 (0.57-1.11) mg/dL Est GFR ( Amer) > 60 (> 60) Est GFR (Non-Af Amer) > 60 (> 60) BUN/Creatinine Ratio 10 (6-26) Glucose 129 H (70-99) mg/dL Calculated Osmolality 280 (280-300) Lactic Acid (0.5-2.2) mmol/L Calcium 9.0 (8.6-10.8) mg/dL Phosphorus 3.1 (2.3-4.7) mg/dL Magnesium 1.6 (1.6-2.6) mg/dL Total Bilirubin 0.5 (0.2-1.2) mg/dL Direct Bilirubin 0.2 (0.0-0.5) mg/dL Indirect Bilirubin 0.3 (0.0-1.2) mg/dL AST 23 (5-34) Units/L ALT 14 (0-55) Units/L Alkaline Phosphatase 172 H (38-126) Units/L Creatine Kinase 1080 H (29-168) Units/L Troponin I (0-0.03) ng/mL Serum Total Protein 5.8 L (6.0-8.3) g/dL Albumin 2.5 L (3.5-5.0) g/dL Globulin 3.3 (2.4-3.5) g/dL Albumin/Globulin Ratio 0.8 L (1.1-2.2) Urine Color (Yellow) Urine Clarity (Clear) Urine pH (5.0-8.0) pH Units Ur Specific [place] (1.010-1.025) Urine Protein (Neg-Trace) mg/dL Urine Glucose (UA) (Normal) mg/dL Urine Ketones (Negative) mg/dL Urine Blood (Negative) Urine Nitrite (Negative) Urine Bilirubin (Negative) Urine Urobilinogen (Normal) mg/dL Ur Leukocyte Esterase (Negative) Ur Culture Indicated? (NO) Urine Opiates Screen (Ioojra=241) ng/mL Ur Barbiturates Screen (Mdvhwy=604) ng/mL Ur Phencyclidine Scrn (Cutoff=25) ng/mL Ur Amphetamines Screen (Lhhxrl=5574) ng/mL U Benzodiazepines Scrn (Xtvbtl=961) ng/mL Urine Cocaine Screen (Cutoff= 300) ng/mL U Marijuana (THC) Screen (Cutoff = 50) ng/mL 01/13/17 01/13/17 01/14/17 Range/Units 23:50 23:50 00:48 WBC (4.3-11.1) K/mcL RBC (3.82-4.97) M/mcL Hgb (11.5-15.4) g/dL Hct (35.3-44.9) % MCV (83.0-100.0) fL MCH (28.0-33.3) pg MCHC (31.6-35.5) g/dL RDW (11.5-14.5) % Plt Count (140-400) K/mcL MPV (9.4-12.4) fL Immature Gran % (0-4) % Seg Neutrophils % % Lymphocytes % % Monocytes % % Eosinophils % % Basophils % % Neutrophils # (1.6-8.9) K/mcL Lymphocytes # (0.6-4.6) K/mcL Monocytes # (0.0-1.3) K/mcL Eosinophils # (0.0-0.6) K/mcL Basophils # (0.0-0.2) K/mcL PT (9.4-12.1) Seconds INR APTT (26.0-36.0) Seconds ABG pH 7.39 (7.32-7.45) pH Units ABG pCO2 48 H (35-45) mmHg ABG pO2 50 L* (85-104) mmHg ABG HCO3 29 H (21-27) mEq/L ABG Total CO2 30.6 H (20-26) mEq/L ABG O2 Saturation 85 L (95-98) % ABG Base Excess 3.4 H (-2.0 to 3.0) mEq/L Liter Flow 3 L/MIN Blood Gas Modality NC Inspired O2 32 % Sodium (136-145) mEq/L Potassium (3.5-4.5) mEq/L Chloride (98-109) mEq/L Carbon Dioxide (19-29) mEq/L BUN (7-20) mg/dL Creatinine (0.57-1.11) mg/dL Est GFR ( Amer) (> 60) Est GFR (Non-Af Amer) (> 60) BUN/Creatinine Ratio (6-26) Glucose (70-99) mg/dL Calculated Osmolality (280-300) Lactic Acid 3.3 H (0.5-2.2) mmol/L Calcium (8.6-10.8) mg/dL Phosphorus (2.3-4.7) mg/dL Magnesium (1.6-2.6) mg/dL Total Bilirubin (0.2-1.2) mg/dL Direct Bilirubin (0.0-0.5) mg/dL Indirect Bilirubin (0.0-1.2) mg/dL AST (5-34) Units/L ALT (0-55) Units/L Alkaline Phosphatase (38-126) Units/L Creatine Kinase (29-168) Units/L Troponin I 0.01 (0-0.03) ng/mL Serum Total Protein (6.0-8.3) g/dL Albumin (3.5-5.0) g/dL Globulin (2.4-3.5) g/dL Albumin/Globulin Ratio (1.1-2.2) Urine Color (Yellow) Urine Clarity (Clear) Urine pH (5.0-8.0) pH Units Ur Specific [place] (1.010-1.025) Urine Protein (Neg-Trace) mg/dL Urine Glucose (UA) (Normal) mg/dL Urine Ketones (Negative) mg/dL Urine Blood (Negative) Urine Nitrite (Negative) Urine Bilirubin (Negative) Urine Urobilinogen (Normal) mg/dL Ur Leukocyte Esterase (Negative) Ur Culture Indicated? (NO) Urine Opiates Screen (Nyocgx=981) ng/mL Ur Barbiturates Screen (Hmssin=234) ng/mL Ur Phencyclidine Scrn (Cutoff=25) ng/mL Ur Amphetamines Screen (Powqsr=7509) ng/mL U Benzodiazepines Scrn (Pfuxzk=910) ng/mL Urine Cocaine Screen (Cutoff= 300) ng/mL U Marijuana (THC) Screen (Cutoff = 50) ng/mL 01/14/17 01/14/17 01/14/17 Range/Units 01:54 02:49 02:49 WBC (4.3-11.1) K/mcL RBC (3.82-4.97) M/mcL Hgb (11.5-15.4) g/dL Hct (35.3-44.9) % MCV (83.0-100.0) fL MCH (28.0-33.3) pg MCHC (31.6-35.5) g/dL RDW (11.5-14.5) % Plt Count (140-400) K/mcL MPV (9.4-12.4) fL Immature Gran % (0-4) % Seg Neutrophils % % Lymphocytes % % Monocytes % % Eosinophils % % Basophils % % Neutrophils # (1.6-8.9) K/mcL Lymphocytes # (0.6-4.6) K/mcL Monocytes # (0.0-1.3) K/mcL Eosinophils # (0.0-0.6) K/mcL Basophils # (0.0-0.2) K/mcL PT (9.4-12.1) Seconds INR APTT (26.0-36.0) Seconds ABG pH (7.32-7.45) pH Units ABG pCO2 (35-45) mmHg ABG pO2 (85-104) mmHg ABG HCO3 (21-27) mEq/L ABG Total CO2 (20-26) mEq/L ABG O2 Saturation (95-98) % ABG Base Excess (-2.0 to 3.0) mEq/L Liter Flow L/MIN Blood Gas Modality Inspired O2 % Sodium (136-145) mEq/L Potassium (3.5-4.5) mEq/L Chloride (98-109) mEq/L Carbon Dioxide (19-29) mEq/L BUN (7-20) mg/dL Creatinine (0.57-1.11) mg/dL Est GFR ( Amer) (> 60) Est GFR (Non-Af Amer) (> 60) BUN/Creatinine Ratio (6-26) Glucose (70-99) mg/dL Calculated Osmolality (280-300) Lactic Acid 3.4 H (0.5-2.2) mmol/L Calcium (8.6-10.8) mg/dL Phosphorus (2.3-4.7) mg/dL Magnesium (1.6-2.6) mg/dL Total Bilirubin (0.2-1.2) mg/dL Direct Bilirubin (0.0-0.5) mg/dL Indirect Bilirubin (0.0-1.2) mg/dL AST (5-34) Units/L ALT (0-55) Units/L Alkaline Phosphatase (38-126) Units/L Creatine Kinase (29-168) Units/L Troponin I (0-0.03) ng/mL Serum Total Protein (6.0-8.3) g/dL Albumin (3.5-5.0) g/dL Globulin (2.4-3.5) g/dL Albumin/Globulin Ratio (1.1-2.2) Urine Color Yellow (Yellow) Urine Clarity Clear (Clear) Urine pH 6.5 (5.0-8.0) pH Units Ur Specific [place] 1.014 (1.010-1.025) Urine Protein Negative (Neg-Trace) mg/dL Urine Glucose (UA) Normal (Normal) mg/dL Urine Ketones Negative (Negative) mg/dL Urine Blood Negative (Negative) Urine Nitrite Negative (Negative) Urine Bilirubin Negative (Negative) Urine Urobilinogen Normal (Normal) mg/dL Ur Leukocyte Esterase Negative (Negative) Ur Culture Indicated? NO (NO) Urine Opiates Screen Negative (Lcjbua=759) ng/mL Ur Barbiturates Screen Negative (Gykpmx=008) ng/mL Ur Phencyclidine Scrn Negative (Cutoff=25) ng/mL Ur Amphetamines Screen Negative (Avgadv=3578) ng/mL U Benzodiazepines Scrn Positive H (Hwedxh=041) ng/mL Urine Cocaine Screen Negative (Cutoff= 300) ng/mL U Marijuana (THC) Screen Positive H (Cutoff = 50) ng/mL 01/14/17 Range/Units 03:22 WBC (4.3-11.1) K/mcL RBC (3.82-4.97) M/mcL Hgb (11.5-15.4) g/dL Hct (35.3-44.9) % MCV (83.0-100.0) fL MCH (28.0-33.3) pg MCHC (31.6-35.5) g/dL RDW (11.5-14.5) % Plt Count (140-400) K/mcL MPV (9.4-12.4) fL Immature Gran % (0-4) % Seg Neutrophils % % Lymphocytes % % Monocytes % % Eosinophils % % Basophils % % Neutrophils # (1.6-8.9) K/mcL Lymphocytes # (0.6-4.6) K/mcL Monocytes # (0.0-1.3) K/mcL Eosinophils # (0.0-0.6) K/mcL Basophils # (0.0-0.2) K/mcL PT (9.4-12.1) Seconds INR APTT (26.0-36.0) Seconds ABG pH 7.37 (7.32-7.45) pH Units ABG pCO2 47 H (35-45) mmHg ABG pO2 68 L (85-104) mmHg ABG HCO3 27 (21-27) mEq/L ABG Total CO2 28.6 H (20-26) mEq/L ABG O2 Saturation 93 L (95-98) % ABG Base Excess 1.4 (-2.0 to 3.0) mEq/L Liter Flow 10 L/MIN Blood Gas Modality OXY MASK Inspired O2 % Sodium (136-145) mEq/L Potassium (3.5-4.5) mEq/L Chloride (98-109) mEq/L Carbon Dioxide (19-29) mEq/L BUN (7-20) mg/dL Creatinine (0.57-1.11) mg/dL Est GFR ( Amer) (> 60) Est GFR (Non-Af Amer) (> 60) BUN/Creatinine Ratio (6-26) Glucose (70-99) mg/dL Calculated Osmolality (280-300) Lactic Acid (0.5-2.2) mmol/L Calcium (8.6-10.8) mg/dL Phosphorus (2.3-4.7) mg/dL Magnesium (1.6-2.6) mg/dL Total Bilirubin (0.2-1.2) mg/dL Direct Bilirubin (0.0-0.5) mg/dL Indirect Bilirubin (0.0-1.2) mg/dL AST (5-34) Units/L ALT (0-55) Units/L Alkaline Phosphatase (38-126) Units/L Creatine Kinase (29-168) Units/L Troponin I (0-0.03) ng/mL Serum Total Protein (6.0-8.3) g/dL Albumin (3.5-5.0) g/dL Globulin (2.4-3.5) g/dL Albumin/Globulin Ratio (1.1-2.2) Urine Color (Yellow) Urine Clarity (Clear) Urine pH (5.0-8.0) pH Units Ur Specific [place] (1.010-1.025) Urine Protein (Neg-Trace) mg/dL Urine Glucose (UA) (Normal) mg/dL Urine Ketones (Negative) mg/dL Urine Blood (Negative) Urine Nitrite (Negative) Urine Bilirubin (Negative) Urine Urobilinogen (Normal) mg/dL Ur Leukocyte Esterase (Negative) Ur Culture Indicated? (NO) Urine Opiates Screen (Sralxm=954) ng/mL Ur Barbiturates Screen (Vsjspo=682) ng/mL Ur Phencyclidine Scrn (Cutoff=25) ng/mL Ur Amphetamines Screen (Yylkub=9842) ng/mL U Benzodiazepines Scrn (Lxzfyc=119) ng/mL Urine Cocaine Screen (Cutoff= 300) ng/mL U Marijuana (THC) Screen (Cutoff = 50) ng/mL - Radiology Data Radiology results reviewed: Yes I reviewed the patient's radiology results. Chest X-Ray 01/13/17 23:52 IMPRESSION: Bilateral scarring versus atelectasis. D/ / Cash Parekh MD / Cash Parekh MD Interpreting Provider: Cash Parekh MD Head CT 01/13/17 23:53 IMPRESSION: No acute intracranial abnormality. D/ / Elis Huerta MD / Elis Huerta MD Interpreting Provider: Elis Huerta MD Chest CTA 01/14/17 01:04 IMPRESSION: No evidence of pulmonary embolism or acute aortic disease. Atelectatic changes worse in the left lower lobe. D/ / Elis Huerta MD / Elis Huerta MD Interpreting Provider: Elis Huerta MD Abdomen/Pelvis CT 01/14/17 01:07 IMPRESSION: 1. No evidence of intra- abdominal abscess or obvious source of sepsis. 2. Bilateral lower lobe atelectatic changes. 3. Mild ileus. D/ / Elis Huerta MD / Elis Huerta MD Interpreting Provider: Elis Huerta MD - EKG Data EKG attestation: Yes I reviewed and interpreted this EKG. EKG shows normal: sinus rhythm Rate: tachycardia (13967 6 bpm MA 135 QRS [address] segment elevations or depressions. Sinus tachycardia) Interpretation: no acute changes - Core Measures AMI Core Measures Followed: No Critical Care Time Critical Care Time: Yes Total Critical Care Time: 45 Attestation: Critical care performed: Time is exclusive of separately billable procedures. Time includes: direct patient care, patient reassessment, coordination of patient care, interpretation of data (laboratory data, radiology data, and respiratory data), review of patient's medical records, medical consultation and documentation of patient care. Procedures included in critical care time: Procedures excluded from critical care time: Attestation Statement - Attestation Attestation: I, Nico Mack MD, personally evaluated this patient and discussed their management with the resident physician. I reviewed the resident's note and agree with the documented findings, medical decision making, and plan of care. 56-year-old female presents to the emergency department with a complaint of generalized weakness and decreased mental status for the past few days. There has been some low-grade fever. No vomiting or diarrhea. No abdominal pain. No increased cough. No chest pain or shortness of breath. On examination patient is a well-developed well-nourished female in no acute distress. She is somewhat drowsy but responds to verbal stimuli and answers questions. There is no cyanosis or diaphoresis. Neck is supple with no meningismus. No lymphadenopathy noted. Chest is nontender to palpation. Breath sounds are decreased but equal bilaterally. No rales or wheezes noted. Heart is regular with a mild tachycardia. Abdomen is soft with normal bowel sounds. No obvious tenderness or distention. Labs reviewed. WBC 14. Lactic acid 3.3. CT of the head negative. CT of the abdomen and pelvis shows no evidence of intra- abdominal abscess or obvious source of sepsis. Bilateral lower lobe atelectatic changes. Mild ileus. CTA of the chest shows no evidence of pulmonary embolism. The hospitalist, Dr. Washington, was consulted and accepted admission of the patient.
[2017-01-14 00:01] LABS: Basophils % 0.2 %; Eosinophils # 0.1 K/mcL (0.0-0.6); Eosinophils % 0.7 %; Hematocrit 39.1 % (35.3-44.9); Hemoglobin 12.7 g/dL (11.5-15.4); Immature Granulocytes % 0.4 % (0-4); Lymphocytes # 2.2 K/mcL (0.6-4.6); Lymphocytes % 15.9 %; Mean Corpuscular HGB Conc 32.5 g/dL (31.6-35.5); Mean Corpuscular Hemoglobin 28.7 pg (28.0-33.3); Mean Corpuscular Volume 88.5 fL (83.0-100.0); Mean Platelet Volume 11.8 fL (9.4-12.4); Monocytes # 1.1 K/mcL (0.0-1.3); Neutrophils # 10.5 K/mcL (1.6-8.9); Platelet Count 314 K/mcL (140-400); Red Blood Count 4.42 M/mcL (3.82-4.97); Red Cell Distribution Width 15.8 % (11.5-14.5); Segmented Neutrophils % 74.8 %
[2017-01-14] MEDS: 0.9 % Sodium Chloride 1,000 ML IVC SCH ×4 (00:04→18:00)
[2017-01-14 00:18] LABS: Activated Partial Thrombo Time 33.1 Seconds (26.0-36.0); Alanine Aminotransferase 14 Units/L (0-55); Albumin 2.5 g/dL (3.5-5.0); Albumin/Globulin Ratio 0.8 (1.1-2.2); Alkaline Phosphatase 172 Units/L (38-126); Aspartate Amino Transferase 23 Units/L (5-34); BUN/Creatinine Ratio 10 (6-26); Bilirubin,Direct 0.2 mg/dL (0.0-0.5); Bilirubin,Indirect 0.3 mg/dL (0.0-1.2); Bilirubin,Total 0.5 mg/dL (0.2-1.2); Blood Urea Nitrogen 9 mg/dL (7-20); Carbon Dioxide 30 mEq/L (19-29); Chloride 98 mEq/L (98-109); Globulin 3.3 g/dL (2.4-3.5); Glucose 129 mg/dL (70-99); INR 1.2; Magnesium 1.6 mg/dL (1.6-2.6); Osmolality,Calculated 280 (280-300); Phosphorous 3.1 mg/dL (2.3-4.7); Potassium 3.1 mEq/L (3.5-4.5); Prothrombin Time 13.3 Seconds (9.4-12.1); Sodium 135 mEq/L (136-145); Total Protein 5.8 g/dL (6.0-8.3); eGFR For African Americans > 60 (> 60); eGFR For Non-African Americans > 60 (> 60)
[2017-01-14] MEDS ORDERED: Levofloxacin 750 MG/150 ML 750 MG/150 ML BAG IVPB ONE (00:26)
[2017-01-14] MEDS ORDERED: MetroNIDAZOLE 500 MG/100 ML 500 MG/100 ML BAG IVPB ONE (00:26)
[2017-01-14] MEDS ORDERED: 0.9 % Sodium Chloride 1,000 ML IVC ONE (00:35)
[2017-01-14] MEDS ORDERED: Aztreonam 2,000 MG in D5% in Water (Mini-Bag+) 100 ML IVPB ONE (00:39)
[2017-01-14] MEDS ORDERED: Vancomycin 1,000 MG in D5% in Water 250 ML IVPB ONE (00:39)
[2017-01-14 00:55] LABS: ABG Base Excess 3.4 mEq/L (-2.0 to 3.0); ABG HCO3 29 mEq/L (21-27); ABG Oxygen Saturation 85 % (95-98); ABG PCO2 48 mmHg (35-45); ABG PH 7.39 pH Units (7.32-7.45); ABG TCO2 30.6 mEq/L (20-26)
[2017-01-14 01:01] LABS: Blood Gas FiO2 32 %; Blood Gas Liter Flow 3 L/MIN
[2017-01-14 01:02] LABS: ABG PO2 50 mmHg (85-104)
[2017-01-14 03:05] LABS: Bilirubin,Urine Negative (Negative); Blood,Urine Negative (Negative); Clarity,Urine Clear (Clear); Color,Urine Yellow (Yellow); Glucose,Urine (UA) Normal (Normal); Ketones,Urine Negative (Negative); Leukocyte Esterase,Urine Negative (Negative); Nitrite,Urine Negative (Negative); PH,Urine 6.5 pH Units (5.0-8.0); Protein,Urine Negative (Neg-Trace); Specific Gravity,Urine 1.014 (1.010-1.025); Urobilinogen,Urine Normal (Normal)
[2017-01-14 03:08] LABS: Amphetamine Screen,Urine Negative ng/mL (Cutoff=1000); Barbiturate Screen,Urine Negative ng/mL (Cutoff=200); Benzodiazepines Screen,Urine Positive ng/mL (Cutoff=200); Cannabinoid Screen,Urine Positive ng/mL (Cutoff = 50); Cocaine Screen,Urine Negative ng/mL (Cutoff= 300); Opiate Screen,Urine Negative ng/mL (Cutoff=300); Phencyclidine Screen,Urine Negative ng/mL (Cutoff=25)
[2017-01-14 03:31] LABS: ABG Base Excess 1.4 mEq/L (-2.0 to 3.0); ABG HCO3 27 mEq/L (21-27); ABG Oxygen Saturation 93 % (95-98); ABG PCO2 47 mmHg (35-45); ABG PH 7.37 pH Units (7.32-7.45); ABG PO2 68 mmHg (85-104); ABG TCO2 28.6 mEq/L (20-26)
[2017-01-14 03:32] LABS: Blood Gas Liter Flow 10 L/MIN
[2017-01-14 03:49] LABS: Creatine Kinase 1080 Units/L (29-168)
--- NOTE | 2017-01-14 04:22 | Internal Med History&Physical ---
<Akbar Nelson - Last Filed: 01/14/17 05:15> Date of Encounter: 01/14/17 Time of Encounter: 04:21 Assessment and Plan (1) Severe sepsis Current visit: Yes Status: Acute Patient met 4 SIRS criteria of WBC 14.0, fever 100.4F, tachycardia HR 110, RR 22 , initial lactic acid 3.3 and repeat lactic acid 3.4. Blood, urine, and sputum cultures ordered CT chest/abd/plv negative, CXR shows bilateral scarring versus atelectasis Continue empiric Levaquin, Azactam, and Vanc until cultures resulted to treat likely community acquired PNA. Patient is allergic to Erythromycin and PCN. (2) Hypoxemia Current visit: Yes Status: Acute ABG reveals chronic primary respiratory acidosis with secondary metabolic alkalosis. Pulse ox 86-94 on RA. Continue to monitor (3) Encephalopathy acute Current visit: Yes Status: Resolved CT brain negative. Patient is A&O x3 at time of exam. Consider polypharmacy vs hyperemia as contributing factor. (4) Anxiety Current visit: No Status: Acute Continue home meds. (5) Parkinson disease Current visit: No Status: Chronic Continue home meds. (6) COPD (chronic obstructive pulmonary disease) Current visit: No Status: Chronic Not in acute exacerbation. Continue home meds, Prednisone, Duonebs, and empiric antibiotics Qualifiers: COPD type: unspecified COPD Qualified Code(s): J44.9 - Chronic obstructive pulmonary disease, unspecified (7) Tobacco abuse Current visit: No Status: Chronic Discussed tobacco cessation (8) DVT prophylaxis Current visit: No Status: Acute Heparin TID Internal Medicine - H&P: HPI Chief complaint: Dizziness Admitted From: Home Plans for Post Hospital Care: Home History of present illness: Ms. Spence is a 56 year old female with a PMH of COPD, CVA, CAD, and Parkinson' s Disease that presented from home because her roommate, Hilary Paredes , noted she had AMS and may have had a seizure. Patient reports feeling dizzy for 3 days and having yellow sputum production. She was found to have fever 100.4F in the ED. Patient was A&Ox3 during time of exam and reported she would like something to eat. Patient denied chills, CP, SOB, abd pain, N/V/V/D, dysuria, weakness, or leg edema. Past Med Surg Social Fam HX - Past Medical History Medical history: COPD, CVA, GERD, hyperlipidemia, myocardial infarction, seizures, thyroid disease Psychiatric history: anxiety, bipolar, depression - Past Surgical History Surgical History: , cholecystectomy, hysterectomy, other - Social History Smoking Status: Current every day smoker Smokeless Tobacco Status: No Alcohol use: none Drug use: marijuana - Family History Mother Hx Family Cardiac Disorders: Yes (HTN) Father Adopted: No Family Member Ethnicity: Non- Living Status: Hx Family Cardiac Disorders: Yes Hx Family Respiratory Disorders: No Hx Family Cancer: Yes Hx Family GI Disorders: No Hx Family Endocrine Disorder: No Hx Family Neuromuscular Disorders: No Hx Family Neurologic Disorders: No Hx Family HEENT Disorders: No Hx Family Autoimmune Disorders: No Internal Medicine - H&P: Meds Benztropine [Cogentin] 2 mg PO HS 02/17/15 [History] Cholecalciferol (Vitamin D3) [Vitamin D] 1,000 mg PO DAILY 02/17/15 [History] Diazepam [Valium] 7 mg PO BID 02/17/15 [History] Omeprazole [PriLOSEC] 40 mg PO DAILY 02/17/15 [History] Pravastatin Sodium [Pravachol] 40 mg PO HS 02/17/15 [History] Pregabalin [Lyrica] 100 mg PO TID 02/17/15 [History] Albuterol Sulfate [Proair Hfa] 2 puff IH QID PRN 07/20/16 [History] Budesonide/Formoterol 160/4.5 [Symbicort 160/4.5] 2 puff IH BIDR 07/20/16 [ History] Doxepin HCl 10 mg PO TID 07/20/16 [History] lamoTRIgine [Lamotrigine] 200 mg PO QAM 07/20/16 [History] Albuterol Neb [Proventil Neb] 2.5 mg IH TID PRN 09/15/16 [History] Lurasidone HCl [Latuda] 120 mg PO DAILY 09/15/16 [History] Oxycodone HCl 10 mg PO Q6H PRN 09/15/16 [History] Trazodone HCl 200 mg PO HS 09/15/16 [History] rOPINIRole [Requip] 1 mg PO DAILY 09/15/16 [History] Aspirin Enteric Coated [Aspirin EC] 81 mg PO DAILY #30 tablet. 10/10/16 [Rx] Metoprolol [Lopressor] 12.5 mg PO BID #30 tablet 10/10/16 [Rx] Magnesium Oxide [Mgo] 400 mg PO BID 12/13/16 [History] Mometasone/Formoterol [Dulera 100 Mcg/5 Mcg Inhaler] 2 puff IH BID 12/13/16 [ History] predniSONE [PredniSONE] 10 mg PO DAILY #27 tablet 12/14/16 [Rx] 3 Allergy/AdvReac Type Severity Reaction Status Date / Time Erythromycin Base Allergy Swelling Verified 01/13/17 23:43 of Lip/Tongue/Throat hydroxyzine [From Vistaril] Allergy See Verified 01/13/17 23:43 Comments Penicillins Allergy Swelling Verified 01/13/17 23:43 of Lip/Tongue/Throat All Systems PM: A 10-system review of systems was performed and is negative for pertinent findings except as documented above in the HPI. - Constitutional Constitutional: no chills, no fever(s), no weight gain, no weight loss - EENT Eyes: no change in vision Nose, mouth and throat: nasal congestion, no sinus pressure, no sore throat - Cardiovascular Cardiovascular ROS IM: palpitations, no chest pain, no dyspnea, no edema - Respiratory Respiratory: cough, chest congestion, excessive phlegm production, change in phlegm color (yellow) - Gastrointestinal Gastrointestinal: no abdominal pain, no bloating, no diarrhea, no nausea, no vomiting - Genitourinary Genitourinary: no dysuria, no urinary frequency, no urinary urgency - Musculoskeletal Musculoskeletal ROS IM: back pain, limited range of motion (chronic), neck pain , no numbness, no stiffness, no tingling - Integumentary Integumentary IM: no erythema, no new lesions, no rash - Neurological Neurological ROS: no confusion, no memory loss, no numbness, no tingling, no weakness - Psychiatric Psychiatric: depression, no anxiety - Endocrine Endocrine IM: no polydipsia, no polyphagia, no polyuria - Constitutional Vitals: Temp Pulse Resp BP Pulse Ox 100.4 F H 102 20 102/79 93 01/13/17 23:44 01/14/17 03:22 01/14/17 03:22 01/14/17 03:22 01/14/17 03:22 General appearance: Present: cooperative, disheveled, A&O X 3, no acute distress , answers questions appropriately - Head Head exam: Present: atraumatic, normal inspection, normocephalic - Eye Eye exam: Present: EOMI, PERRL Pupils: Present: miosis - ENT ENT exam: Present: mucous membranes moist - Expanded ENT Exam Throat exam: Present: post pharyngeal erythema, tonsillar erythema - Neck Neck exam general surgery: Present: normal inspection, supple. Absent: lymphadenopathy, tenderness, nuchal rigidity - Respiratory Respiratory exam: Present: decreased breath sounds, CTAB. Absent: accessory muscle use, rhonchi, wheezes - Cardiovascular Cardiovascular exam: Present: +S1, +S2, tachycardia - GI/Abdominal GI/Abdominal exam: Present: normal bowel sounds, soft. Absent: firm, guarding, rebound, tenderness - Extremities Exam Extremities exam: Present: normal capillary refill, warm. Absent: pedal edema - Back Exam Back exam: Present: normal inspection. Absent: paraspinal tenderness, tenderness - Neurological Exam Neurological exam: Present: alert, oriented X3, no focal deficits, strengths equal and symetr throughout. Absent: altered, motor sensory deficit, speech deficit - Psychiatric Psychiatric exam: Present: anxious, flat affect - Skin Skin exam: Present: dry, normal color (tattoos), warm. Absent: rash Internal Med - H&P Results - Labs CBC & Chem 7: 01/13/17 23:50 01/13/17 23:50 - ABG Interpretation Interpretation: ABG interpreted by me Interpretation: respiratory acidosis (primary), metabolic alkalosis (secondary) - EKG Data -: EKG Interpreted by Myself EKG shows normal: sinus rhythm Rate: tachycardia - EKG Data Prior EKG available for review: yes - Impressions Impressions Chest X-Ray 01/13/17 23:52 IMPRESSION: Bilateral scarring versus atelectasis. D/ / Cash Parekh MD / Cash Parekh MD Interpreting Provider: Cash Parekh MD Head CT 01/13/17 23:53 IMPRESSION: No acute intracranial abnormality. D/ / Elis Huerta MD / Elis Huerta MD Interpreting Provider: Elis Huerta MD Chest CTA 01/14/17 01:04 IMPRESSION: No evidence of pulmonary embolism or acute aortic disease. Atelectatic changes worse in the left lower lobe. D/ / Elis Huerta MD / Elis Huerta MD Interpreting Provider: Elis Huerta MD Abdomen/Pelvis CT 01/14/17 01:07 IMPRESSION: 1. No evidence of intra- abdominal abscess or obvious source of sepsis. 2. Bilateral lower lobe atelectatic changes. 3. Mild ileus. D/ / Elis Huerta MD / Elis Huerta MD Interpreting Provider: Elis Huerta MD <VinOrlin Cordova - Last Filed: 01/14/17 05:38> Date of Encounter: 01/14/17 Internal Medicine - H&P: HPI History of present illness: Ms. Spence is a 56 year old female All Systems PM: A 10-system review of systems was performed and is negative for pertinent findings except as documented above in the HPI. - Constitutional Vitals: Temp Pulse Resp BP Pulse Ox 98.6 F 110 16 118/96 94 01/14/17 04:46 01/14/17 04:46 01/14/17 04:46 01/14/17 04:46 01/14/17 04:46 Internal Med - H&P Results - Labs CBC & Chem 7: 01/13/17 23:50 01/13/17 23:50 - Attending Attestation I examined this patient and my medical decision-making was reviewed with the Resident Physician. I agree with the documented findings, disposition and treatment plan as described except to the extent set forth below. Patient is a 56-year-old female with past medical history of COPD, CVA, GERD, hyperlipidemia, seizure disorder, thyroid disease, anxiety, bipolar disorder and depression. She presents to the ED for altered mental status. Patient was apparently lethargic and her roommate thought that patient may have had a seizure. On examination patient is awake and alert. Not in any distress. She is able to provide history and she is oriented 3. She does not have any obvious focal neurological deficits. Patient does have lactic acidosis and she had fever when she initially came in. She denies chest pain or shortness of breath or abdominal pain or vomiting or diarrhea at this time. No other acute complaints. Patient does have hypoxia and hypercapnia likely due to COPD. She does have elevated white count and also has lactic acidosis. She is on IV antibiotics for sepsis. No other acute events or complaints. Heart rate 110, blood pressure 118/96, O2 sat 94% on 3 L nasal cannula. Heart S1-S2 positive. Lungs bilateral good air entry, minimal wheezing bilaterally. Abdomen soft nontender. Extremities no edema.
[2017-01-14] MEDS ORDERED: Albuterol 2.5 MG/3 ML NEBULIZER IH PRN (04:36)
[2017-01-14] MEDS ORDERED: Vancomycin (wt based) 1,000 MG VIAL IVPB SCH (05:00)
[2017-01-14] MEDS: *HR* Heparin 5,000 UNIT/ML VIAL SQ SCH ×3 (06:58→21:14)
[2017-01-14] MEDS: Famotidine 20 MG/2 ML VIAL IVP SCH ×2 (06:58→17:58)
[2017-01-14] MEDS: rOPINIRole 1 MG TABLET PO SCH ×2 (07:29→10:14)
[2017-01-14] MEDS: Aspirin Enteric Coated 81 MG Tablet PO SCH ×2 (07:29→10:14)
[2017-01-14] MEDS: Cholecalciferol (D-3) 1,000 UNIT TABLET PO SCH ×2 (07:29→10:14)
[2017-01-14] MEDS: Pregabalin 50 MG CAPSULE PO SCH ×4 (07:29→21:14)
[2017-01-14] MEDS: Ipratropium/Albuterol Neb 3 ML IH SCH ×5 (07:50→23:04)
[2017-01-14] MEDS ORDERED: Aztreonam 2,000 MG in D5% in Water (Mini-Bag+) 100 ML IVPB SCH (08:00)
[2017-01-14] MEDS ORDERED: predniSONE 10 MG TABLET PO SCH (09:00)
[2017-01-14] MEDS ORDERED: NON-FORMULARY MEDICATION 1 EACH EACH (Mometasone/Formoterol [Dulera 100 Mcg/5 Mcg Inhaler] IH SCH (09:00)
--- NOTE | 2017-01-14 09:24 | Internal Med Progress Note ---
Date of Encounter: 01/14/17 Time of Encounter: 09:21 - Assessment and plan (1) Severe sepsis Current Visit: Yes Status: Acute (2) Pneumonia Current Visit: Yes Status: Acute Qualifiers: Pneumonia type: aspiration pneumonia Aspiration pneumonia type: unspecified Laterality: bilateral Lung location: lower lobe of lung Qualified Code(s): J69.0 - Pneumonitis due to inhalation of food and vomit (3) COPD with acute exacerbation Current Visit: Yes Status: Acute (4) Chronic respiratory failure Current Visit: Yes Status: Chronic Qualifiers: Respiratory failure complication: hypoxia Qualified Code(s): J96.11 - Chronic respiratory failure with hypoxia (5) Polysubstance abuse Current Visit: Yes Status: Chronic (6) Bipolar disorder Current Visit: Yes Status: Chronic Qualifiers: Active/Remission status: remission status unspecified Qualified Code(s): F31.9 - Bipolar disorder, unspecified (7) GERD (gastroesophageal reflux disease) Current Visit: Yes Status: Chronic Qualifiers: Esophagitis presence: esophagitis presence not specified Qualified Code(s) : K21.9 - Gastro-esophageal reflux disease without esophagitis (8) Parkinson disease Current Visit: Yes Status: Chronic (9) Hyperlipidemia Current Visit: Yes Status: Chronic Qualifiers: Hyperlipidemia type: mixed hyperlipidemia Qualified Code(s): E78.2 - Mixed hyperlipidemia - Subjective Interval history: Ms. Spence is a 56 year old female with a PMH of COPD, CVA, CAD, and Parkinson' s Disease and it for bilateral pneumonia and sepsis and COPD exacerbation. I noted that she is on vancomycin and aztreonam and Levaquin. Instead of aztreonam and Flagyl as started. DC oral steroid and a start intense dose IV steroids and continue nebulizers. Continue IV fluid order CBC and CMP. Potassium KCl 40 given. - Constitutional Vitals: Temp Pulse Resp BP Pulse Ox 98.7 F 97 16 94/62 94 01/14/17 07:17 01/14/17 07:17 01/14/17 07:17 01/14/17 07:17 01/14/17 07:17 General appearance: Present: cooperative, disheveled, A&O X 3, no acute distress , answers questions appropriately - Head Head exam: Present: atraumatic, normocephalic - Eye Eye exam: Present: PERRL, conjuntiva pink, sclera anicteric Pupils: Present: PERRL - Neck Neck exam general surgery: Present: supple, trachea midline. Absent: lymphadenopathy - Respiratory Respiratory exam: Present: CTAB, wheezes. Absent: accessory muscle use, rales, rhonchi - Cardiovascular Cardiovascular exam: Present: RRR, +S1, +S2. Absent: diastolic murmur, gallop, rubs, systolic murmur - GI/Abdominal GI/Abdominal exam: Present: normal bowel sounds, soft, no peritoneal signs. Absent: distended, tenderness - Extremities Exam Extremities exam: Present: warm, radial pulses palpable and symmetrical. Absent : calf tenderness, cyanotic, pedal edema - Neurological Exam Neurological exam: Present: CN II-XII intact, oriented X3, no focal deficits. Absent: pronater drift, facial droop, speech deficit - Skin Skin exam: Present: dry, intact Internal Medicine: Result - Labs CBC & Chem 7: 01/13/17 23:50 01/13/17 23:50 - ABG Interpretation ABG results: ABG ABG pH 7.37 pH Units (7.32-7.45) 01/14/17 03:22 ABG pCO2 47 mmHg (35-45) H 01/14/17 03:22 ABG pO2 68 mmHg (85-104) L 01/14/17 03:22 ABG O2 Saturation 93 % (95-98) L 01/14/17 03:22 PT/INR, D-dimer PT 13.3 Seconds (9.4-12.1) H 01/13/17 23:50 - VTE Documentation of Mechanical Device: Intermittent pneumatic compression device Consult Discharge Plan - Plan Referrals: Ceasar Arce MD [Primary Care Provider] -
[2017-01-14] MEDS ORDERED: Budesonide/Formoterol 160/4.5 MDI IH SCH (10:00)
[2017-01-14] MEDS: Vancomycin 1,000 MG in D5% in Water 250 ML IVPB SCH (13:56)
[2017-01-14] MEDS: MetroNIDAZOLE 500 MG/100 ML 500 MG/100 ML BAG IVPB SCH ×2 (16:35→23:16)
[2017-01-14] MEDS: methylPREDNISolone 125 MG/2 ML VIAL IVP SCH ×2 (16:35→23:18)
[2017-01-14] MEDS: Levofloxacin 750 MG/150 ML 750 MG/150 ML BAG IVPB SCH (17:58)
[2017-01-14] MEDS: Nicotine 21 MG PATCH.TD24 TD SCH (18:02)
[2017-01-15] MEDS: Vancomycin 1,000 MG in D5% in Water 250 ML IVPB SCH ×2 (02:26→15:01)
[2017-01-15] MEDS: Ipratropium/Albuterol Neb 3 ML IH SCH ×6 (03:44→23:17)
[2017-01-15] MEDS: Famotidine 20 MG/2 ML VIAL IVP SCH ×2 (06:56→18:30)
[2017-01-15] MEDS: *HR* Heparin 5,000 UNIT/ML VIAL SQ SCH ×3 (06:56→20:33)
[2017-01-15 07:12] LABS: Basophils % 0.1 %; Hematocrit 36.1 % (35.3-44.9); Hemoglobin 11.7 g/dL (11.5-15.4); Lymphocytes # 0.6 K/mcL (0.6-4.6); Lymphocytes % 7.5 %; Mean Corpuscular HGB Conc 32.4 g/dL (31.6-35.5); Mean Corpuscular Hemoglobin 28.7 pg (28.0-33.3); Mean Corpuscular Volume 88.7 fL (83.0-100.0); Mean Platelet Volume 12.1 fL (9.4-12.4); Monocytes # 0.2 K/mcL (0.0-1.3); Monocytes % 2.5 %; Neutrophils # 7.5 K/mcL (1.6-8.9); Platelet Count 275 K/mcL (140-400); Red Blood Count 4.07 M/mcL (3.82-4.97); Red Cell Distribution Width 15.8 % (11.5-14.5); Segmented Neutrophils % 88.9 %
[2017-01-15 07:13] LABS: Alanine Aminotransferase 13 Units/L (0-55); Albumin 2.1 g/dL (3.5-5.0); Albumin/Globulin Ratio 0.7 (1.1-2.2); Alkaline Phosphatase 158 Units/L (38-126); Aspartate Amino Transferase 14 Units/L (5-34); BUN/Creatinine Ratio 16 (6-26); Bilirubin,Total 0.3 mg/dL (0.2-1.2); Blood Urea Nitrogen 13 mg/dL (7-20); Calcium 8.8 mg/dL (8.6-10.8); Carbon Dioxide 25 mEq/L (19-29); Chloride 109 mEq/L (98-109); Globulin 3.2 g/dL (2.4-3.5); Glucose 130 mg/dL (70-99); Osmolality,Calculated 290 (280-300); Sodium 139 mEq/L (136-145); Total Protein 5.3 g/dL (6.0-8.3); eGFR For African Americans > 60 (> 60); eGFR For Non-African Americans > 60 (> 60)
[2017-01-15 07:30] LABS: Potassium 4.4 mEq/L (3.5-4.5)
[2017-01-15] MEDS: MetroNIDAZOLE 500 MG/100 ML 500 MG/100 ML BAG IVPB SCH ×3 (08:22→23:28)
[2017-01-15] MEDS: Nicotine 21 MG PATCH.TD24 TD SCH (08:25)
[2017-01-15] MEDS: Cholecalciferol (D-3) 1,000 UNIT TABLET PO SCH (08:26)
[2017-01-15] MEDS: Pregabalin 50 MG CAPSULE PO SCH ×3 (08:26→20:33)
[2017-01-15] MEDS: rOPINIRole 1 MG TABLET PO SCH (08:26)
[2017-01-15] MEDS: methylPREDNISolone 125 MG/2 ML VIAL IVP SCH ×3 (08:27→23:26)
[2017-01-15] MEDS: Aspirin Enteric Coated 81 MG Tablet PO SCH (08:27)
[2017-01-15] MEDS: *HR* OxyCODONE Immed Rel 5 MG TABLET PO PRN ×3 (08:33→21:05)
--- NOTE | 2017-01-15 17:46 | Internal Med Progress Note ---
Date of Encounter: 01/15/17 Time of Encounter: 17:44 - Assessment and plan (1) Severe sepsis Current Visit: Yes Status: Acute (2) Pneumonia Current Visit: Yes Status: Acute Qualifiers: Pneumonia type: aspiration pneumonia Aspiration pneumonia type: unspecified Laterality: bilateral Lung location: lower lobe of lung Qualified Code(s): J69.0 - Pneumonitis due to inhalation of food and vomit (3) COPD with acute exacerbation Current Visit: Yes Status: Acute (4) Chronic respiratory failure Current Visit: Yes Status: Chronic Qualifiers: Respiratory failure complication: hypoxia Qualified Code(s): J96.11 - Chronic respiratory failure with hypoxia (5) Polysubstance abuse Current Visit: Yes Status: Chronic (6) Bipolar disorder Current Visit: Yes Status: Chronic Qualifiers: Active/Remission status: remission status unspecified Qualified Code(s): F31.9 - Bipolar disorder, unspecified (7) GERD (gastroesophageal reflux disease) Current Visit: Yes Status: Chronic Qualifiers: Esophagitis presence: esophagitis presence not specified Qualified Code(s) : K21.9 - Gastro-esophageal reflux disease without esophagitis (8) Parkinson disease Current Visit: Yes Status: Chronic (9) Hyperlipidemia Current Visit: Yes Status: Chronic Qualifiers: Hyperlipidemia type: mixed hyperlipidemia Qualified Code(s): E78.2 - Mixed hyperlipidemia - Subjective Interval history: Ms. Spence is a 56 year old female with a PMH of COPD, CVA, CAD, and Parkinson' s Disease and it for bilateral pneumonia and sepsis and COPD exacerbation. I noted that she is on vancomycin and aztreonam and Levaquin. Instead of aztreonam and Flagyl as started. DC oral steroid and a start intense dose IV steroids and continue nebulizers. Continue IV fluid order CBC and CMP. Potassium KCl 40 given. 01/15 patient feels much better. Wants to go home. However become dyspneic when she was talking to me. On incentive spirometry and she could barely do 1200 but could not sustain it for more than couple of breath. Her labs reviewed. Potassium is corrected. White cell count and hemoglobin is stable. Continue current antibiotic treatment as well as IV steroids many naps. Not ready for discharge.. - Constitutional Vitals: Temp Pulse Resp BP Pulse Ox 98.3 F 99 16 96/78 91 01/15/17 14:38 01/15/17 17:21 01/15/17 15:53 01/15/17 14:38 01/15/17 15:53 General appearance: Present: cooperative, disheveled, A&O X 3, no acute distress , answers questions appropriately - Head Head exam: Present: atraumatic, normocephalic - Eye Eye exam: Present: PERRL, conjuntiva pink, sclera anicteric Pupils: Present: PERRL - Neck Neck exam general surgery: Present: supple, trachea midline. Absent: lymphadenopathy - Respiratory Respiratory exam: Present: decreased breath sounds, rhonchi, wheezes. Absent: accessory muscle use, rales - Cardiovascular Cardiovascular exam: Present: RRR, +S1, +S2. Absent: diastolic murmur, gallop, rubs, systolic murmur - GI/Abdominal GI/Abdominal exam: Present: normal bowel sounds, soft, no peritoneal signs. Absent: distended, tenderness - Extremities Exam Extremities exam: Present: warm, radial pulses palpable and symmetrical. Absent : calf tenderness, cyanotic, pedal edema - Neurological Exam Neurological exam: Present: CN II-XII intact, oriented X3, no focal deficits. Absent: pronater drift, facial droop, speech deficit - Skin Skin exam: Present: dry, intact Internal Medicine: Result - Labs CBC & Chem 7: 01/15/17 06:25 01/15/17 06:25 Labs: Short CBC 01/15/17 Range/Units 06:25 WBC 8.4 (4.3-11.1) K/mcL Hgb 11.7 (11.5-15.4) g/dL Hct 36.1 (35.3-44.9) % Plt Count 275 (140-400) K/mcL Neutrophils # 7.5 (1.6-8.9) K/mcL BMP 01/15/17 06:25 Sodium 139 Potassium 4.4 D Chloride 109 Carbon Dioxide 25 BUN 13 Creatinine 0.80 Glucose 130 H Calcium 8.8 Liver Function 01/15/17 Range/Units 06:25 Total Bilirubin 0.3 (0.2-1.2) mg/dL AST 14 (5-34) Units/L ALT 13 (0-55) Units/L Alkaline Phosphatase 158 H (38-126) Units/L Albumin 2.1 L (3.5-5.0) g/dL - ABG Interpretation ABG results: ABG ABG pH 7.37 pH Units (7.32-7.45) 01/14/17 03:22 ABG pCO2 47 mmHg (35-45) H 01/14/17 03:22 ABG pO2 68 mmHg (85-104) L 01/14/17 03:22 ABG O2 Saturation 93 % (95-98) L 01/14/17 03:22 PT/INR, D-dimer PT 13.3 Seconds (9.4-12.1) H 01/13/17 23:50 - VTE Documentation of Mechanical Device: Intermittent pneumatic compression device Consult Discharge Plan - Plan Referrals: Ceasar Arce MD [Primary Care Provider] -
[2017-01-15] MEDS: Levofloxacin 750 MG/150 ML 750 MG/150 ML BAG IVPB SCH (18:32)
[2017-01-15] MEDS ORDERED: rOPINIRole 1 MG TABLET PO SCH (22:00)
[2017-01-16] MEDS: Vancomycin 1,000 MG in D5% in Water 250 ML IVPB SCH ×2 (02:31→14:21)
[2017-01-16 03:38] LABS: Basophils % 0.1 %; Hematocrit 35.6 % (35.3-44.9); Hemoglobin 11.2 g/dL (11.5-15.4); Immature Granulocytes % 0.6 % (0-4); Lymphocytes % 3.8 %; Mean Corpuscular HGB Conc 31.5 g/dL (31.6-35.5); Mean Corpuscular Hemoglobin 27.6 pg (28.0-33.3); Mean Corpuscular Volume 87.7 fL (83.0-100.0); Monocytes % 2.6 %; Neutrophils # 15.8 K/mcL (1.6-8.9); Platelet Count 300 K/mcL (140-400); Red Blood Count 4.06 M/mcL (3.82-4.97); Red Cell Distribution Width 15.8 % (11.5-14.5); Segmented Neutrophils % 92.9 %
[2017-01-16 03:42] LABS: Lymphocytes # 0.7 K/mcL (0.6-4.6); Monocytes # 0.4 K/mcL (0.0-1.3)
[2017-01-16] MEDS: Ipratropium/Albuterol Neb 3 ML IH SCH ×4 (04:06→15:52)
[2017-01-16 05:06] LABS: Alanine Aminotransferase 11 Units/L (0-55); Albumin 2.2 g/dL (3.5-5.0); Albumin/Globulin Ratio 0.6 (1.1-2.2); Alkaline Phosphatase 140 Units/L (38-126); Aspartate Amino Transferase 14 Units/L (5-34); BUN/Creatinine Ratio 15 (6-26); Bilirubin,Total 0.2 mg/dL (0.2-1.2); Blood Urea Nitrogen 14 mg/dL (7-20); Calcium 8.9 mg/dL (8.6-10.8); Carbon Dioxide 23 mEq/L (19-29); Chloride 109 mEq/L (98-109); Globulin 3.5 g/dL (2.4-3.5); Glucose 182 mg/dL (70-99); Osmolality,Calculated 293 (280-300); Sodium 139 mEq/L (136-145); Total Protein 5.7 g/dL (6.0-8.3); eGFR For African Americans > 60 (> 60); eGFR For Non-African Americans > 60 (> 60)
[2017-01-16 05:07] LABS: Potassium 4.1 mEq/L (3.5-4.5)
[2017-01-16] MEDS: *HR* Heparin 5,000 UNIT/ML VIAL SQ SCH ×2 (06:17→13:33)
[2017-01-16] MEDS: Famotidine 20 MG/2 ML VIAL IVP SCH (06:18)
[2017-01-16] MEDS: Nicotine 21 MG PATCH.TD24 TD SCH (08:15)
[2017-01-16] MEDS: Cholecalciferol (D-3) 1,000 UNIT TABLET PO SCH (08:17)
[2017-01-16] MEDS: Pregabalin 50 MG CAPSULE PO SCH ×2 (08:17→13:33)
[2017-01-16] MEDS: Aspirin Enteric Coated 81 MG Tablet PO SCH (08:17)
[2017-01-16] MEDS: methylPREDNISolone 125 MG/2 ML VIAL IVP SCH ×2 (08:18→16:45)
[2017-01-16] MEDS: MetroNIDAZOLE 500 MG/100 ML 500 MG/100 ML BAG IVPB SCH ×2 (08:18→16:45)
[2017-01-16 10:55] VITALS: BP 103/67
[2017-01-16] MEDS: *HR* OxyCODONE Immed Rel 5 MG TABLET PO PRN (14:21)
--- NOTE | 2017-01-16 15:50 | Discharge Summary ---
Date of Encounter: 01/16/17 Time of Encounter: 15:39 - Discharge Diagnosis (1) Severe sepsis Priority: Primary Status: Acute (2) Pneumonia Priority: Primary Status: Acute Qualifiers: Pneumonia type: aspiration pneumonia Aspiration pneumonia type: unspecified Laterality: bilateral Lung location: lower lobe of lung Qualified Code(s): J69.0 - Pneumonitis due to inhalation of food and vomit (3) COPD with acute exacerbation Priority: Secondary Status: Acute (4) Chronic respiratory failure Priority: Secondary Status: Chronic Qualifiers: Respiratory failure complication: hypoxia Qualified Code(s): J96.11 - Chronic respiratory failure with hypoxia (5) Polysubstance abuse Priority: Secondary Status: Chronic (6) Bipolar disorder Priority: Secondary Status: Chronic Qualifiers: Active/Remission status: remission status unspecified Qualified Code(s): F31.9 - Bipolar disorder, unspecified (7) GERD (gastroesophageal reflux disease) Priority: Secondary Status: Chronic Qualifiers: Esophagitis presence: esophagitis presence not specified Qualified Code(s) : K21.9 - Gastro-esophageal reflux disease without esophagitis (8) Parkinson disease Priority: Secondary Status: Chronic (9) Hyperlipidemia Priority: Secondary Status: Chronic Qualifiers: Hyperlipidemia type: mixed hyperlipidemia Qualified Code(s): E78.2 - Mixed hyperlipidemia - Discharge Medications Prescriptions: Ipratropium/Albuterol Neb [Duoneb] 3 ml IH Q6HR #120 inh GuaiFENesin ER [Mucinex] 600 mg PO BID #20 tab Levofloxacin [Levaquin] 750 mg PO DAILY #8 tablet metroNIDAZOLE [Flagyl] 500 mg PO TID #30 tablet Nicotine Patch [Nicoderm] 21 mg TD DAILY #15 patch predniSONE [PredniSONE] 10 mg PO DAILY #75 tablet Home Medications: Benztropine [Cogentin] 1 mg PO HS 02/17/15 [History] Cholecalciferol (Vitamin D3) [Vitamin D] 1,000 mg PO DAILY 02/17/15 [History] Diazepam [Valium] 7 mg PO BID 02/17/15 [History] Omeprazole [PriLOSEC] 40 mg PO DAILY 02/17/15 [History] Pravastatin Sodium [Pravachol] 40 mg PO HS 02/17/15 [History] Pregabalin [Lyrica] 100 mg PO TID 02/17/15 [History] Albuterol Sulfate [Proair Hfa] 2 puff IH QID PRN 07/20/16 [History] Budesonide/Formoterol 160/4.5 [Symbicort 160/4.5] 2 puff IH BIDR 07/20/16 [ History] Doxepin HCl 10 mg PO TID 07/20/16 [History] lamoTRIgine [Lamotrigine] 200 mg PO QAM 07/20/16 [History] Albuterol Neb [Proventil Neb] 2.5 mg IH TID PRN 09/15/16 [History] Lurasidone HCl [Latuda] 120 mg PO DAILY 09/15/16 [History] Oxycodone HCl 10 mg PO Q6H PRN 09/15/16 [History] Trazodone HCl 150 mg PO HS 09/15/16 [History] rOPINIRole [Requip] 2 mg PO HS 09/15/16 [History] Aspirin Enteric Coated [Aspirin EC] 81 mg PO DAILY #30 tablet. 10/10/16 [Rx] Metoprolol [Lopressor] 12.5 mg PO BID #30 tablet 10/10/16 [Rx] Magnesium Oxide [Mgo] 400 mg PO BID 12/13/16 [History] Mometasone/Formoterol [Dulera 100 Mcg/5 Mcg Inhaler] 2 puff IH BID 12/13/16 [ History] GuaiFENesin ER [Mucinex] 600 mg PO BID #20 tab 01/16/17 [Rx] Ipratropium/Albuterol Neb [Duoneb] 3 ml IH Q6HR #120 inh 01/16/17 [Rx] Levofloxacin [Levaquin] 750 mg PO DAILY #8 tablet 01/16/17 [Rx] Nicotine Patch [Nicoderm] 21 mg TD DAILY #15 patch 01/16/17 [Rx] metroNIDAZOLE [Flagyl] 500 mg PO TID #30 tablet 01/16/17 [Rx] predniSONE [PredniSONE] 10 mg PO DAILY #75 tablet 01/16/17 [Rx] Allergies/Adverse Reactions: 3 Allergy/AdvReac Type Severity Reaction Status Date / Time Erythromycin Base Allergy Swelling Verified 01/13/17 23:43 of Lip/Tongue/Throat hydroxyzine [From Vistaril] Allergy See Verified 01/13/17 23:43 Comments Penicillins Allergy Swelling Verified 01/13/17 23:43 of Lip/Tongue/Throat Date of admission: 01/14/17 03:41 Primary care physician: Ceasar Arce MD Consults: 01/14/17 14:46 Consult to Physical Therapy [CONS] Routine Comment: Evaluate, develop and implement POC Reason for Consult: multiple recent falls at home OT [Consult to Occupational Therapy] [CONS] Routine Comment: Evaluate, develop and implement POC Reason for Consult: multiple recent falls at home Discharging clinician: Pierce Bianchi Anticipated date of discharge: 01/16/17 - Patient Status Disposition: Home Health Service Condition: Good Overall status at discharge: patient is progressing back to baseline - Discharge Instructions Instructions: Prednisone (By mouth), Guaifenesin (By mouth), Metronidazole (By mouth), Nicotine (Absorbed through the skin), Levofloxacin (By mouth), Ipratropium/Albuterol (By breathing), Chronic Obstructive Pulmonary Disease (DC) , Pneumonia (DC) Follow Up With: Ceasar Arce MD [Primary Care Provider] - (SENT WEB REQUEST ON 01-16-17 @ 0743 ) - Diet and Activity Activity: increase activity as tolerated Diet: advance to your usual diet Hospital course: MMs. Spence is a 56 year old female with a PMH of COPD, CVA, CAD, and Parkinson 's Disease . She was admitted for bilateral pneumonia and sepsis and COPD exacerbation. I noted that she is on vancomycin and aztreonam and Levaquin. Later we switched her to Levaquin and Flagyl which seems to have worked very well for her and now she is afebrile. Her breathing has improved. She was offered to stay for 1 more day as we have not started tapering the steroid but patient is adamant to leave the hospital. We will be discharging her with caution that if she does not feel better she should return to ER right away and we can readmit her. She will be continued on Levaquin and Flagyl and prednisone and Mucinex by mouth with nebulizers. - Time Spent with Patient Total time spent providing and/or coordinating discharge services: Greater than 30 minutes - Constitutional Vitals: Temp Pulse Resp BP Pulse Ox 98.3 F 85 22 103/67 99 01/16/17 11:15 01/16/17 11:15 01/16/17 11:15 01/16/17 11:15 01/16/17 11:15 General appearance: Present: cooperative, A&O X 3, no acute distress, answers questions appropriately - Head Head exam: Present: atraumatic, normocephalic - Eye Eye exam: Present: PERRL, conjuntiva pink, sclera anicteric Pupils: Present: PERRL - Neck Neck exam general surgery: Present: supple, trachea midline. Absent: lymphadenopathy - Respiratory Respiratory exam: Absent: accessory muscle use, rales, rhonchi, wheezes Additional comments: Bilateral breast sounds have improved scattered wheezing and rhonchi - Cardiovascular Cardiovascular exam: Present: RRR, +S1, +S2. Absent: diastolic murmur, gallop, rubs, systolic murmur - GI/Abdominal GI/Abdominal exam: Present: normal bowel sounds, soft, no peritoneal signs. Absent: distended, tenderness - Extremities Exam Extremities exam: Present: warm, radial pulses palpable and symmetrical. Absent : calf tenderness, cyanotic, pedal edema - Neurological Exam Neurological exam: Present: CN II-XII intact, oriented X3, no focal deficits. Absent: pronater drift, facial droop, speech deficit - Skin Skin exam: Present: dry, intact - VTE Documentation of Mechanical Device: Intermittent pneumatic compression device
[2017-01-16] MEDS ORDERED: Aminoglycoside Consult 1 EACH MC ONE (17:06)
[2017-01-16] MEDS ORDERED: Famotidine 20 MG TABLET PO SCH (21:00)
--- NOTE | 2017-01-16 21:40 | Electrocardiograph Report ---
[address] [address] Test Date: 2017-01-13 Pat Name: July Jordy Department: 103 Room: 2N02 Gender: F Card Grader: : 1960 Requested By: Isaiah Patel Order Number: [id number] Reading MD: Seferino Downs MD Measurements Intervals [place] Rate: 106 P: 22 RI: 137 QRS: 8 QRSD: 82 T: 42 QT: 335 QTc: 397 Interpretive Statements SINUS TACHYCARDIA Electronically Signed On 01-16-2017 21:39:21 EDT by Seferino Downs MD
== END 2017-01-16 17:07 | disposition home health service (06) | DRG 720 ==
LOC: EMEROO 23:40 → 2NNU 01-14 03:41
PROVIDERS: ADMIT Pediatrics; ATTEND Internal Medicine